=== PATIENT | male | born 1950 | race Caucasian/White ===

== ENCOUNTER → 2019-02-13 | Day surgery (SDC) | payer MEDICARE ==
[2019-02-11 12:28] LABS: BASOPHILS % 0.6 % (0.0-1.0); EOSINOPHILS # (AUTO) 0.1 (0.0-0.4); EOSINOPHILS % 3.9 % (0.0-6.0); HEMATOCRIT 43.6 % (38.2-49.6); HEMOGLOBIN 14.2 g/dL (14.0-18.0); LYMPHOCYTES # (AUTO) 0.7 (1.0-3.2); LYMPHOCYTES % 39.2 % (18.0-39.1); MEAN CORPUSCULAR HGB CONC 32.6 g/dL (31-35); MEAN CORPUSCULAR VOLUME 89.2 fL (81-99); MONOCYTES # (AUTO) 0.3 (0.2-0.8); MONOCYTES % 18.2 % (4.4-11.3); NEUTROPHILS # (AUTO) 0.7 (2.1-6.9); NEUTROPHILS % 37.5 % (38.7-80.0); PLATELET COUNT 127 x10e3/uL (140-360); RED BLOOD COUNT 4.89 x10e6/uL (4.3-5.7); RED CELL DISTRIBUTION WIDTH 14.2 % (11.7-14.4)
[2019-02-11 12:51] LABS: ANION GAP 10.2 mmol/L (8-16); BLOOD UREA NITROGEN 18 mg/dL (7-26); BUN/CREATININE RATIO 19 (6-25); CALCIUM 9.2 mg/dL (8.4-10.2); CARBON DIOXIDE 29 mmol/L (22-29); CHLORIDE 105 mmol/L (98-107); CREATININE, SERUM 0.96 mg/dL (0.72-1.25); EST GLOMERULAR FILTRATION RATE > 60 ML/MIN (60-); GLUCOSE 110 mg/dL (74-118); POTASSIUM 4.2 mmol/L (3.5-5.1); SODIUM 140 mmol/L (136-145)
--- NOTE | 2019-02-11 13:58 | Diagnostic Imaging Report ---
EXAMINATION: CHEST 2 VIEWS INDICATION: Preop for biopsy ^PER PROTOCOL ^PRE ADMIT COMPARISON: None FINDINGS: TUBES and LINES: None. LUNGS: Lungs are well inflated. Lungs are clear. There is no evidence of pneumonia or pulmonary edema. PLEURA: No pleural effusion or pneumothorax. HEART AND MEDIASTINUM: The cardiomediastinal silhouette is unremarkable. BONES AND SOFT TISSUES: No acute osseous lesion. Soft tissues are unremarkable. UPPER ABDOMEN: No free air under the diaphragm. IMPRESSION: No acute thoracic abnormality. Signed by: Dr. Patrick Reyes M.D. on 02/11/2019 1:55 PM
[~2019-02-13] MED LIST: ASPIRIN325 MG PO; B&O 60MG R/S 60 MG SUPP PR ONE; CARVEDILOL12.5 MG PO; CO Q-10100 MG PO; DEXAMETHASONE SOD PHOS INJ 4 MG/ML VIAL ONE; EFFIENT10 MG PO; EPHEDRINE SULFATE INJ 50 MG/ML VIAL ONE; FENTANYL CITRATE/PF 100MCG/2 ML INJ ONE; GENTAMICIN 80MG/NS 100 ML 200 ML IV ONE; HYDROCHLOROTHIA25 MG PO; IOPAMIDOL 610MG/1ML 300 MG/ML VIAL IV ONE; LIDOCAINE HCL 2% LOCAL INJ 5 ML SDV VIAL INJ ONE; LISINOPRIL10 MG PO; MIDAZOLAM HCL 2 MG/2 ML VIAL ONE; MULTI-VITAMIN1 EACH PO; NIASPAN500 MG PO; ONDANSETRON HCL INJ 2MG/ML 2ML 2 MG/ML VIAL ONE; PIPER-TAZ 3.375 GM 50 ML ONE; PROPOFOL IV EMULSION 10 MG/ML 20 ML VIAL ONE; SEVOFLURANE INHAL SOLN 250 ML PEN BTL ONE; SIMVASTATIN80 MG PO; TESTOSTERO200 MG/1 M INJ; VIT B PO; VIT D PO
--- OUTSIDE RECORDS SUMMARY | 2019-02-13 08:29 | XMS REPORT ---
Author Author [facility] Address Unknown Phone Unavailable Care Team Providers Care Certified Nurse Aide Name Role Phone JJ LOMAS Unavailable Unavailable Problems This patient has no known problems. Allergies, Adverse Reactions, Alerts This patient has no known allergies or adverse reactions. Medications This patient has no known medications. Results Test Description Test Time Test Comments Text Results Atomic Results Result Comments CHEST 2 VIEWS 2019-02-11 13:54:00 [place] [address] Patient Name: PIERRE PHILLIPS MR #: [id number] : 1950 Age/Sex: 68/M Req #: [id number] Adm Physician: Ordered by: JJ LOMAS MD Report #: [id number] Location: OR Room/Bed: Procedure: [id number] DX/CHEST 2 VIEWS Exam Date: Exam Time: REPORT STATUS: Signed EXAMINATION: CHEST 2 VIEWS INDICATION: Preop for biopsy PER PROTOCOL PRE ADMIT COMPARISON: None FINDINGS: TUBES and LINES: None. LUNGS: Lungs are well inflated. Lungs are clear. There is no evidence of pneumonia or pulmonary edema. PLEURA: No pleural effusion or pneumothorax. HEART AND MEDIASTINUM: The cardiomediastinal silhouette is unremarkable. BONES AND SOFT TISSUES: No acute osseous lesion. Sof t tissues are unremarkable. UPPER ABDOMEN: No free air under the diaphragm. IMPRESSION: No acute thoracic abnormality. Signed by: Dr. Patrick Reyes M.D. on 02/11/2019 1:55 PM Dictated By: PATRICK REYES MD, MD [id number] Transcribed By: LAURA on 02/11/19 1351 COPY TO: JJ LOMAS MD
[2019-02-13 11:15] VITALS: BP 120/79
--- NOTE | 2019-03-22 04:13 | Operative Report ---
DATE OF PROCEDURE: 02/13/2019 SURGEON: Henrique Silva MD PREOPERATIVE DIAGNOSES: 1. Elevated PSA. 2. Obstructive benign prostate hyperplasia.. 3. Incomplete bladder emptying. POSTOPERATIVE DIAGNOSES: 1. Elevated PSA. 2. Obstructive benign prostate hyperplasia.. 3. Incomplete bladder emptying. OPERATIONS PERFORMED: 1. Transrectal sonography interpretation. 2. Interpretation of ultrasonographic guidance for needle biopsies. 3. Transrectal needle biopsy of the prostate (separate procedure performed for the elevated PSA). 4. Cystourethroscopy with bilateral ureteral catheterization and retrograde ureteropyelography (separately procedure performed for the obstructive BPH and incomplete bladder emptying). 5. Interpretation of retrograde ureteropyelography. 6. Supervision of fluoroscopy, no radiologist present. ANESTHESIA: General. COMPLICATIONS: None. CLINICAL SUMMARY: Anthony Quinteros is a 68-year-old man with the above preoperative diagnoses. He is brought for the above procedures. The patient has chronic thrombocytopenia and we plan to monitor this very closely. He is aware of the risks of bleeding, infection, injury to adjacent structures, need for additional procedures and elected to proceed. The patient has also been on hormonal replacement therapy with testosterone. OPERATIVE PROCEDURE IN DETAIL: Informed consent was verified. Anthony Quinteros was properly identified, taken to the operating room, placed on the cystoscopy table in supine position. Anesthesia was uneventfully begun. He was carefully and gently repositioned in dorsal lithotomy position with all pressure points well padded. Digital rectal examination revealed a 35 g prostate, smooth, nonfluctuant without any nodules. Transrectal sonography was then performed. Interpretation of transrectal sonography. The patient's prostate volume is 43 mL. There was a hypoechoic area at the left peripheral zone at the mid and at the base. There were some calcifications noted diffusely. The capsule was smooth. The seminal vesicles were unremarkable. With ultrasonographic guidance, needle biopsies of the prostate were taken. A total of 12 biopsies were taken. These were sent in 6 containers, differentiated between right versus left and base versus mid versus apex. Following obtaining of the 12 biopsies, there was no significant bleeding noted. The patient's genitalia were then prepared and draped in usual sterile fashion. The cystoscope sheath with the visual obturator in place was atraumatically inserted into the patient's urethra. It was guided unremarkable distal urethra through the sphincteric region exhibited some hyperemia of the mucosa. We went through the normal sphincter and it went through the prostate bed, which was significant for bilobar prostatic hypertrophy with kissing lateral lobes. Panendoscopy of the bladder revealed trabeculations, but no tumors, no stones, no diverticula. No suspicious mucosal lesions were identified. An 8-Irish catheter was used to cannulate each ureter and retrograde ureteropyelograms were performed. Interpretation of retrograde ureteropyelography contrast was instilled in retrograde fashion bilaterally. There were no tumors, no stones, and no diverticula. Unobstructed drainage was observed bilaterally fluoroscopically. The patient's bladder was drained. The cystoscope was withdrawn. Belladonna and opium suppository was placed and the patient was uneventfully reversed from anesthesia and taken to recovery room in stable condition. Explicit postoperative instructions were given. We will follow the patient up in the office. MD DONAVAN Romo/MODL /[id number]
== END | disposition home or self-care (01) ==
LOC: OR 08:20
PROVIDERS: ATTEND Urology
DX: R97.20 Elevated prostate specific antigen [PSA] (principal); N41.0 Acute prostatitis; N41.1 Chronic prostatitis; N40.1 Benign prostatic hyperplasia with lower urinary tract symptoms; N13.8 Other obstructive and reflux uropathy; R39.14 Feeling of incomplete bladder emptying; N32.89 Other specified disorders of bladder; D69.6 Thrombocytopenia, unspecified; G47.33 Obstructive sleep apnea (adult) (pediatric); I25.10 Atherosclerotic heart disease of native coronary artery without angina pectoris; I25.2 Old myocardial infarction; Z01.810 Encounter for preprocedural cardiovascular examination; Z01.812 Encounter for preprocedural laboratory examination; Z01.818 Encounter for other preprocedural examination; Z79.82 Long term (current) use of aspirin; Z87.891 Personal history of nicotine dependence; Z95.5 Presence of coronary angioplasty implant and graft
CPT/HCPCS: 36415; 52005; 55700; 71046; 74420; 76872; 80048; 85025; 86850; 86900; 88305; 93005; C1758; J1100; J1580; J2001; J2250; J2405; J2543; J2704; Q9967; 76998; J3010

== ENCOUNTER 2020-07-24 12:13 | Inpatient (IN) | payer MEDICARE ==
[2020-07-21 10:19] LABS: EOSINOPHILS # (AUTO) 0.1 (0.0-0.4); HEMATOCRIT 39.1 % (38.2-49.6); HEMOGLOBIN 12.5 g/dL (14.0-18.0); LYMPHOCYTES # (AUTO) 0.4 (1.0-3.2); LYMPHOCYTES % 10.1 % (18.0-39.1); MEAN CORPUSCULAR HEMOGLOBIN 27.2 pg (28-32); MEAN CORPUSCULAR VOLUME 85.2 fL (81-99); MONOCYTES # (AUTO) 0.6 (0.2-0.8); NEUTROPHILS # (AUTO) 2.9 (2.1-6.9); NEUTROPHILS % 71.7 % (38.7-80.0); PLATELET COUNT 128 x10e3/uL (140-360); RED BLOOD COUNT 4.59 x10e6/uL (4.3-5.7); RED CELL DISTRIBUTION WIDTH 17.7 % (11.7-14.4)
[2020-07-21 10:49] LABS: ALANINE AMINOTRANSFERASE 31 IU/L (0-55); ALBUMIN 3.2 g/dL (3.5-5.0); ALBUMIN/GLOBULIN RATIO 1.6 (0.8-2.0); ALKALINE PHOSPHATASE 195 IU/L (40-150); ANION GAP 11.2 mmol/L (8-16); BLOOD UREA NITROGEN 11 mg/dL (7-26); BUN/CREATININE RATIO 12 (6-25); CALCIUM 9.2 mg/dL (8.4-10.2); CARBON DIOXIDE 30 mmol/L (22-29); CHLORIDE 105 mmol/L (98-107); CREATININE, SERUM 0.92 mg/dL (0.72-1.25); EST GLOMERULAR FILTRATION RATE > 60 ML/MIN (60-); GLUCOSE 75 mg/dL (74-118); POTASSIUM 4.2 mmol/L (3.5-5.1); SODIUM 142 mmol/L (136-145)
--- NOTE | 2020-07-21 10:53 | Diagnostic Imaging Report ---
EXAMINATION: CHEST 2 VIEWS INDICATION: Pre-operative COMPARISON: Chest radiograph 02/11/2019 FINDINGS: LINES/TUBES:Right chest port with tip in the SVC. LUNGS:The lungs are well-inflated. No focal consolidation or pulmonary edema. PLEURA:No pleural effusion or pneumothorax. MEDIASTINUM:The cardiomediastinal silhouette appears normal in size and shape. Atherosclerotic calcifications of the thoracic aorta. BONES/SOFT TISSUES:No acute osseous injury. ABDOMEN:No free air under the diaphragm. IMPRESSION: No focal pneumonia or pulmonary edema. Signed by: Mady Whipple MD on 07/21/2020 10:50 AM
[~2020-07-24] VITALS: Ht 177.8 cm; Wt 66.2 kg
[~2020-07-24 12:13] MED LIST changes: +ALLOPURINOL100 MG PO; +ASPIRIN81 MG PO; -B&O 60MG R/S 60 MG SUPP PR ONE; -DEXAMETHASONE SOD PHOS INJ 4 MG/ML VIAL ONE; +DOXAZOSIN MESYLA2 MG PO; -EPHEDRINE SULFATE INJ 50 MG/ML VIAL ONE; -FENTANYL CITRATE/PF 100MCG/2 ML INJ ONE; +FLOMAX0.4 MG PO; +FUROSEMIDE40 MG PO; -GENTAMICIN 80MG/NS 100 ML 200 ML IV ONE; -IOPAMIDOL 610MG/1ML 300 MG/ML VIAL IV ONE; -LIDOCAINE HCL 2% LOCAL INJ 5 ML SDV VIAL INJ ONE; +LOVENOX60 MG/0.6 SC; -MIDAZOLAM HCL 2 MG/2 ML VIAL ONE; -ONDANSETRON HCL INJ 2MG/ML 2ML 2 MG/ML VIAL ONE; -PIPER-TAZ 3.375 GM 50 ML ONE; -PROPOFOL IV EMULSION 10 MG/ML 20 ML VIAL ONE; -SEVOFLURANE INHAL SOLN 250 ML PEN BTL ONE
[2020-07-24] MEDS ORDERED: SEVOFLURANE INHAL SOLN 250 ML PEN BTL ONE (12:37)
[2020-07-24] MEDS ORDERED: DEXAMETHASONE SOD PHOS INJ 4 MG/ML VIAL ONE (12:37)
[2020-07-24] MEDS ORDERED: LIDOCAINE HCL 2% LOCAL INJ 5 ML SDV VIAL INJ ONE (12:37)
[2020-07-24] MEDS ORDERED: ONDANSETRON HCL INJ 2MG/ML 2ML 2 MG/ML VIAL ONE (12:37)
[2020-07-24] MEDS ORDERED: PROPOFOL IV EMULSION 10 MG/ML 20 ML VIAL ONE (12:37)
[2020-07-24] MEDS ORDERED: CEFTRIAXONE SOD 1 GM/NS 50 ML 50 ML IV ONE (12:39)
[2020-07-24] MEDS ORDERED: GENTAMICIN 80MG/NS 100 ML 200 ML IV ONE (12:39)
[2020-07-24] MEDS ORDERED: FENTANYL CITRATE/PF 100MCG/2 ML INJ ONE (12:53)
[2020-07-24] MEDS ORDERED: MIDAZOLAM HCL 2 MG/2 ML VIAL ONE (12:53)
[2020-07-24] MEDS ORDERED: CARVEDILOL12.5 MG PO (13:05)
[2020-07-24] MEDS ORDERED: NITROGLYCERIN0.4 MG SL (13:05)
[2020-07-24] MEDS ORDERED: GABAPENTIN100 MG PO (13:05)
[2020-07-24] MEDS ORDERED: LOPERAMIDE2 MG PO (13:05)
[2020-07-24] MEDS ORDERED: AZELASTINE137 MCG/0. (13:05)
[2020-07-24] MEDS ORDERED: KETOCONAZOLE15 GM TOP (13:05)
[2020-07-24] MEDS ORDERED: QUESTRAN PACKET4 GM PO (13:05)
[2020-07-24] MEDS ORDERED: IOPAMIDOL 300MG/ML 50ML INFUS..BTL IV ONE (13:26)
[2020-07-24] MEDS ORDERED: B&O 60MG R/S 60 MG SUPP PR ONE (13:26)
[2020-07-24] MEDS ORDERED: PHENAZOPYRIDINE HCL 100 MG TAB PO PRN (14:15)
[2020-07-24] MEDS ORDERED: ONDANSETRON HCL INJ 2MG/ML 2ML 2 MG/ML VIAL IV PRN ×2 (14:15→18:00)
[2020-07-24] MEDS ORDERED: ACETAMINOPHEN/CODEINE 300MG - 30MG TAB PO PRN (14:15)
[2020-07-24] MEDS ORDERED: DIPHENHYDRAMINE HCL 25 MG CAP PO PRN (14:15)
[2020-07-24] MEDS ORDERED: B&O 60MG R/S 60 MG SUPP PR PRN (14:15)
[2020-07-24 14:41] LABS: BASOPHILS % 0.5 % (0.0-1.0); EOSINOPHILS % 0.9 % (0.0-6.0); HEMATOCRIT 36.7 % (38.2-49.6); HEMOGLOBIN 11.8 g/dL (14.0-18.0); LYMPHOCYTES # (AUTO) 0.4 (1.0-3.2); LYMPHOCYTES % 9.2 % (18.0-39.1); MEAN CORPUSCULAR HEMOGLOBIN 27.2 pg (28-32); MEAN CORPUSCULAR HGB CONC 32.2 g/dL (31-35); MEAN CORPUSCULAR VOLUME 84.6 fL (81-99); MONOCYTES # (AUTO) 0.4 (0.2-0.8); MONOCYTES % 9.4 % (4.4-11.3); NEUTROPHILS # (AUTO) 3.4 (2.1-6.9); NEUTROPHILS % 79.8 % (38.7-80.0); PLATELET COUNT 111 x10e3/uL (140-360); RED BLOOD COUNT 4.34 x10e6/uL (4.3-5.7); RED CELL DISTRIBUTION WIDTH 17.6 % (11.7-14.4)
[2020-07-24] MEDS ORDERED: MORPHINE SULFATE INJ 4 MG/ML INJ 1ML ONE (14:43)
--- OUTSIDE RECORDS SUMMARY | 2020-07-24 14:44 | XMS REPORT | Clinical Summary ---
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 Active simvastatin (ZOCOR) 80 MG Take 80 mg by 0 tablet mouth nightly. Active b complex vitamins Take 1 0 capsule capsule by mouth daily. Active cholecalciferol, vitamin Take 5,000 0 D3, (VITAMIN D3) 125 mcg Units by (5,000 unit) Tab mouth daily. Active azelastine (ASTELIN) 137 1 spray by 0 mcg (0.1 %) nasal spray Nasal route 2 (two) times daily Use in each nostril as directed . 05/22/2021 Active ketoconazole (NIZORAL) 2 Apply 30 g 1 1 % cream topically 2 0 (two) times daily. 08/20/2020 Active tamsulosin (FLOMAX) 0.4 Take 1 30 capsule 2 mg Cap 24 hr capsule capsule (0.4 0 mg total) by mouth daily for 90 days. 08/20/2020 Active enoxaparin (LOVENOX) 40 Inject 0.4 12 mL 2 mg/0.4 mL Syrg mLs (40 mg 0 total) subcutaneousl y daily for 90 days. 08/20/2020 Active carvediloL (COREG) 6.25 Take 4 240 tablet 2 MG tablet tablets (25 0 mg total) by mouth 2 (two) times daily with breakfast and dinner for 90 days. Active banana Take 1 packet 60 each 0 [id number]. by mouth 2 0 (BANATROL PLUS) PwPk (two) times daily. 08/20/2020 Active furosemide (LASIX) 20 MG Take 2 60 tablet 2 1 tablet tablets (40 0 mg total) by mouth daily for 90 days. 08/20/2020 Active allopurinoL (ZYLOPRIM) Take 1 tablet 30 tablet 2 1 100 MG tablet (100 mg 0 total) by mouth daily for 90 days. 05/22/2020 Discontinued (Reorder) carvediloL (COREG) 25 MG Take 25 mg by 0 tablet mouth 2 (two) times daily with breakfast and dinner. 05/22/2020 Discontinued (Stop Taking at Discharge) prasugreL (EFFIENT) 10 mg Take 10 mg by 0 Tab tablet mouth daily. 05/22/2020 Discontinued (Stop Taking at Discharge) aspirin 325 MG tablet Take 325 mg 0 by mouth daily. 05/22/2020 Discontinued (Stop Taking at Discharge) lisinopriL Take 10 mg by 0 (PRINIVIL,ZESTRIL) 10 MG mouth daily. tablet 05/22/2020 Discontinued (Reorder) furosemide (LASIX) 20 MG Take 20 mg by 0 tablet mouth 2 (two) times daily. 05/22/2020 Discontinued (Stop Taking at Discharge) doxazosin (CARDURA) 2 MG Take 2 mg by 0 tablet mouth nightly. 05/22/2020 Discontinued (Reorder) furosemide (LASIX) 20 MG Take 2 20 tablet 0 1 tablet tablets (40 0 mg total) by mouth daily. 05/22/2020 Discontinued allopurinoL (ZYLOPRIM) Take 1 tablet 30 tablet 2 1 100 MG tablet (100 mg 0 total) by mouth daily for 90 days. 05/27/2020 cefdinir (OMNICEF) 300 MG Take 1 10 capsule 0 capsule capsule (300 0 mg total) by mouth every 12 (twelve) hours for 5 days. 06/01/2020 loperamide (IMODIUM) 2 mg Take 1 30 capsule 0 capsule capsule (2 mg 0 total) by mouth 4 (four) times daily as needed for Diarrhea for up to 10 days. Active Problems Problem Noted Date Coronary artery disease involving [place] coronary art tian 05/15/2020 SOB (shortness of breath) on exertion 05/15/2020 Waldenstrom macroglobulinemia 05/15/2020 Neutropenia, drug-induced (HCC)-improved 05/15/2020 Pedal edema 05/15/2020 Pulmonary emboli 2020 Encounters Care Team Description Date Type Specialty 05/14/2020 Travel Nicolas Harding MD Pierce, MD David Davidson, Mirlande Crabtree MD SOB (shortness of breath) (Primary Dx); Pulmonary embolism without acute cor pulmonale, unspecified chronicity, unspecified pulmonary embolism type (HCC); Waldenstrom macroglobulinemia (HCC); Thrombocytopenia (HCC); Coronary artery disease involving [place] heart without angina pectoris, unspecified vessel or lesion type; Pulmonary embolism, unspecified chronicity, unspecified pulmonary embolism type, unspecified whether acute cor pulmonale present (HCC); ISAAC (acute kidney injury) (HCC); Hyponatremia; Diarrhea, unspecified type; Urinary retention; Gross hematuria; Acute cystitis with hematuria 2020 Hospital General Internal Mi dicine - Encounter 05/22/2020 2020 Orders Only General Internal Mi dicine 2020 Travel after 07/24/2019 Social History Date Tobacco Use Types Packs/Day Years Used Never Smoker Smokeless Tobacco: Never Used Drinks/Week oz/Week Comments Alcohol Use No Alcohol Habits Answer Date Recorded How often do you have a drink containing alcohol? Never 2020 How many drinks containing alcohol do you have on No t asked a typical day when you are drinking? How often do you have six or more drinks on one Not asked occasion? Sex Assigned at Date Recorded Not on file Last Filed Vital Signs Reading Time Taken Comments Vital Sign 139/71 05/22/2020 7:47 PM CDT Blood Pressure 72 05/22/2020 7:47 PM CDT Pulse 36.8 C (98.2 F) 05/22/2020 7:47 PM CDT Temperature 18 05/22/2020 7:47 PM CDT Respiratory Rate 96% 05/22/2020 7:47 PM CDT Oxygen Saturation - - Inhaled Oxygen Concentration 96.6 kg (213 lb) 05/20/2020 6:00 AM CDT Weight 177.8 cm (5' 10") 05/14/2020 3:18 AM CDT Height 30.56 05/14/2020 3:18 AM CDT Body Mass Index Plan of Treatment Health Maintenance Due Date Last Done Comments COLON CANCER SCREENING 1950 COLONOSCOPY PNEUMOCOCCAL 65+ YRS (1 2013 of 1 - [id number]) Medicare IPPE (WELCOME TO 08/21/2019 MEDICARE) INFLUENZA VACCINE (#1) 2020 Procedures Comments Procedure Name Priority Date/Time Associated Diag nosis CBC W/PLT COUNT & AUTO STAT 05/22/2020 DIFFERENTIAL 5:08 AM CDT PHOSPHORUS Routine 05/22/2020 5:08 AM CDT MAGNESIUM STAT 05/22/2020 5:08 AM CDT BASIC METABOLIC PANEL (7) STAT 05/22/2020 5:08 AM CDT CBC W/PLT COUNT & AUTO STAT 05/22/2020 DIFFERENTIAL 5:08 AM CDT CBC W/PLT COUNT & AUTO STAT 05/21/2020 DIFFERENTIAL 6:11 AM CDT PHOSPHORUS Routine 05/21/2020 6:11 AM CDT MAGNESIUM STAT 05/21/2020 6:11 AM CDT BASIC METABOLIC PANEL (7) STAT 05/21/2020 6:11 AM CDT CBC W/PLT COUNT & AUTO STAT 05/21/2020 DIFFERENTIAL 6:11 AM CDT SARS-COV2/RT-PCR ([facility] & STAT 05/21/2020 REF LABS) 6:11 AM CDT URINE CULTURE Routine 05/20/2020 12:36 PM CDT CBC W/PLT COUNT & AUTO STAT 05/20/2020 DIFFERENTIAL 11:51 AM CDT PHOSPHORUS Routine 05/20/2020 11:51 AM CDT MAGNESIUM STAT 05/20/2020 11:51 AM CDT BASIC METABOLIC PANEL (7) STAT 05/20/2020 11:51 AM CDT CBC W/PLT COUNT & AUTO STAT 05/20/2020 DIFFERENTIAL 11:51 AM CDT STOOL PATH CHARGE Routine 05/20/2020 11:46 AM CDT SHIGA TOXIN SCREEN Routine 05/20/2020 11:46 AM CDT STOOL CULTURE + SHIGA Routine 05/20/2020 TOXIN 11:46 AM CDT C. DIFFICILE GDH TOXIN Routine 05/20/2020 11:44 AM CDT URINALYSIS W/ MICROSCOPIC Routine 05/20/2020 3:[address] ABDOMEN/PELVIS WITHOUT LEONARDO 05/20/2020 IV CONTRAST 2:50 AM CDT US RENAL COMPLETE Routine 05/19/2020 5:40 PM CDT KAPPA / LAMBDA LIGHT Routine 05/19/2020 CHAINS, SERUM 4:23 PM CDT MAGNESIUM Routine 05/19/2020 12:22 PM CDT BASIC METABOLIC PANEL (7) Routine 05/19/2020 12:22 PM CDT CBC W/PLT COUNT & AUTO Routine 05/19/2020 DIFFERENTIAL 5:57 AM CDT MAGNESIUM Routine 05/19/2020 5:57 AM CDT BASIC METABOLIC PANEL (7) Routine 05/19/2020 5:57 AM CDT CBC W/PLT COUNT & AUTO Routine 05/19/2020 DIFFERENTIAL 5:[address] BRAIN WITHOUT IV STAT 05/19/2020 CONTRAST 1:22 AM CDT APTT Routine 05/18/2020 2:42 PM CDT APTT Routine 05/18/2020 1:17 PM CDT APTT Routine 05/18/2020 6:04 AM CDT APTT Routine 05/18/2020 4:23 AM CDT APTT Routine 05/18/2020 2:07 AM CDT CBC W/PLT COUNT & AUTO Routine 05/18/2020 DIFFERENTIAL 1:16 AM CDT CBC W/PLT COUNT & AUTO Routine 05/18/2020 DIFFERENTIAL 1:16 AM CDT MAGNESIUM Routine 05/18/2020 1:15 AM CDT BASIC METABOLIC PANEL (7) Routine 05/18/2020 1:15 AM CDT TRANSFUSION SERVICE 05/17/2020 REPORT - SCAN 6:00 PM CDT APTT Routine 05/17/2020 5:36 PM CDT PERIPHERAL BLOOD SMEAR - Routine 05/17/2020 HOLD ONLY 5:36 PM CDT CBC W/PLT COUNT & AUTO Routine 05/17/2020 DIFFERENTIAL 2:28 PM CDT MAGNESIUM Routine 05/17/2020 2:28 PM CDT BASIC METABOLIC PANEL (7) Routine 05/17/2020 2:28 PM CDT CBC W/PLT COUNT & AUTO Routine 05/17/2020 DIFFERENTIAL 2:28 PM CDT PREPARE LEUKO-REDUCED Routine 05/16/2020 PLATELETS 11:54 PM CDT TRANSFUSION SERVICE 05/16/2020 REPORT - SCAN 6:01 PM CDT URINE PROTEIN AP Routine 05/16/2020 ELECTROPHORESIS, 24 HOUR 2:56 PM CDT CBC W/PLT COUNT & AUTO Routine 05/16/2020 DIFFERENTIAL 6:11 AM CDT CBC W/PLT COUNT & AUTO Routine 05/16/2020 DIFFERENTIAL 6:11 AM CDT BASIC METABOLIC PANEL (7) Routine 05/16/2020 6:11 AM CDT TRANSFUSION SERVICE 05/15/2020 REPORT - SCAN 6:01 PM CDT REPORT OF PROCEDURE - 05/15/2020 ENDOSCOPY SCAN 9:53 AM CDT CBC W/PLT COUNT & AUTO Routine 05/15/2020 DIFFERENTIAL 4:51 AM CDT VITAMIN B12 AND FOLATE Routine 05/15/2020 4:51 AM CDT B-TYPE NATRIURETIC FACTOR Routine 05/15/2020 (BNP) 4:51 AM CDT CBC W/PLT COUNT & AUTO Routine 05/15/2020 DIFFERENTIAL 4:51 AM CDT BASIC METABOLIC PANEL (7) Routine 05/15/2020 4:51 AM CDT TRANSFUSE LEUKO-REDUCED Routine 05/15/2020 PLATELETS 3:48 AM CDT ED ECG INTERPRETATION Routine 05/15/2020 2:12 AM CDT TRANSFUSE LEUKO-REDUCED Routine 05/15/2020 PLATELETS 1:19 AM CDT ABORH, MANUAL STAT 05/14/2020 8:07 PM CDT TYPE AND SCREEN, Routine 05/14/2020 AUTOMATED 6:41 PM CDT VENOUS DOPPLER LEGS LEONARDO 05/14/2020 BILATERAL 3:00 PM CDT 2D ECHO W/ DOPPLER STAT 05/14/2020 (CW/PW/COLOR) 2:15 PM CDT HAPTOGLOBIN Routine 05/14/2020 1:07 PM CDT FIBRINOGEN Routine 05/14/2020 1:07 PM CDT B-TYPE NATRIURETIC FACTOR LEONARDO 05/14/2020 (BNP) 10:05 AM CDT TROPONIN I LEONARDO 05/14/2020 10:04 AM CDT CBC W/PLT COUNT & AUTO Routine 05/14/2020 DIFFERENTIAL 5:07 AM CDT CBC W/PLT COUNT & AUTO Routine 05/14/2020 DIFFERENTIAL 5:07 AM CDT BASIC METABOLIC PANEL (7) Routine 05/14/2020 5:07 AM CDT SARS-COV2/RT-PCR ([facility] & STAT 05/14/2020 REF LABS) 12:[address] CHEST PE TEST DESIGN STAT 2020 9:27 PM CDT LACTIC ACID, VENOUS STAT 2020 7:34 PM CDT XR CHEST 1 VIEW STAT 2020 PORTABLE/BEDSIDE 5:58 PM CDT CBC W/PLT COUNT & AUTO STAT 2020 DIFFERENTIAL 5:52 PM CDT APTT STAT 2020 5:52 PM CDT PROTHROMBIN TIME/INR STAT 2020 5:52 PM CDT COMPREHENSIVE METABOLIC STAT 2020 PANEL 5:52 PM CDT LACTIC ACID, VENOUS STAT 2020 5:52 PM CDT CBC W/PLT COUNT & AUTO STAT 2020 DIFFERENTIAL 5:52 PM CDT BLOOD CULTURE STAT 2020 5:52 PM CDT BLOOD CULTURE STAT 2020 5:52 PM CDT ECG 12-LEAD Routine 2020 5:24 PM CDT ECG 12-LEAD Routine 2020 5:24 PM CDT Procedure Note - Interface, External Ris In - 2020 8:05 PM CDT Ventricula r Rate 66 BPM Atrial Rate 66 BPM P-R Interval 208 ms QRS Duration 90 ms Q-T Interval 426 ms QTC Calculatio n(Bazett) 446 ms P York 39 degrees R York -9 degrees T York 176 degrees Normal sinus rhythm Possible Left atrial enlargemen t Anterior infarct (cited on or before 0) T wave abnormalit y, consider lateral ischemia Abnormal ECG When compared with ECG of 1 10:24, Serial changes of Anterior infarct Present after 07/24/2019 Results * CBC with platelet count + automated diff (05/22/2020 5:08 AM CDT) Only the most recent of 10 results within the time period is included. WBC 3.9 3.5 - 10.5 K/L [facility] RBC 4.32 (L) 4.63 - 6.08 M/L [facility] Hemoglobin 11.6 (L) 13.7 - 17.5 GM/DL [facility] Hematocrit 34.8 (L) 40.1 - 51.0 % [facility] MCV 80.6 79.0 - 92.2 fL [facility] MCH 26.9 25.7 - 32.2 pg [facility] MCHC 33.3 32.3 - 36.5 GM/DL [facility] RDW 16.7 (H) 11.6 - 14.4 % [facility] Platelets 62 (L) 150 - 450 K/CU MM [facility] MPV Comment: Unable to report due [facility] to abnormal Platelet [facility] population distribution. [facility]ENTER nRBC 0 0 - 0 /100 WBC [facility] % Neutros 70 % [facility] % Lymphs 10 % [facility] % Monos 16 % [facility] % Eos 2 % [facility] % Baso 1 % [facility] # Neutros 2.76 1.78 - 5.38 K/L [facility] # Lymphs 0.40 (L) 1.32 - 3.57 K/L [facility] # Monos 0.64 0.30 - 0.82 K/L [facility] # Eos 0.07 0.04 - 0.54 K/L [facility] # Baso 0.02 0.01 - 0.08 K/L [facility] Immature 1 0 - 1 % [facility] Specimen Blood Performing Organization Address City/[facility] Ph one Number [place] [address] [place] [address] * Phosphorus (05/22/2020 5:08 AM CDT) Only the most recent of 3 results within the time period is included. Phosphorus 2.1 (L)Comment: Specimen 2.3 - 4.7 mg/dL [facility] slightly hemolyzed [facility] Specimen Blood Narrative Performed At [employer] ID - DANNY [facility] Performing Organization Address City/[facility] Ph one Number [address] * Magnesium (05/22/2020 5:08 AM CDT) Only the most recent of 7 results within the time period is included. Magnesium 1.9Comment: Specimen slightly 1.6 - 2.6 mg/dL [facility] hemolyzed [facility] Specimen Blood Narrative Performed At [employer] Du[employer] ID - [facility] Performing Organization Address City/[facility] Ph one Number [address] * Basic Metabolic Panel (05/22/2020 5:08 AM CDT) Only the most recent of 10 results within the time period is included. Sodium 132 (L) 136 - 145 meq/L [facility] Potassium 3.7Comment: Specimen slightly 3.5 - 5.1 meq/L [facility] hemolyzed [facility] Chloride 98 98 - 107 meq/L [facility] CO2 28 22 - 29 meq/L [facility] BUN 12 7 - 21 mg/dL [facility] Creatinine 0.71Comment: Specimen slightly 0.57 - 1.25 mg/ dL [facility] Glucose 94 70 - 105 mg/dL [facility] Calcium 8.1 (L) 8.4 - 10.2 mg/dL [facility] EGFR 109Comment: ESTIMATED GFR IS mL/min/1.73 sq m [facility] NOT ACCURATE CREATININE [facility] CLEARANCE IN PREDICTING [facility] GLOMERULAR FILTRATION RATE. ESTIMATED GFR IS NOT APPLICABLE FOR DIALYSIS PATIENTS. Specimen Blood Narrative Performed At [employer] EDITH - DANNY Escobar [facility] Performing Organization Address City/State/Zipcode Ph one Number [place] [address] [facility] * SARS-CoV2/RT-PCR (Asymptomatic ONLY) (05/21/2020 6:11 AM CDT) Only the most recent of 2 results within the time period is included. SARS-COV2/RT-PC Negative Not Detected, [facility] R Negative, See [facility] external report for [facility] linked test SARS-COV-2 [facility] PERFORMING LAB [facility] Specimen Other - Nasopharyngeal wall structure (body structure) Narrative Performed At Negative result for this test determine s that SARS-CoV-2 RNA was not present in [facility] the specimen above the Limit of Detecti on (LOD). However, Negative results do [facility] not preclude SARS-CoV-2 infection and s hould not be used as the sole basis for treatment or patient management decisio ns. Negative results must be combined with clinical observations, patient his tory, and epidemiological information. A false negative result may occur if a sp ecimen is improperly collected, transported or handled. A false negat edelmira result should be considered if patient's recent exposures or clinical presentation indicate that COVID-19 (SARS-CoV-2) is likely and diagnostic t ests for other causes of illness are negative. Re-testing should be consid ered in cases of suspected false negatives. The limit of detection for this assay i s 800 copies/mL. This SARS CoV-2 test is a real-time RT- PCR test intended for the qualitative detection of nucleic acid from SARS-CoV -2 in a nasopharyngeal swab specimen collected from individuals suspected of COVID-19 by their healthcare provider. This test has not been Food and Drug Ad ministration (FDA) cleared or approved. This is a modified version of an appr bridger Emergency Use Authorization (EUA) and is in the process of review by the FDA. Once authorized by the FDA, the issued EUA will be effective until the declaration that circumstances exist justifying the authorization of the nathanael rgency use of in vitro diagnostic tests for detection and/or diagnosis of COVID -19 is terminated under Section 564(b)(2) of the Act or the EUA is revoked under Section 564(g) of the Act. Fact Sheet for Healthcare Providers: https://www.[employer]/sites/default/files/product/documents/Fact_Sheet_HC_Provi tjfx_Fcrm_ZDAT-NdX-6.pdf Fact Sheet for Healthcare Patients: https://www.[employer]/sites/default/files/product/documents/Fact_Sheet_Patients _Dxsy_WLVI-VpN-2.pdf Performing Laboratory: [address] [place] [address] Performing Organization Address City/[facility] Ph one Number [place] [address] [facility] * Urine culture (05/20/2020 12:36 PM CDT) Result See comment [facility] Specimen Urine - Urinary catheter, device (physical object) Narrative Performed At <10,000 col/mL Gram Negative [facility] Performing Organization Address City/State/Zipcode Ph one Number [facility] [address] [place], [place] [address] [facility] * STOOL PATH CHARGE (05/20/2020 11:46 AM CDT) Pathogen exam Done [facility] charged [facility] Specimen Stool - Feces (substance) Performing Organization Address [facility] Ph one Number [facility] [address] [place], [place] [address] [facility] * Shiga Toxin Screen (05/20/2020 11:46 AM CDT) Shiga toxin 1 Not detected Not detected [facility] Shiga toxin 2 Not detected Not detected [facility] Specimen Stool - Feces (substance) Performing Organization Address [facility] Ph one Number [address] [facility] * Stool culture + Shiga toxin (05/20/2020 11:46 AM CDT) Result No Salmonella, Shigella or [facility] Campylobacter isolated [facility] Specimen Stool - Feces (substance) Performing Organization Address [facility] one Number [facility] [address] [place] [address] [facility] * Clostridium difficile [facility] Toxin (05/20/2020 11:44 AM CDT) C. Difficle Negative Negative [facility] C. Difficile Positive (A)Comment: C. Negative [facility] Antigen difficile present but [facility] not detected. Indicates MEDICAL CENTER colonization with non-toxigenic strain or level of toxin below detectable levels. No need for enteric isolation. Treatment is rarely needed (only when strong clinical suspicion for Clostridium difficile infection) Specimen Stool - Feces (substance) Narrative Performed At Testing performed by [employer] Rapid Cassette Assay. Fo r [facility], published [facility] sensitivity of the assay is 98.7% hao red to cytotoxicity testing. For Toxin [facility], published sensitivity is 87.8% and specificity 99.4% compared to cytotoxicity testing. Verification of kit performance was don e by the [facility] prior to clinical use. Performing Organization Address City/[facility] Ph one Number [facility] [address] [place] [address] [facility] * Urinalysis w/Microscopic (05/20/2020 3:23 AM CDT) Color, UA Red [facility] Clarity, UA Cloudy [facility] Specific 1.013 1.001 - 1.035 [facility] [place], [facility] pH, UA 6.5 5.0 - 8.0 [facility] Protein, UA 300 mg/dL (A) Negative [facility] Glucose, UA Negative Negative [facility] Ketones, UA Trace (A) Negative [facility] Bilirubin, UA Negative Negative [facility] Blood, UA Large (A) Negative [facility] Nitrite, UA Negative Negative [facility] Leukocytes, UA Large (A) Negative [facility] Urobilinogen, 0.2 0.2 - 1.0 mg/dL [facility] RBC, UA 1,075 /HPF [facility] WBC, UA 12,422 /HPF [facility] Bacteria, UA Many [facility] Specimen Source [facility] Specimen Urine Narrative Performed At [employer]ator ID - [auto] [facility] [employer] Duplicator ID - [facility] Performing Organization Address City/[facility]/Zipcode Ph one Number [place] [address] [facility] * CT abdomen/pelvis without iv contrast (05/20/2020 2:50 AM CDT) Specimen Narrative Performed At FINAL REPORT [employer] [facility] EXAM: CT of the abdomen and pelvis, wit hout contrast CLINICAL HISTORY: Abdominal pain, acu te, nonlocalized TECHNIQUE: CT of the abdomen and pelvis was performed without the intravenous administration of contrast. This exam was performed according to our departmental dose opti mization program which includes automated exposure control, ad justment of the mA and/or kV according to patient's size and/or use of iterative reconstructive technique. COMPARISON: None FINDINGS: Please note study is limited due to lac k of intravenous contrast. LOWER CHEST: Small bilateral pleural ef fusions. Bilateral lower lobe opacities which may represent compressi ve atelectasis and/or pneumonia. Cardiomegaly. Atheroscleroti c calcifications of the aorta and coronary arteries. LIVER: Within normal limits. BILE DUCTS: Within normal limits. GALL BLADDER: Cholelithiasis. PANCREAS: Within normal limits. SPLEEN: Splenomegaly. ADRENALS: Within normal limits. KIDNEYS/URETERS: Mild bilateral hydrone phrosis without obstructing stones, likely due to a distended urina ry bladder. Punctate nonobstructing left renal stone. URINARY BLADDER: Markedly distended and thin walled. REPRODUCTIVE ORGANS: Mildly enlarged pr ostate gland measuring 5.1 cm in diameter. BOWEL/MESENTERY: No bowel obstruction o r abnormal wall thickening. Normal appendix. PERITONEUM/RETROPERITONEUM: 2.6 x 2 x 1 .3 cm hyperdensity abutting the urinary bladder dome which may repr esent a small hematoma. Small mildly hyperdense abdominal and p elvic ascites. No free air. VESSELS: Calcific atherosclerosis. No a bdominal aortic aneurysm LYMPH NODES: No abdominal or pelvic lym phadenopathy. SOFT TISSUES: Anasarca. BONES: Degenerative changes of the visu alized spine. IMPRESSION: Markedly distended urinary bladder. Cor relate clinically for urinary retention. 2.6 x 2 x 1.3 cm hyperdensity abutting the urinary bladder dome which may represent a small hematoma. Differe ntial diagnosis is a bladder mass. Imaging follow-up is recommended. Small mildly hyperdense abdominal and p elvic ascites, which may be hemorrhagic. Punctate nonobstructing left renal ston e. Mild bilateral hydronephrosis likely due to the disten ded urinary bladder. Mildly enlarged prostate gland. Anasarca. Small bilateral pleural effusions. Bila teral lower lobe opacities which may represent subsegmental atelec tasis and/or pneumonia. Cardiomegaly. Signed: Nash Marc MD Report Verified Date/Time: 05/20/2020 05:52:02 Procedure Note Interface, External Ris In - 05/20/2020 5:55 AM CDT FINAL REPORT EXAM: CT of the abdomen and pelvis, without contrast CLINICAL HISTORY: Abdominal pain, acute, nonlocalized TECHNIQUE: CT of the abdomen and pelvis was performed without the intravenous administration of contrast. This exam was performed according to our departmental dose optimization program which includes automated exposure control, adjustment of the mA and/or kV according to patient's size and/or use of iterative reconstructive technique. COMPARISON: None FINDINGS: Please note study is limited due to lack of intravenous contrast. LOWER CHEST: Small bilateral pleural effusions. Bilateral lower lobe opacities which may represent compressive atelectasis and/or pneumonia. Cardiomegaly. Atherosclerotic calcifications of the aorta and coronary arteries. LIVER: Within normal limits. BILE DUCTS: Within normal limits. GALL BLADDER: Cholelithiasis. PANCREAS: Within normal limits. SPLEEN: Splenomegaly. ADRENALS: Within normal limits. KIDNEYS/URETERS: Mild bilateral hydronephrosis without obstructing stones, likely due to a distended urinary bladder. Punctate nonobstructing left renal stone. URINARY BLADDER: Markedly distended and thin walled. REPRODUCTIVE ORGANS: Mildly enlarged prostate gland measuring 5.1 cm in diameter. BOWEL/MESENTERY: No bowel obstruction or abnormal wall thickening. Normal appendix. PERITONEUM/RETROPERITONEUM: 2.6 x 2 x 1.3 cm hyperdensity abutting the urinary bladder dome which may represent a small hematoma. Small mildly hyperdense abdominal and pelvic ascites. No free air. VESSELS: Calcific atherosclerosis. No abdominal aortic aneurysm LYMPH NODES: No abdominal or pelvic lymphadenopathy. SOFT TISSUES: Anasarca. BONES: Degenerative changes of the visualized spine. IMPRESSION: Markedly distended urinary bladder. Correlate clinically for urinary retention. 2.6 x 2 x 1.3 cm hyperdensity abutting t he urinary bladder dome which may represent a small hematoma. Differential diagnosis is a bladder mass. Imaging follow-up is recommended. Small mildly hyperdense abdominal and pelvic ascites, which may be hemorrhagic. Punctate nonobstructing left renal stone. Mild bilateral hydronephrosis likely due to the distended urinary bladder. Mildly enlarged prostate gland. Anasarca. Small bilateral pleural effusions. Bilateral lower lobe opacities which may represent subsegmental atelectasis and/or pneumonia. Cardiomegaly. Signed: Nash Marc MD Report Verified Date/Time: 05/20/2020 05:52:02 Performing Organization Address City/State/Zipcode Ph one Number [employer] * US renal complete (05/19/2020 5:40 PM CDT) Specimen Narrative Performed At FINAL REPORT [employer] U/S, RENAL, COMPLETE Ultrasound of the Kidneys Clinical History: ISAAC REORDER PER ORIGINAL ORDER DUE HIGH VOL UME STATS Discussion: Sonographic evaluation of the kidneys i s performed. Right kidney: 11.3 x 6.2 x 5.8 cm, wi th cortical thickness of 1.3 cm. Increased cortical echogenicity. No mass. No shadowing calculus. No hydronephrosis. Left kidney: 11.2 x 6.3 x 6.3 cm, with cortical thickness of 1.3 cm. Increased cortical echogenicity. No m ass. No shadowing calculus. No hydronephrosis. Limited doppler evaluation of bilateral main renal arteries and veins are without acute abnormality. Bladder: Distended. Patient unable to void during imaging exam. Impression: Increased renal echotexture is nonspeci fic but has been associated with medical renal disease. Distended urinary bladder. Patient unab le to void during imaging exam. Signed: Oscar Owen MD Report Verified Date/Time: 05/19/2020 19:31:01 Procedure Note Interface, External Ris In - 05/19/2020 7:33 PM CDT FINAL REPORT U/S, RENAL, COMPLETE Ultrasound of the Kidneys Clinical History: ISAAC REORDER PER ORIGINAL ORDER DUE HIGH VOLUME STATS Discussion: Sonographic evaluation of the kidneys is performed. Right kidney: 11.3 x 6.2 x 5.8 cm, with cortical thickness of 1.3 cm. Increased cortical echogenicity. No mass. No shadowing calculus. No hydronephrosis. Left kidney: 11.2 x 6.3 x 6.3 cm, with cortical thickness of 1.3 cm. Increased cortical echogenicity. No mass. No shadowing calculus. No hydronephrosis. Limited doppler evaluation of bilateral main renal arteries and veins are without acute abnormality. Bladder: Distended. Patient unable to void during imaging exam. Impression: Increased renal echotexture is nonspecific but has been associated with medical renal disease. Distended urinary bladder. Patient unable to void during imaging exam. Signed: Oscar Owen MD Report Verified Date/Time: 05/19/2020 19:31:01 Performing Organization Address [facility] Ph one Number [facility] * [place] / lambda light chains, serum (05/19/2020 4:23 PM CDT) [place] Lt 9.0 3.3 - 19.4 mg/L [facility] Lambda Lt 2.7 (L) 5.7 - 26.3 mg/L [facility] [place]/Lambda,Fr 3.33 (H) 0.26 - 1.65 [facility] ee Comment: DIAGNOSTIC Free kappa/lambda ratio in INCORPORATED serum of normal individuals is 0.26-1.65. Excess production of free kappa or lambda chains can alter this ratio. Monoclonal free light chains are found in serum of patients with multiple myeloma, Waldenstrom's macroglobulinemia, mu-heavy chain disease, primary amyloidosis, light chain deposition disease, monoclonal gammopathy of undetermined significance, and lymphoproliferative disorders. Measurement of free light chain concentration in serum is useful for diagnosis, prognosis, monitoring disease activity and following response to therapy of these disorders. Specimen Blood Narrative Performed At Performing Lab [facility] [address] [place] [address] Yefri Santo MD, PhD, VARSHA Performing Organization Address [facility] Ph one Number [facility] [place] [place] [facility] [address] [facility] [address] * CT brain without IV contrast (05/19/2020 1:22 AM CDT) Specimen Narrative Performed At FINAL REPORT [facility] CT, BRAIN, WITHOUT CONTRAST CLINICAL INDICATION: Hallucinations COMPARISON: None TECHNIQUE: Noncontrast axial CT imagi ng of the brain and skull. Coronal and sagittal reformats obtained . DOSE REDUCTION: Dose modulation, iterat edelmira reconstruction, and/or weight-based adjustment of the mA/kV wa s utilized to reduce the radiation dose to as low as reasonably achievable. FINDINGS: Cerebral parenchyma: Global parenchymal volume loss and white matter hypoattenuation. No mass, acute intracr anial hemorrhage or acute cortical infarct. Cerebellum and brainstem: No acute find ings. Ventricles: No acute hydrocephalus. Extra-axial spaces: Unremarkable. Calvarium and skull base: Intact. Paranasal sinuses and mastoid air cells : Paranasal sinus mucosal thickening. Orbital contents: Included portions unr emarkable. Additional findings: None. IMPRESSION: No acute intracranial abnormality. Involutional and chronic microangiopath ic ischemic changes. If there is persistent clinical concern for intracranial pathology, MR examination is recommended for furth er characterization. Signed: Oscar Owen MD Report Verified Date/Time: 05/19/2020 01:35:02 Procedure Note Interface, External Ris In - 05/19/2020 1:37 AM CDT FINAL REPORT CT, BRAIN, WITHOUT CONTRAST CLINICAL INDICATION: Hallucinations COMPARISON: None TECHNIQUE: Noncontrast axial CT imaging of the brain and skull. Coronal and sagittal reformats obtained. DOSE REDUCTION: Dose modulation, iterative reconstruction, and/or weight-based adjustment of the mA/kV was utilized to reduce the radiation dose to as low as reasonably achievable. FINDINGS: Cerebral parenchyma: Global parenchymal volume loss and white matter hypoattenuation. No mass, acute intracranial hemorrhage or acute cortical infarct. Cerebellum and brainstem: No acute findings. Ventricles: No acute hydrocephalus. Extra-axial spaces: Unremarkable. Calvarium and skull base: Intact. Paranasal sinuses and mastoid air cells: Paranasal sinus mucosal thickening. Orbital contents: Included portions unremarkable. Additional findings: None. IMPRESSION: No acute intracranial abnormality. Involutional and chronic microangiopathic ischemic changes. If there is persistent clinical concern for intracranial pathology, MR examination is recommended for further characterization. Signed: Oscar Owen MD Report Verified Date/Time: 05/19/2020 01:35:02 Performing Organization Address [facility] one Number GE RIS * aPTT (05/18/2020 2:42 PM CDT) Only the most recent of 7 results within the time period is included. PTT >200.0 (HH) 22.5 - 36.0 seconds [facility] Specimen Blood Performing Organization Address [facility] one Number [address] [phone] [place] [address] * TRANSFUSION SERVICE REPORT - SCAN (05/17/2020 6:00 PM CDT) Only the most recent of 3 results within the time period is included. Narrative Performed At This result has an attachment that is n ot available. * Peripheral Blood Smear - Hold only (05/17/2020 5:36 PM CDT) Peripheral SAVED [facility] Specimen Blood Performing Organization Address [facility] one Number [address] [phone] [place] [address] * Prepare Leuko-Red PLT (05/16/2020 11:54 PM CDT) Unit ABO O Neg SAFETRACE TX UNIT NUMBER [id number] SAFETRACE TX Status TX_TIMEINCHART SAFETRACE TX Blood Bank PLATELETS SAFETRACE TX Product PRODUCT CODE [id number] SAFETRACE TX Unit ABO O Neg SAFETRACE TX UNIT NUMBER [id number] SAFETRACE TX Status READY SAFETRACE TX Blood Bank PLATELETS SAFETRACE TX Product PRODUCT CODE [id number] SAFETRACE TX Unit ABO O Neg SAFETRACE TX UNIT NUMBER [id number] SAFETRACE TX Status TX_TIMEINCHART SAFETRACE TX Blood Bank PL[place] SAFETRACE TX Product PRODUCT CODE [id number] SAFETRACE TX Specimen Blood Performing Organization Address [facility] one Number SAFETRACE TX * Urine Protein Electrophoresis, 24 hour (05/16/2020 2:56 PM CDT) Protein, 24hr 150 0 - 300 mg/24hr [facility] Urine [facility] Volume, Urine 1,150 ml [facility] Albumin, 24hr 31.3 % [facility] Urine [facility] Globulin, 24hr 68.7 % [facility] Urine [facility] UPEP, ID No monoclonal bands detected. [facility] Protein, Urine 13 0 - 14 mg/dL [facility] Pathologist: Patrizia Bliss MD [facility] (electronic signature) [facility] Specimen Urine Narrative Performed At [employer] Du[employer]ator ID - DB [facility] Performing Organization Address City/[facility] Ph one [address] [facility] * EKG-SCANNED (05/15/2020 9:53 AM CDT) Narrative Performed At This result has an attachment that is n ot available. * Vitamin B12 and Folate (05/15/2020 4:51 AM CDT) Vitamin B12 >2000 (H) 213 - 816 pg/mL [facility] Folate 15.60 >=7.00 ng/mL [facility] Specimen Blood Narrative Performed At [employer] ID - EDASI [facility] Performing Organization Address City/[facility] Ph one Number [address] [facility] * B-type Natriuretic Factor (BNP) (05/15/2020 4:51 AM CDT) Only the most recent of 2 results within the time period is included. BNP 429 (H) 0 - 100 pg/mL [facility] Specimen Blood Narrative Performed At [employer] Du[employer]ator ID - EDASI [facility] Performing Organization Address City/[facility]/Zipcode Ph one Number [facility] [address] [phone] * Transfuse Leuko-Red PLT (05/15/2020 3:48 AM CDT) Only the most recent of 2 results within the time period is included. * ECG/EKG Interpretation (05/15/2020 2:12 AM CDT) Narrative Performed At Nicolas Harding MD 2019 2:19 AM ECG/EKG Interpretation Date/Time: 05/15/2020 2:16 AM Performed by: Nicolas Harding MD Authorized by: Nicolas Harding MD The ECG was interpreted by ED physician . This ECG was compared with previous ECG(s).The ECG is interpreted as sinus rhythm. Rate is normal rate. Heart rate is 66 BPM. [place] is left. Right sided lead use: right-sided leads not used. Left sided lead use: Posterior leads we re not used. Clinical Impression: non-specific ECGECG reviewed and does n ot meet STEMI criteria. Patient tolerance: Patient tolerated the proced ure well with no immediate complications * ABORH, manual (05/14/2020 8:07 PM CDT) Rh Factor NEG [facility] ABO Grouping O [facility] Specimen Blood Performing Organization Address [facility] one Number [phone] [place] [address] * Type and screen, automated (05/14/2020 6:41 PM CDT) ABO/RH O NEGATIVE [facility] Ab Scrn NEGATIVE [facility] Specimen Blood Performing Organization Address [facility] Ph one [phone] [place] [address] * Venous doppler legs bilateral (05/14/2020 3:00 PM CDT) Ejection [facility] ECHO Fraction HEARTLAB MKCKESSON CPACS Specimen Impressions Performed At [facility] ECHO HEARTLAB 1. There is no deep venous obstruction in the common femoral, profunda [facility] femoral, femoral, popliteal, posterior tibial or peroneal veins. 2. There is no superficial venous obstr uction in the great saphenous vein. Left Impression 1. There is no deep venous obstruction in the common femoral, profunda femoral, femoral, popliteal, posterior tibial or peroneal veins. 2. There is no superficial venous obstr uction in the great saphenous vein. Conclusions Summary Venous duplex imaging and compression o f the bilateral lower extremities were performed. The veins were adequate ly visualized. The bilateral venous systems were patent and compressible wi th no evidence of thrombus. The venous Doppler waveforms were pulsatile indicating possible elevated right heart filling pressure . Signature Velocities are measured in cm/s ; Diame ters are measured in cm Narrative Performed At PV [facility] - Lower Extremities DVT Study [facility]ART [facility] Patient Name ANTHONY PHILLIPS Date of Study 05/14/2020 Age 70 Visit Number [id number] Gender Male Accession Number [id number] Date of 1950 Referring Mirlande DavidLillie , Room Number 2142 Physician Lands Resource Manager Niranjan Capone [facility] Interpreting Dell Hamm MD Physician Procedure Type of Study: Veins: Lower Extremities DVT Study, KERRI OUS DOPPLER LEG, BILATERAL. Indications for Study:To look for DVT a nd Pulmonary embolus . Patient Status:STAT. Study Location:Portable. Technical Quality:Adequate visualizatio n. Risk Factors History of Disease +---------+----+ + !Diagnosis!Date!Comments ! +---------+----+ + !Other ! !CAD s/p PCI in 2010 , Known PE ! +---------+----+ + Procedure Note Interface, External Ris In - 05/14/2020 4:32 PM CDT [facility] - Lower Extremities DVT Study Demographics Patient Name ANTHONY PHILLIPS Date of Study 05/14/2020 Age 70 Visit Number [id number] Gender Male Accession Number [id number] Date of 1950 Referring Mirlande HernandezLillie, Room Number 2142 Physician Lands Resource Manager Niranjan Capone T Interpreting Dell Hamm MD Physician Procedure Type of Study: Veins: Lower Extremities DVT Study, VENOUS DOPPLER LEG, BILATERAL. Indications for Study:To look for DVT and Pulmonary embolus . Patient Status:STAT. Study Location:Portable. Technical Quality:Adequate visualization. Risk Factors History of Disease +---------+----+ + !Diagnosis!Date!Comments ! +---------+----+ + !Other ! !CAD s/p PCI in 2010, Known PE ! +---------+----+ + Impressions Right Impression 1. There is no deep venous obstruction i n the common femoral, profunda femoral, femoral, popliteal, posterior tibial or peroneal veins. 2. There is no superficial venous obstru ction in the great saphenous vein. Left Impression 1. There is no deep venous obstruction i n the common femoral, profunda femoral, femoral, popliteal, posterior tibial or peroneal veins. 2. There is no superficial venous obstru ction in the great saphenous vein. Conclusions Summary Venous duplex imaging and compression of the bilateral lower extremities were performed. The veins were adequately visualized. The bilateral venous systems were patent and compressible with no evidence of thrombus. The venous Doppler waveforms were pulsatile indicating possible elevated right heart filling pressure . Signature Velocities are measured in cm/s ; Diameters are measured in cm Performing Organization Address City/State/[facility] Ph one Number [facility] * 2D Echo W/Doppler(CW/PW/Color) (05/14/2020 2:15 PM CDT) Ejection [facility] Specimen Narrative Performed At Transthoracic Echocardiography Report (TTE) [facility] E[facility] O HEARTLAB [facility]ographics [facility] Patient Name ANTHONY PHILLIPS e of Study 05/14/2020 HUMZA Gender Male Visit Number [id number] Race Room Number 2142 Number Date of 1950 Referring Physician Mikal Ryan MD Age 70 year(s) Lands Resource Manager Nini Maldonado [facility] Help Desk Agent Baylee Guerrier RD I nterpreting Pb Meneses MD Physician Procedure Type of Study TTE procedure:2DECHO W DOPP LER(CW/PW/COLOR) (STAT) Indications:RV Function evaluation and Concern for Pulm Emboli. Clinical History HGB 12.1 HCT 37.4% CAD, HLD, HTN,TAVON, WALDENSTROM'S MACROG LOBULINEMIA, PCI (2010) Height: 70 inches Weight: 95.25 kg (210 lbs) BSA: 2.13 m^2 BMI: 30.13 kg/m^2 HR: 63 bpm BP: 114/68 mmHg Summary 1. The left ventricle is chamber size ( by vol index) is small. No evidence of LV hypertrophy. All of the LV segmen ts contract normally. LVEF by Negrete's method of disk assessment is normal (55-60%). Normal diastolic function. LA size is normal (16-34 ml/m 2). 2. RV chamber size is normal. Global RV systolic function is mildly depressed. RA size is normal. Unable to estimate peak systolic PA pressure; inadequate TR velocity signal . 3. Mild pulmonary regurgitation. Previous Study No prior studies available for comparis on. Signature Findings Technical Quality: Technically adequate exam. Left Ventricle The left kerri tricle is chamber size (by vol index) is s mall. No evidence of LV hypertrophy. All of the LV s egments contract normally . Global LV systolic func tion normal . LVEF by Negrete's method of disk asse ssment is normal (55-60%) . Normal diastolic func tion. Left Atrium LA size is normal (16-34 ml/m2) . Right Ventricle RV chamber s ize is normal . Glob al RV systolic function is mildly depressed . Right Atrium RA size is normal. Aortic Valve Mild AoV cu sp thickening. Trac e aortic regurgitation. Mitral Valve Normal MV s tructure. Trac e mitral regurgitation. Tricuspid Valve TV structure is normal. A tr shanice of tricuspid regurgitation. Unab le to estimate peak systolic PA pressure; inad equate TR velocity signal. Pulmonic Valve Mild pulmona ry regurgitation. Norm al PV structure appears normal by available view s. Aorta Aortic root size (SInus of Valsalva diameter) is norm al . Pericardium No pericar dial effusion is visualized. IVC/SVC/PA/PV/Pleural The inferior ve na cava size is increased . The estimated RA pressure by IVC dynamics 11-15mmHg . Chambers/Structures Left Atrium LA Volume: 66.8 ml LA Area: 23.6 cm^2 LA Vol. Index: 31 ml/m^2 Left Ventricle LVIDd: 4.3 cm LVIDs: 2.54 cm LV Septum Diastolic: 0.98 cm LV PW Diastolic: 1.13 cm LV FS: 40.9 % LVEDV Negrete's:67.05 ml LVESV Negrete's:22.61 ml LVEDVI: 31 ml/m^2 LVEF Negrete's: 59.5 % LVESVI: 11 ml/m^2 LVOT Diameter: 1.93 cm Aorta Ao Root S of Soumya.: 2.91 cm Doppler/Quantitative Measurements Mitral Valve MV Peak E-Wave: 1.02 m/s MV Peak A-Wave: 0.5 m/s E/A Ratio: 2.02 Peak Gradient: 4.15 mmHg Deceleration Time: 110.8 msec MV Paul. Peak: Tissue Doppler E' Lateral Velocity: 0.1 m/s E/E': 9.74 Aortic Valve Peak Velocity: 1.24 m/s Mean Velocity: 0.88 m/s Peak Gradient: 6.12 mmHg Mean Gradient: 3.4 mmHg AV Area (continuity): 2.38 cm^2 AV VTI: 28.63 cm AV DVI: 0.81 LVOT Peak Velocity: 0.94 m/s Peak Gradient: 3.54 mmHg Mean Velocity: 0.68 m/s Mean Gradient: 2.01 mmHg LVOT Diameter: 1.93 cm LVOT VTI: 23.32 cm LVOT Area: 2.93 cm^2 LVOT SV:68.19 ml LVOT CO: 4.3 l/min LVOT CI: 2.02 l/min/m^2 Procedure Note Interface, External Ris In - 05/14/2020 5:33 PM CDT Transthoracic Echocardiography Report (TTE) Demographics Patient Name ANTHONY PHILLIPS Date of Study 05/14/2020 [facility]UM[place] Gender Male Visit Number [id number] Race Room Number 2142 Number Date of 1950 Referring Physician Mikal Ryan MD Age 70 year(s) Lands Resource Manager Nini Maldonado [facility] Help Desk Agent Baylee Guerrier RDCS Interpreting Pb Meneses MD Physician Procedure Type of Study TTE procedure:2DECHO W DOPPLER(CW/PW/COLOR) (STAT) Indications:RV Function evaluation and Concern for Pulm Emboli. Clinical History HGB 12.1 HCT 37.4% CAD, HLD, HTN,TAVON, WALDENSTROM'S MACROGLOBULINEMIA, PCI (2010) Height: 70 inches Weight: 95.25 kg (210 lbs) BSA: 2.13 m^2 BMI: 30.13 kg/m^2 HR: 63 bpm BP: 114/68 mmHg Summary 1. The left ventricle is chamber size (by vol index) is small. No evidence of LV hypertrophy. All of the LV segments contract normally. LVEF by Negrete's method of disk assessment is normal (55-60%). Normal diastolic function. LA size is normal (16-34 ml/m2). 2. RV chamber size is normal. Global RV systolic function is mildly depressed. RA size is normal. Unable to estimate peak systolic PA pressure; inadequate TR velocity signal. 3. Mild pulmonary regurgitation. Previous Study No prior studies available for comparison. Signature Findings Technical Quality: Technically adequate exam. Left Ventricle The left ventricle is chamber size (by vol index) is small. No evidence of LV hypertrophy. All of the LV segments contract normally . Global LV systolic function normal . LVEF by Negrete's method of disk assessment is normal (55-60%) . Normal diastolic function. Left Atrium LA size is normal (16-34 ml/m2) . Right Ventricle RV chamber size is normal . Global RV systolic function is mildly depressed . Right Atrium RA size is normal. Aortic Valve Mild AoV cusp thickening. Trace aortic regurgitation. Mitral Valve Normal MV structure. Trace mitral regurgitation. Tricuspid Valve TV structure is normal. A trace of tricuspid regurgitation. Unable to estimate peak systolic PA pressure; inadequate TR velocity signal. Pulmonic Valve Mild pulmonary regurgitation. Normal PV structure appears normal by available views. Aorta Aortic root size (SInus of Valsalva diameter) is normal . Pericardium No pericardial effusion is visualized. IVC/SVC/PA/PV/Pleural The inferior vena cava size is increased . The estimated RA pressure by IVC dynamics 11-15mmHg . Chambers/Structures Left Atrium LA Volume: 66.8 ml LA Area: 23.6 cm^2 LA Vol. Index: 31 ml/m^2 Left Ventricle LVIDd: 4.3 cm LVIDs: 2.54 cm LV Septum Diastolic: 0.98 cm LV PW Diastolic: 1.13 cm LV FS: 40.9 % LVEDV Negrete's:67.05 ml LVESV Negrete's:22.61 ml LVEDVI: 31 ml/m^2 LVEF Negrete's: 59.5 % LVESVI: 11 ml/m^2 LVOT Diameter: 1.93 cm Aorta Ao Root S of Soumya.: 2.91 cm Doppler/Quantitative Measurements Mitral Valve MV Peak E-Wave: 1.02 m/s MV Peak A-Wave: 0.5 m/s E/A Ratio: 2.02 Peak Gradient: 4.15 mmHg Deceleration Time: 110.8 msec MV Paul. Peak: Tissue Doppler E' Lateral Velocity: 0.1 m/s E/E': 9.74 Aortic Valve Peak Velocity: 1.24 m/s Mean Velocity: 0.88 m/s Peak Gradient: 6.12 mmHg Mean Gradient: 3.4 mmHg AV Area (continuity): 2.38 cm^2 AV VTI: 28.63 cm AV DVI: 0.81 LVOT Peak Velocity: 0.94 m/s Peak Gradient: 3.54 mmHg Mean Velocity: 0.68 m/s Mean Gradient: 2.01 mmHg LVOT Diameter: 1.93 cm LVOT VTI: 23.32 cm LVOT Area: 2.93 cm^2 LVOT SV:68.19 ml LVOT CO: 4.3 l/min LVOT CI: 2.02 l/min/m^2 Performing Organization Address [facility] one Number [facility] MKCKESSON CPACS * Fibrinogen (05/14/2020 1:07 PM CDT) Fibrinogen 496 (H) 225 - 434 mg/dl [facility] Specimen Blood Performing Organization Address [facility] Ph one Number [place] [phone] [place], [place] [address] [facility] * Haptoglobin (05/14/2020 1:07 PM CDT) Haptoglobin 51 14 - 258 mg/dL [facility] Specimen Blood Narrative Performed At [employer] Duplicator ID - PIAYA L [facility] Performing Organization Address [facility]/Zipcode Ph one Number [facility] [address] [place], [place] [address] [facility] * Troponin I (05/14/2020 10:04 AM CDT) Troponin I <0.01 0.00 - 0.03 ng/mL [facility] Specimen Blood - Entire left upper arm (body structure) Narrative Performed At Troponin I (TnI) levels must be interpreted in the co ntext of the presenting [facility] symptoms and the clinical findings. Elevated TnI leve ls indicate myocardial [facility] damage, but are not specific for ischem ic heart disease. Elevated TnI levels are seen in patients with other cardiac con ditions (including myocarditis and congestive heart failure), and slight T nI elevations occur in patients with other conditions, including sepsis, alma al failure, acidosis, acute neurological disease, and persistent tachyarrhythmia . [employer] Duplicator ID - PIAYA L Performing Organization Address City/[facility] one Number [place] [phone] [place], [place] [address] [facility] * CT chest PE test design (2020 9:27 PM CDT) Specimen Narrative Performed At Addendum Begins [employer] RIS REPORT STATUS:A Findings discussed with the patient's c are provider, NICOLAS HARDING MD, on 2020 9:46 PM . Signed: Oscar Owen MD Report Verified Date/Time: 2020 21:47:[address] FINAL RE[address], CHEST WITH IV CONTRAST- PE TEST REMY IGN INDICATION: PE suspected, high pretest prob GENERALIZED WEAKNESS, NOT ASSOCIATED WI TH EXTREMITIES SHORTNESS OF BREATH COMPARISON: None TECHNIQUE: Contrast enhanced CT examina tion of the chest in the pulmonary arterial phase from the bases to the apices. Orthogonal reformatted images as well as coronal m aximum intensity projection images were obtained. DOSE REDUCTION: Dose modulation, iterat edelmira reconstruction, and/or weight-based adjustment of the mA/kV wa s utilized to reduce the radiation dose to as low as reasonably achievable. FINDINGS: Lungs and pleura: No consolidation. Sma ll bilateral pleural effusions left greater than right basilar parench ymal opacities. Left upper lobe calcified granuloma. Central airways: Patent. Mediastinum: Subcarinal 2 cm x 1 cm lym ph node. Heart and pericardium: Normal heart siz e. There is straightening of the intraventricular septum, RV/LV rati o is 1. Trace pericardial effusion. Great vessels: Normal calibers. Pulmonary embolism: Small linear fillin g defect within the left lower lobe segmental and subsegmental pulmona ry arteries. Regional skeletal structures: Intact. Included upper abdomen: Ascites. Spleno megaly. Additional findings: None. IMPRESSION: Small nonocclusive segmental and subseg mental pulmonary emboli within left lower lobe pulmonary artery. Left lung base consolidation; possibly pulmonary infarct, pneumonia or atelectasis. Small bilateral pleural effusions with minimal right lung base compressive atelectasis. Ascites, splenomegaly. Signed: Oscar Owen MD Report Verified Date/Time: 2020 21:41:36 Procedure Note Interface, External Ris In - 2020 9:49 PM CDT Addendum Begins REPORT STATUS:A Findings discussed with the patient's care provider, NICOLAS HARDING MD, on 2020 9:46 PM. Signed: Oscar Owen MD Report Verified Date/Time: 2020 21:47:25 [address]um Ends FINAL REPORT [address], CHEST WITH IV CONTRAST- PE TEST DESIGN INDICATION: PE suspected, high pretest prob GENERALIZED WEAKNESS, NOT ASSOCIATED WITH EXTREMITIES SHORTNESS OF BREATH COMPARISON: None TECHNIQUE: Contrast enhanced CT examination of the chest in the pulmonary arterial phase from the bases to the apices. Orthogonal reformatted images as well as coronal maximum intensity projection images were obtained. DOSE REDUCTION: Dose modulation, iterative reconstruction, and/or weight-based adjustment of the mA/kV was utilized to reduce the radiation dose to as low as reasonably achievable. FINDINGS: Lungs and pleura: No consolidation. Small bilateral pleural effusions left greater than right basilar parenchymal opacities. Left upper lobe calcified granuloma. Central airways: Patent. Mediastinum: Subcarinal 2 cm x 1 cm lymph node. Heart and pericardium: Normal heart size. There is straightening of the intraventricular septum, RV/LV ratio is 1. Trace pericardial effusion. Great vessels: Normal calibers. Pulmonary embolism: Small linear filling defect within the left lower lobe segmental and subsegmental pulmonary arteries. Regional skeletal structures: Intact. Included upper abdomen: Ascites. Splenomegaly. Additional findings: None. IMPRESSION: Small nonocclusive segmental and subsegmental pulmonary emboli within left lower lobe pulmonary artery. Left lung base consolidation; possibly pulmonary infarct, pneumonia or atelectasis. Small bilateral pleural effusions with minimal right lung base compressive atelectasis. Ascites, splenomegaly. Signed: Oscar Owen MD Report Verified Date/Time: 2020 21:41:36 Performing Organization Address City/[facility] Ph one Number [facility] * Lactic acid, venous TIMED (2020 7:34 PM CDT) Only the most recent of 2 results within the time period is included. Lactate, Venous 1.71 0.50 - 2.20 mmol/L [facility] Specimen Blood Narrative Performed At [employer] Du[employer]ator ID - BS [facility] Performing Organization Address City/[facility] Ph one Number [place] [id number] [facility] * XR chest 1 view portable / bedside (2020 5:58 PM CDT) Specimen Narrative Performed At FINAL REPORT GE RIS TECHNIQUE: Frontal view of the chest. INDICATION: GENERALIZED WEAKNESS, NOT A SSOCIATED WITH EXTREMITIES SHORTNESS OF BREATH COMPARISON:None. IMPRESSION: Lines and hardware: Right chest port ca theter tip projects over the SVC. Heart and mediastinum: Calcific aorta. Lungs and pleura: Left basilar atelecta sis versus patchy airspace opacity. Consider lateral view. No pleu ral effusion. No pneumothorax. Soft tissues and bones: No acute abnorm ality. Signed: Shawn Marley MD Report Verified Date/Time: 2020 17:59:45 Reading Location: [address] Consult Reading Room Procedure Note Interface, External Ris In - 2020 6:02 PM CDT FINAL REPORT TECHNIQUE: Frontal view of the chest. INDICATION: GENERALIZED WEAKNESS, NOT ASSOCIATED WITH EXTREMITIES SHORTNESS OF BREATH COMPARISON:None. IMPRESSION: Lines and hardware: Right chest port catheter tip projects over the SVC. Heart and mediastinum: Calcific aorta. Lungs and pleura: Left basilar atelectasis versus patchy airspace opacity. Consider lateral view. No pleural effusion. No pneumothorax. Soft tissues and bones: No acute abnormality. Signed: Shawn Marley MD Report Verified Date/Time: 2020 17:59:45 Reading Location: [facility] C013 Consult Reading Room Performing Organization Address [facility] one Number GE RIS * Blood Culture #2 (2020 5:52 PM CDT) Only the most recent of 2 results within the time period is included. Result No growth in 5 days [facility] Specimen Blood Performing Organization Address [facility] one Number [place] [id number] [facility] * Prothrombin time/INR (2020 5:52 PM CDT) Protime 15.8 (H) 11.9 - 14.2 seconds [facility] INR 1.30 <=5.90 [facility] Specimen Blood Narrative Performed At Effective 01/16/2019: PT Reference Range Change [facility] New: 11.9-14.2 Previous: 11.7-14.7 [facility] MEDICAL ERCIKSON TER RECOMMENDED COUMADIN/WARFARIN INR THERA PY RANGES STANDARD DOSE: 2.0-3.0 Includes: PROP HYLAXIS for venous thrombosis, systemic embolization; TREATMENT for venous thro mbosis and/or pulmonary embolus. HIGH RISK: Target INR is 2.5-3.5 for pa tients wiht mechanical heart valves. Performing Organization Address [facility]/State/Zipcode Ph one Number [facility] [address] [place], [place] [address] [facility] * Comprehensive metabolic panel (2020 5:52 PM CDT) Protein, Total 5.2 (L) 6.0 - 8.3 gm/dL [facility] Albumin 2.9 (L) 3.5 - 5.0 g/dL [facility] Alkaline 191 (H) 40 - 150 U/L [facility] Total Bilirubin 1.8 (H) 0.2 - 1.2 mg/dL [facility] Sodium 133 (L) 136 - 145 meq/L [facility] Potassium 3.8 3.5 - 5.1 meq/L [facility] Chloride 102 98 - 107 meq/L [facility] CO2 27 22 - 29 meq/L [facility] BUN 24 (H) 7 - 21 mg/dL [facility] Creatinine 0.96 0.57 - 1.25 mg/dL [facility] Glucose 115 (H) 70 - 105 mg/dL [facility] Calcium 9.1 8.4 - 10.2 mg/dL [facility] AST 58 (H) 5 - 34 U/L [facility] ALT 38 6 - 55 U/L [facility] EGFR Comment: INSUFFICIENT CLINICAL [facility] DATA TO CALCULATE ESTIMATED [facility] GFR. [facility] Specimen Blood Narrative Performed At [employer] Du[employer]ator ID - BS [facility] Performing Organization Address City/State/Zipcode Ph one Number [facility] [address] [place], [place] [address] [facility] * ECG 12 lead (2020 5:24 PM CDT) Specimen Narrative Performed At Ventricular Rate 66 BPM GE MUSE Atrial Rate 66 BPM P-R Interval 208 ms QRS Duration 90 ms Q-T Interval 426 ms QTC Calculation(Bazett) 446 ms P [place] 39 degrees R York -9 degrees T [place] 176 degrees Normal sinus rhythm Possible Left atrial enlargement Anterior infarct (cited on or before ) T wave abnormality, consider lateral is chemia Abnormal ECG When compared with ECG of 14-JUN-2011 1 0:24, Serial changes of Anterior infarct Pres ent Confirmed by MD GARZA JOSEPH P ([id number]) on 05/14/2020 6:35:40 AM Procedure Note Interface, External Ris In - 05/14/2020 6:35 AM CDT Ventricular Rate 66 BPM Atrial Rate 66 BPM P-R Interval 208 ms QRS Duration 90 ms Q-T Interval 426 ms QTC Calculation(Bazett) 446 ms P [place] 39 degrees R York -9 degrees T [place] 176 degrees Normal sinus rhythm Possible Left atrial enlargement Anterior infarct (cited on or before 13-MAY-2020) T wave abnormality, consider lateral ischemia Abnormal ECG When compared with ECG of 14-JUN-2011 10:24, Serial changes of Anterior infarct Present Confirmed by MD RGEG, PAUL Olvera ([id number]) on 05/14/2020 6:35:40 AM Performing Organization Address City/State/Zipcode Ph one Number GE MUSE after 07/24/2019 Insurance Type Payer Benefit Subscriber ID Effective Phone Address Plan / Dates Group [facility] [id number] MEDICARE MGD CARE MEDICARE resent HMO [id number] Advance Directives For more information, please contact: [phone] Date Inactivated Comments Code Status Date Activated 05/23/2020 3:59 AM Full Code 05/14/2020 12:32 AM This code status was determined by: Patient
--- OUTSIDE RECORDS SUMMARY | 2020-07-24 14:44 | XMS REPORT | Continuity of Care Document ---
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 Role Phone [employer] Information Exchange Unavailable Un available Problems Problem Status Onset Date Classification Date Reported Comments Source UNK Active 0 01/28/2020 [facility] CELLULITIS Active 10/09/2019 [facility] LYMPHOMA Active 10/09/2019 [facility] Backache (finding) Active Problem 02/05/2020 [facility] Coronary arteriosclerosis (disorder) Active Problem [facility] Sleep apnea (finding) Active Problem 02/05/2020 [facility] t NON-HODGKIN LYMPHOMA, UNSPECIFIED, UNSPE Active [facility] Medications Medication Details Route Status Patient Instructions Ordering Provider Order Date Source ondansetron (ANES) Route: IV, Drug form: INJ, ONCE, Stop date: 02/03/20 12:29:00 CDT Inactive 02/03/2020 [facility] Docusate Sodium 100 MG Oral Capsule [Colace] 100 mg = 1 cap, PO, BID, PRN Constipation, # 20 cap, 0 Refill(s), Pharmacy: [facility]/pharmacy #[id number], 180.34, cm, 01/29/20 14:01:00 CDT, Height, 96.818, kg, 01/29/20 14:01:00 CDT, Weight Active 02/03/2020 [facility] Acetaminophen 300 MG / Codeine Phosphate 30 MG Oral Tablet [Tylenol with Codeine #3] 1 tab, PO, Q6H, PRN pain, X 7 day, # 28 tab, 0 Refill(s), Pharmacy: [facility]/pharmacy #[id number], 180.34, cm, 01/29/20 14:01:00 CDT, Height, 96.818, kg, 01/29/20 14:01:00 CDT, Weight Active 02/03/2020 [facility] ceFAZolin (ANES) Route: IV, Dr ug form: INJ, ONCE, Stop date: 02/03/20 12:17:00 CDT Inactive 02/03/2020 [facility] lidocaine (ANES) Route: IV, Dr ug form: INJ, ONCE, Stop date: 02/03/20 12:17:00 CDT Inactive 02/03/2020 [facility] propofol (ANES) Route: IV, Adam g form: INJ, ONCE, Stop date: 02/03/20 12:17:00 CDT Inactive 02/03/2020 [facility] fentaNYL (ANES) Route: IV, Adam g form: INJ, ONCE, Stop date: 02/03/20 12:02:00 CDT Inactive 02/03/2020 [facility] Lactated Ringers Injection IV (ANES) 1000 mL Route: IV, Total Volume: 1,000, Start date: 02/03/20 11:25:00 CDT, Stop date: 02/03/20 12:25:00 CDT Inactive 02/03/2020 [facility] Calcium Chloride 0.0014 MEQ/ML / Potassi um Chloride 0.004 MEQ/ML / Sodium Chloride 0.103 MEQ/ML / Sodium Lactate 0.028 MEQ/ML Injectable Solution 1,000 mL, Infuse Over: 1 hr, Route: IV, PRE OP, Dosing Weight 96.818 kg, Start date: 02/03/20 11:00:00 CDT, Duration: 1 doses or times, Bolus Inactive 02/03/2020 [facility] Calcium Chloride 0.0014 MEQ/ML / Potassi um Chloride 0.004 MEQ/ML / Sodium Chloride 0.103 MEQ/ML / Sodium Lactate 0.028 MEQ/ML Injectable Solution 1,000 mL, Rate: 75 ml/hr, Infuse over: 1 3.3 hr, Route: IV, Dosing Weight 96.818 kg, Total Volume: 1,000, Start date: 02/03/20 10:38:00 CDT, Duration: 30 day, Stop date: 03/04/20 10:37:00 CDT, 2.22, m2 Inactive 02/03/2020 [facility] Bumex Notes: (Same As: Bumex) No Longer Active 10/12/2019 [facility] spironolactone 25 mg oral tablet 25 mg = 1 tab, PO, BID, 0 Refill(s) Active 10/11/2019 [facility] Clotrimazole 10 MG/ML Topical Cream 1 appl, TOP, BID, X 14 day, # 60 gm, 1 Refill(s), Pharmacy: [facility]/pharmacy #[id number] Active 10/11/2019 [facility] 24 HR Niacin 500 MG Extended Release Tablet [Niaspan] Notes: (Same as: Niaspan) "Do Not Crush" Non-Formulary Item With food. No Longer Active 10/11/2019 [facility] Simvastatin Notes: (Same as: Z ocor) No Longer Active 10/11/2019 [facility] Spironolactone Notes: (Same As : Aldactone) Hazardous Drug Group 2:Non-antineoplastic Hazardous Drug -- Refer to safe handling procedure PPE [id number] N o Longer Active 10/10/2019 [facility] albumin human 25% intravenous solution Notes: Lot #: Mfg: (Same as: Plasbumin-25) "blood product derivative" WASTE: F/P - Red; E -Red MEDICATION WASTE Product Size: 25 gm Product Wasted: ___ gm No Longer Active 10/10/2019 [facility] Bumex Notes: (Same As: Bumex) No Longer Active 10/10/2019 [facility] carvedilol Notes: Give with fo od. (Same As: Coreg) No Longer Active 10/10/2019 [facility] Doxazosin Notes: (Same as: Car dura) No Longer Active 10/10/2019 [facility] Furosemide 20 MG Oral Tablet N otes: (Same as: Lasix) May cause GI upset. Give with food or milk. Inactive 10/10/2019 [facility] Lisinopril Notes: (Same as: Pr inivil, Zestril) No Longer Active 10/10/2019 [facility] Clotrimazole 10 MG/ML Topical Cream Notes: For external use only. (Same As: Lotrimin AF, Mycelex) No Longer Active 10/10/2019 [facility] rn juan york pt's own Azelastine to pharmacy for label rn juan nguyeng pt's own Azelastine to pharmacy for label, reminder, Drug form: MISC, Route: MISC, QSHIFT, 10/10/19 8:00:00 TECHNICAL MANAGER, Duration: 30 day, Stop date: 11/09/19 0:00:00 CDT, 0 No Longer Active 10/10/2019 [facility] Azelastine hydrochloride 0.137 MG/ACTUAT Metered Dose Nasal [place] 1 spray, Route: INHALER, Drug Form: SPRY , Dosing Weight 103.636, kg, BID, PRN Arrhythmias, Start date: 10/09/19 23:21:00 TECHNICAL MANAGER, Duration: 30 day, Stop date: 11/08/19 23:20:00 CDT No Longer Active 10/10/2019 [facility] carvedilol 25 mg oral tablet 2 5 mg = 1 tab, PO, BID, 0 Refill(s) Active 10/09/2019 [facility] prasugrel 10 MG Oral Tablet [Effient] 10 mg = 1 tab, PO, Daily, 0 Refill(s) Active 10/09/2019 [facility] Aspirin 81 mg, PO, Daily, 0 Re fill(s) Active 10/09/2019 [facility] lisinopril 10 mg oral tablet 1 0 mg = 1 tab, PO, Daily, 0 Refill(s) Active 10/09/2019 [facility] 24 HR Niacin 500 MG Extended Release Tablet [Niaspan] 500 mg = 1 tab, PO, Bedtime, 0 Refill(s) Active 10/09/2019 [facility] simvastatin 80 mg oral tablet 80 mg = 1 tab, PO, Bedtime, 0 Refill(s) Active 10/09/2019 [facility] Vitamin B Complex oral capsule 1 cap, PO, Daily, 0 Refill(s) Active 10/09/2019 [facility] Vitamin D3 5000 intl units oral capsule 5,000 IntlUnit = 1 cap, PO, Daily, # 30 cap, 1 Refill(s) Active 10/09/2019 [facility] Multi Vitamin+ 1 tab, PO, Rachel y, 0 Refill(s) Active 10/09/2019 [facility] Hydrochlorothiazide PO, Daily, 0 Refill(s) Inactive 10/09/2019 [facility] Furosemide 20 MG Oral Tablet 2 0 mg = 1 tab, PO, Daily, 0 Refill(s) Active 10/09/2019 [facility] testosterone cypionate IM, q4w k, 0 Refill(s) Active 10/09/2019 [facility] azelastine nasal 137 mcg/inh spray 137 microgram =, INHALER, BID, PRN Congestion | 1-2 sprays, # 1 ea, 0 Refill(s) Active 10/09/2019 [facility] doxazosin 2 mg oral tablet 2 m g = 1 tab, PO, Daily, 0 Refill(s) Active 10/09/2019 [facility] Omnipaque 300 injectable solution Notes: (Same as:Omnipaque 300). WASTE: F/P - Black; E - Municipal Trash Bin No Longer Active 10/09/2019 [facility] Allergies, Adverse Reactions, Alerts No Known Medication Allergies Immunizations No Data Provided for This Section Results Order Name Results Value Reference Range Date Interpretation Comments Source IMMUNOLOGY Coronavirus (COVID-19) NA A Not Detected (01/30/20 12:57 PM) Not Detected 01/30/2020 [facility] URINE CHEM Ur Protein 6.0 <=11.8 mg/dL 10/11/2019 [facility] URINE CHEM TV Protein (ml) 3000 800 - 1800 10/11/2019 [facility] URINE CHEM U Prot 24Hrs Col 24 (10/11/19 11:50 AM) 10/11/2019 [facility] URINE CHEM U24 Protein 180 <=148 mg/24hrs 10/11/2019 [facility] CHEM PANEL Phosphorus 2.4 2.5 - 4.5 10/11/2019 [facility] CHEM PANEL Glucose Lvl 109 70 - 99 10/11/2019 [facility] CHEM PANEL BUN 14 7 - 22 10/11/2019 [facility] CHEM PANEL Creatinine Lvl 1.17 0.50 - 1.40 10/11/2019 [facility] CHEM PANEL Sodium Lvl 141 135 - 145 10/11/2019 [facility] CHEM PANEL Potassium Lvl 3.8 3.5 - 5.1 10/11/2019 [facility] CHEM PANEL Chloride Lvl 106 95 - 109 10/11/2019 [facility] CHEM PANEL CO2 29 24 - 32 10/11/2019 [facility] CHEM PANEL Calcium Lvl 9.3 8.5 - 10.5 10/11/2019 [facility] CHEM PANEL AGAP 9.8 10.0 - 20.0 10/11/2019 [facility] CHEM PANEL eGFR 62 10/11/2019 Result Comment: The eGFR is calculated using the CKD-EPI formula. In most young, healthy individuals the eGFR will be >90 mL/min/1.73m2. The eGFR declines with age. An eGFR of 60-89 may be normal in some populations, particularly the elderly, for whom the CKD-EPI formula has not been extensively validated. Use of the eGFR is not recommended in the following populations:

Individuals with unstable creatinine concentrations, including patients and those with serious co-morbid conditions.

Patients with extremes in muscle mass or diet.

The data above are obtained from the National Kidney Disease Education Program (NKDEP) which additionally recommends that when the eGFR is used in patients with extremes of body mass index for purposes of drug dosing, the eGFR should be multiplied by the estimated BMI. [facility] CHEM PANEL Total Protein 5.2 6.4 - 8.4 10/11/2019 [facility] CHEM PANEL Albumin Lvl 2.5 3.5 - 5.0 10/11/2019 [facility] CHEM PANEL ALT 71 0 - 65 10/11/2019 [facility] CHEM PANEL AST 60 0 - 37 10/11/2019 [facility] CHEM PANEL Alk Phos 201 39 - 136 10/11/2019 [facility] CHEM PANEL Bili Total 1.4 0.2 - 1.3 10/11/2019 [facility] CHEM PANEL Bili Direct 0.5 0.0 - 0.3 10/11/2019 [facility] CHEM PANEL Globulin 2.7 2.7 - 4.2 10/11/2019 [facility] CHEM PANEL A/G Ratio 0.9 0.7 - 1.6 10/11/2019 [facility] CHEM PANEL Bili Indirect 0.9 0.0 - 1.0 10/11/2019 [facility] CHEM PANEL Glucose Lvl 101 70 - 99 10/11/2019 [facility] CHEM PANEL BUN 15 7 - 22 10/11/2019 [facility] CHEM PANEL Creatinine Lvl 1.21 0.50 - 1.40 10/11/2019 [facility] CHEM PANEL Sodium Lvl 143 135 - 145 10/11/2019 [facility] CHEM PANEL Potassium Lvl 3.9 3.5 - 5.1 10/11/2019 [facility] CHEM PANEL Chloride Lvl 108 95 - 109 10/11/2019 [facility] CHEM PANEL CO2 30 24 - 32 10/11/2019 [facility] CHEM PANEL Calcium Lvl 8.8 8.5 - 10.5 10/11/2019 [facility] CHEM PANEL Total Protein 5.2 6.4 - 8.4 10/11/2019 [facility] CHEM PANEL Albumin Lvl 2.4 3.5 - 5.0 10/11/2019 [facility] CHEM PANEL ALT 71 0 - 65 10/11/2019 [facility] CHEM PANEL AST 65 0 - 37 10/11/2019 [facility] CHEM PANEL Alk Phos 190 39 - 136 10/11/2019 [facility] CHEM PANEL Bili Total 1.5 0.2 - 1.3 10/11/2019 [facility] CHEM PANEL AGAP 8.9 10.0 - 20.0 10/11/2019 [facility] CHEM PANEL B/C Ratio 12 6 - 25 10/11/2019 [facility] CHEM PANEL Globulin 2.8 2.7 - 4.2 10/11/2019 [facility] CHEM PANEL A/G Ratio 0.9 0.7 - 1.6 10/11/2019 [facility] CHEM PANEL eGFR 60 10/11/2019 Result Comment: The eGFR is calculated using the CKD-EPI formula. In most young, healthy individuals the eGFR will be >90 mL/min/1.73m2. The eGFR declines with age. An eGFR of 60-89 may be normal in some populations, particularly the elderly, for whom the CKD-EPI formula has not been extensively validated. Use of the eGFR is not recommended in the following populations:

Individuals with unstable creatinine concentrations, including patients and those with serious co-morbid conditions.

Patients with extremes in muscle mass or diet.

The data above are obtained from the National Kidney Disease Education Program (NKDEP) which additionally recommends that when the eGFR is used in patients with extremes of body mass index for purposes of drug dosing, the eGFR should be multiplied by the estimated BMI. [facility] HEMATOLOGY Segs 42.7 45.0 - 75.0 10/11/2019 [facility] HEMATOLOGY Lymphocytes 33.1 20.0 - 40.0 10/11/2019 [facility] HEMATOLOGY Monocytes 17.3 2.0 - 12.0 10/11/2019 [facility] HEMATOLOGY Eosinophils 6.3 0.0 - 4.0 10/11/2019 [facility] HEMATOLOGY Basophils 0.6 0.0 - 1.0 10/11/2019 [facility] HEMATOLOGY Neutrophils # 0.9 1.5 - 8.1 10/11/2019 [facility] HEMATOLOGY Lymphocytes # 0.7 1.0 - 5.5 10/11/2019 [facility] HEMATOLOGY Monocytes # 0.4 0.0 - 0.8 10/11/2019 [facility] HEMATOLOGY Eosinophils # 0.1 0.0 - 0.5 10/11/2019 [facility] HEMATOLOGY WBC 2.1 3.7 - 10.4 10/11/2019 [facility] HEMATOLOGY RBC 4.72 4.70 - 6.10 10/11/2019 [facility] HEMATOLOGY Hgb 13.6 14.0 - 18.0 10/11/2019 [facility] HEMATOLOGY Hct 41.1 42.0 - 54.0 10/11/2019 [facility] HEMATOLOGY MCV 87.1 80.0 - 94.0 10/11/2019 [facility] MCH 28.9 27.0 - 31.0 10/11/2019 [facility] MCHC 33.2 32.0 - 36.0 10/11/2019 [facility] RDW 17.7 11.5 - 14.5 10/11/2019 [facility] Platelet 67 133 - 450 10/11/2019 [facility] MPV 11.0 7.4 - 10.4 10/11/2019 [facility] LIPIDS Trig 56 <=149 mg/dL 10/11/2019 [facility] LIPIDS Chol 122 <=199 mg/dL 10/11/2019 [facility] LIPIDS HDL 61 >=61 mg/dL 10/11/2019 [facility] CHD Risk 2.00 4.00 - 7.30 10/11/2019 [facility] LIPIDS LDL (Calculated) 50 <=99 mg/dL 10/11/2019 [facility] LIPIDS VLDL 11 10/11/2019 [facility] IMMUNOLOGY Spec Type (UPE) rando m 100x 10/11/2019 [facility] IMMUNOLOGY Tot Prot (UPE) 7 10/11/2019 [facility] IMMUNOLOGY Interp (UPE) Urine protein electrophoresis shows minimal proteinuria. No monoclonal bands are identified; however, evaluation is limited by the small amount of protein and the resulting lack of discernible bands on the electrophoretic gel. Interpretation performed at [facility] [place] [place]. 10/11/2019 [facility] URINE AND STOOL UA Turbidity Clear (10/10/19 10:29 PM) Clear 10/11/2019 [facility] URINE AND STOOL UA Spec Grav 1.024 <=1.030 10/11/2019 [facility] URINE AND STOOL UA pH 7.0 5.0 - 8.0 10/11/2019 [facility] URINE AND STOOL UA Protein Negative mg/dL Negative mg/dL 10/11/2019 [facility] URINE AND STOOL UA Glucose Negative mg/dL Negative mg/dL 10/11/2019 [facility] URINE AND STOOL UA Ketones Negative mg/dL Negative mg/dL 10/11/2019 [facility] URINE AND STOOL UA Bili Negative *NA* (10/10/19 10:29 PM) Negative 10/11/2019 [facility] URINE AND STOOL UA Blood Negative (10/10/19 10:29 PM) Negative 10/11/2019 [facility] URINE AND STOOL UA Urobilinogen 4.0 0.1 - 1.0 10/11/2019 [facility] URINE AND STOOL UA Nitrite Negative (10/10/19 10:29 PM) Negative 10/11/2019 [facility] URINE AND STOOL UA Leuk Est Negative (10/10/19 10:29 PM) Negative 10/11/2019 [facility] URINE AND STOOL UA WBC 1 0 - 5 10/11/2019 [facility] URINE AND STOOL UA RBC <1 0 - 2 10/11/2019 [facility] URINE AND STOOL UA Sq Epi None Seen 10/11/2019 [facility] URINE AND STOOL UA Color Ltyellow 10/11/2019 [facility] URINE CHEM U Creatinine 67.30 10/11/2019 [facility] URINE CHEM U Protein 5.0 10/11/2019 [facility] URINE CHEM U Prot/Creat 0.07 10/11/2019 [facility] URINE CHEM U Eos None Seen (10/10/19 10:29 PM) None Seen 10/11/2019 [facility] URINE CHEM U Sodium 71 10/11/2019 [facility] IMMUNOLOGY Hep B Core IgM Negat edelmira *NA* (10/10/19 5:41 AM) Negative 10/10/2019 [facility] IMMUNOLOGY Hep A IgM Negat edelmira *NA* (10/10/19 5:41 AM) Negative 10/10/2019 [facility] IMMUNOLOGY Hep Bs Ag Negat edelmira *NA* (10/10/19 5:41 AM) Negative 10/10/2019 [facility] IMMUNOLOGY Hep C Ab Negat edelmira *NA* (10/10/19 5:41 AM) Negative 10/10/2019 [facility] CHEM PANEL Glucose Lvl 91 70 - 99 10/09/2019 [facility] CHEM PANEL BUN 25 7 - 22 10/09/2019 [facility] CHEM PANEL Creatinine Lvl 1.30 0.50 - 1.40 10/09/2019 [facility] CHEM PANEL Sodium Lvl 141 135 - 145 10/09/2019 [facility] CHEM PANEL Potassium Lvl 4.3 3.5 - 5.1 10/09/2019 [facility] CHEM PANEL Chloride Lvl 107 95 - 109 10/09/2019 [facility] CHEM PANEL CO2 31 24 - 32 10/09/2019 [facility] CHEM PANEL Calcium Lvl 9.6 8.5 - 10.5 10/09/2019 [facility] CHEM PANEL Total Protein 5.7 6.4 - 8.4 10/09/2019 [facility] CHEM PANEL Albumin Lvl 2.2 3.5 - 5.0 10/09/2019 [facility] CHEM PANEL ALT 83 0 - 65 10/09/2019 [facility] CHEM PANEL AST 70 0 - 37 10/09/2019 [facility] CHEM PANEL Alk Phos 219 39 - 136 10/09/2019 [facility] CHEM PANEL Bili Total 0.9 0.2 - 1.3 10/09/2019 [facility] CHEM PANEL AGAP 7.3 10.0 - 20.0 10/09/2019 [facility] CHEM PANEL B/C Ratio 19 6 - 25 10/09/2019 [facility] CHEM PANEL Globulin 3.5 2.7 - 4.2 10/09/2019 [facility] CHEM PANEL A/G Ratio 0.6 0.7 - 1.6 10/09/2019 [facility] CHEM PANEL eGFR 55 10/09/2019 Result Comment: The eGFR is calculated using the CKD-EPI formula. In most young, healthy individuals the eGFR will be >90 mL/min/1.73m2. The eGFR declines with age. An eGFR of 60-89 may be normal in some populations, particularly the elderly, for whom the CKD-EPI formula has not been extensively validated. Use of the eGFR is not recommended in the following populations:

Individuals with unstable creatinine concentrations, including patients and those with serious co-morbid conditions.

Patients with extremes in muscle mass or diet.

The data above are obtained from the National Kidney Disease Education Program (NKDEP) which additionally recommends that when the eGFR is used in patients with extremes of body mass index for purposes of drug dosing, the eGFR should be multiplied by the estimated BMI. [facility] CHEM PANEL H-4-Hplpnbhva 2.7 1.0 - 2.3 10/09/2019 [facility] CHEM PANEL LDH 232 98 - 192 10/09/2019 [facility] HEMATOLOGY WBC 2.4 3.7 - 10.4 10/09/2019 [facility] RBC 5.00 4.70 - 6.10 10/09/2019 [facility] Hgb 14.5 14.0 - 18.0 10/09/2019 [facility] Hct 43.2 42.0 - 54.0 10/09/2019 [facility] MCV 86.4 80.0 - 94.0 10/09/2019 [facility] MCH 29.0 27.0 - 31.0 10/09/2019 [facility] MCHC 33.5 32.0 - 36.0 10/09/2019 [facility] RDW 18.0 11.5 - 14.5 10/09/2019 [facility] Platelet 61 133 - 450 10/09/2019 [facility] MPV 10.5 7.4 - 10.4 10/09/2019 [facility] Sed Rate 12 0 - 15 10/09/2019 [facility] Plt Morph Regina l (10/09/19 2:05 PM) Normal 10/09/2019 [facility] Segs 54.3 45.0 - 75.0 10/09/2019 [facility] Lymphocytes 22.6 20.0 - 40.0 10/09/2019 [facility] Monocytes 18.4 2.0 - 12.0 10/09/2019 [facility] Eosinophils 3.7 0.0 - 4.0 10/09/2019 [facility] Basophils 1.0 0.0 - 1.0 10/09/2019 [facility] Neutrophils # 1.3 1.5 - 8.1 10/09/2019 [facility] Lymphocytes # 0.5 1.0 - 5.5 10/09/2019 [facility] Monocytes # 0.4 0.0 - 0.8 10/09/2019 [facility] Eosinophils # 0.1 0.0 - 0.5 10/09/2019 [facility] IMMUNOLOGY Viscosity 1.4 1.6 - 1.9 10/09/2019 Result Comment: Values above 2.7 may ind icate paraproteinemia is present.

This test was developed and its performance characteristics
determined by [facility]. It has not been cleared or
approved by the Food and Drug Administration.
Performed At: [facility]
[address], [place] [id number]
Alan Ortiz MD Ph:[phone] [facility] Pathology Reports No Data Provided for This Section Diagnostic Reports Report Value Date Source Chest 1view DX PROCEDURE INFOR MATION: Exam: XR Chest, 1 View Exam date and time: 02/03/2020 12:48 PM Age: 69 years old Clinical indication: Device placement; Additional info: /port a cath placement TECHNIQUE: Imaging protocol: XR of the chest Views: 1 view. COMPARISON: No relevant prior studies available. FINDINGS: Tubes, catheters and devices: Right-sided Port-A-Cath is noted with the catheter tip at the proximal SVC. Lungs: Mild decreased lung volumes. No consolidation. Transverse linear opacity at the lateral left lung base represent scarring or plate atelectasis; lungs are otherwise clear. Pleural space: Unremarkable. No pleural effusion. No pneumothorax. Heart/Mediastinum: Cardiac silhouette is within normal limits. Vasculature is unremarkable. Vascular calcification at the thoracic aortic arch. Bones/joints: No acute abnormality. IMPRESSION: 1. Right-sided Port-A-Cath is noted with the catheter tip at the proximal SVC without pneumothorax. 2. Minimal plate atelectasis or scarring at the lateral left lung base. 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 Total DLP: 1354.9 mGy-cm Radiation optimization: All CT scans at this facility use at least one of these dose optimization techniques: automated exposure control; mA and/or kV adjustment per patient size (includes targeted exams where dose is matched to clinical indication); or iterative reconstruction. Contrast material: OMNI; Contrast volume: 80 ml; Contrast route: IV; Other contrast: Oral, 50cc omni , 900cc breeza ; COMPARISON: No relevant prior studies available. FINDINGS: Lungs: Minor atelectasis in the lung bases. No consolidation. No lung mass. Pleural space: Small bilateral pleural fluid collections. Heart: Coronary artery calcification. Aorta: Unremarkable. No aortic aneurysm. Lymph nodes: Small nonspecific lymph nodes in each axilla. Bones/joints: Unremarkable. No acute fracture. Soft tissues: Unremarkable. 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 Total DLP: 1354.9 mGy-cm Radiation optimization: All CT scans at this facility use at least one of these dose optimization techniques: automated exposure control; mA and/or kV adjustment per patient size (includes targeted exams where dose is matched to clinical indication); or iterative reconstruction. Contrast material: OMNI; Contrast volume: 80 ml; Contrast route: IV; Other contrast: Oral, 50cc omni , 900cc breeza ; COMPARISON: No relevant prior studies available. FINDINGS: Liver: Heterogeneous enhancement of the liver. In the dome of the liver there is an 11 mm circumscribed hypodensity that may be a cyst. Inferior to this there are 3 lesions in the inferior right lobe of the liver that range in size from 11-20 mm that have some nodular peripheral enhancement may be hemangiomas. Gallbladder and bile ducts: Nonspecific mild gallbladder wall thickening. No stones seen in the gallbladder. Pancreas: Normal. No ductal dilation. Spleen: Normal size spleen measuring 11.4 cm in length. Adrenals: Normal. No mass. Kidneys and ureters: 3 mm non-obstructing upper pole stone left kidney. The kidneys enhance symmetrically. No mass or hydronephrosis. Stomach and bowel: Unremarkable. No obstruction. No mucosal thickening. Appendix: No evidence of appendicitis. Intraperitoneal space: Minimal fluid in the pericolic gutter on each side. Vasculature: Unremarkable. No abdominal aortic aneurysm. Lymph nodes: Unremarkable. No enlarged lymph nodes. Bladder: Unremarkable as visualized. Reproductive: Prostate enlargement. Bones/joints: Unremarkable. No acute fracture. Soft tissues: Infiltration throughout the fat in the mesentery and subcutaneous soft tissues suggesting anasarca. IMPRESSION: CT Chest Without and With Contrast 1. Small bilateral pleural fluid collect ions with basilar atelectasis. 2. No adenopathy in the chest CT Abdomen And Pelvis Without And With Contrast 1. Heterogeneous enhancement of the live r with what appears to be a circumscribed cyst in the dome of the liver. Inferior to this there are 3 lesions in the right lobe of the liver with enhancement characteristics that suggest hemangiomas. 2. Anasarca with nonspecific gallbladder wall thickening 3. Nonobstructing left kidney stone 4. No significant retroperitoneal or pel nena adenopathy Cholo Garvin MD On 10/10/2019 19:59:01; [id number] 10/10/2019 [facility] Consultation Notes No Data Provided for This Section Discharge Summaries No Data Provided for This Section History and Physicals No Data Provided for This Section Vital Signs Vital Sign Value Date Comments Source Systolic (mm Hg) 132 02/03/2020 [facility] Diastolic (mm Hg) 70 02/03/2020 [facility] Systolic (mm Hg) 135 02/03/2020 [facility] Diastolic (mm Hg) 76 02/03/2020 [facility] Systolic (mm Hg) 110 02/03/2020 [facility] Diastolic (mm Hg) 66 02/03/2020 [facility] Respitory Rate 17 02/03/2020 [facility] Respitory Rate 9 02/03/2020 [facility] Respitory Rate 9 02/03/2020 [facility] Height 180.34 cm 01/29/2020 [facility] Weight 96.818 01/29/2020 [facility] BMI Calculated 29.77 01/29/2020 [facility] Systolic (mm Hg) 155 01/28/2020 [facility] Diastolic (mm Hg) 84 01/28/2020 [facility] Heart Rate 64 01/28/2020 [facility] Temperature Oral (F) 98.6 F 01/28/2020 [facility] Height 180.34 cm 01/28/2020 [facility] Weight 96.989 01/28/2020 [facility] BMI Calculated 29.82 01/28/2020 [facility] Temperature Oral (F) 97.9 F 10/11/2019 [facility] Heart Rate 78 10/11/2019 [facility] Systolic (mm Hg) 108 10/11/2019 [facility] Diastolic (mm Hg) 59 10/11/2019 [facility] Temperature Oral (F) 98 F 10/11/2019 [facility] Heart Rate 83 10/11/2019 [facility] Systolic (mm Hg) 106 10/11/2019 [facility] Diastolic (mm Hg) 61 10/11/2019 [facility] Temperature Oral (F) 98.2 F 10/11/2019 [facility] Heart Rate 86 10/11/2019 [facility] Systolic (mm Hg) 119 10/11/2019 [facility] Diastolic (mm Hg) 71 10/11/2019 [facility] Height 180.34 cm 10/10/2019 [facility] Weight 103.636 10/10/2019 [facility] BMI Calculated 31.87 10/10/2019 [facility] Height 180.34 cm 10/09/2019 [facility] Weight 103.636 10/09/2019 [facility] BMI Calculated 31.87 10/09/2019 [facility] Encounters Location Location Details Encounter Type Encounter Number Reason For Visit Attending Provider ADM Date DC Date Status Source [facility] Inpatient [id number] [facility] 10/09/2019 10/12/2019 [facility] Outpatient [id number] Jeffries Le 01/28/2020 Active [facility] Outpatient [id number] [facility] 01/28/2020 01/29/2020 [facility] Outpatient [id number] Jeffries Le 02/03/2020 Active [facility] [id number] Jeffries Le 02/03/2020 02/03/2020 [facility] Procedures Procedure Code Date Perfomer Comments Source Cardiac catheterization<sup>1</sup> [id number] 2002 [facility] Colonoscopy [id number] [facility] Epidural steroid injection [id number] [facility] Assessment and Plan Assessment and Plan Date Source Extracted from:Title: Clinical Document Author: Mervin Zurita MD Date: 02/03/20 OPERATIVE REPORT DATE OF PROCEDURE: 02/03/2020 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 SURGEON: Mervin Zurita MD STRAIGHT CUTTER: None. ANESTHESIA: General. ESTIMATED BLOOD LOSS: Minimal. FINDINGS: Port-A-Cath tip in the mid SVC. IV FLUIDS: Per anesthesia. POST OP PLAN: Discharge home. INDICATIONS: 69-year-old gentleman [facility] with a diagnosis of lymphoplasmacytic lymphoma. The patient was determined a candidate for chemotherapy by the oncologist. The option of a Port-A-Cath was offered to the patient, risks and benefits were discussed and the patient voiced understanding and consented to the procedure. PROCEDURE IN DETAIL: Patient was taken the operating room, placed in the operating table, and anesthesia was induced. The neck and chest was prepped and draped in the usual sterile fashion. A timeout was called and the correct patient as well as procedure was verified. The patient had SCDs on for thromboembolic prophylaxis and received antibiotics within 1 of the incision. The ultrasound was placed over the internal jugular veins, and the right was noted to be adequate for placement. It was accessed using the guidewire needle, and the guidewire was placed into the venous system and confirmed with fluoroscopy. The catheter dilator sheath was advanced over the guidewire using the Seldinger technique, and the dilator as well as guidewire was removed leaving the catheter sheath. Attention was turned to the right subclavian chest wall, 0.5% Marcaine was infused followed by 3 cm incision carried on electrocautery. A subcutaneous pocket was made to accommodate the port using a combination of sharp as well as blunt dissection. The catheter was placed into the catheter sheath and the catheter sheath was removed. The catheter was then tunneled in the subcutaneous plane and brought out through the subclavian incision site. The catheter was pulled back under direct fluoroscopic guidance until the tip was in the mid SVC. The catheter was trimmed to size, locked onto the port, and the port was anchored onto the anterior chest wall using 2-0 Prolene. The port was tested, noted to have good return of blood, and flushed readily. The deep dermal tissue was reapproximated using 3-0 Vicryl in interrupted manner, and the skin was closed using 4-0 Monocryl in a running subcuticular manner. The patient was extubated in the operating room and transferred to recovery in stable condition. All instrument and laparotomy counts are correct. 02/03/2020 FADUMO Hooker Extracted from:Title: renal Author: Ana Rosa Pederson MD Date: 10/11/19 Daily Progress Note [facility]: [facility] 69[facility] (: 1950) M Attending: Marlen Canas MD Service: Internal Medicine Chief Complaint: anasarca Subjective: better diuresis REVIEW OF SYSTEMS: Per HPI Objective: Vitals Tmp(F) Pulse BP RR SpO2 FIO2 10/11 15:53 97.9 78 108/59 - - 94 --- 10/11 12:08 98 83 106/61 -- 96 --- 10/11 08:27 98.2 86 119/71 - - 95 --- 10/11 03:09 98.6 91 124/60 - - 96 --- 10/11 00:38 98.9 95 121/60 - - 95 --- Input/Output Record In Out Bal 10/11 24hr Tot 104 0 104 10/10 24hr Tot 448 2300 - 1852 24 Hr Tmax: 98.9F (37.17c) at 10/11 00:3 8 Vital Signs are the last 5 in the past 48 hours. Date Wt(kg) Wt(lb) Ht(cm) Ht(in) Method 10/09 (initial) 103.64 228.00 Estimated 10/09 180.34 71.00 Stated General- NAD HEENT- RADHA CVS- s1,s2 RR Chest- CTA Abdomen- soft Extremities- edema Skin- intact, bruising Neuro- non focal Data: 24hr Labs 10/11 1150 U24 Protein 180 H Ur Protein 6.0 U Prot 24Hrs Col 24 TV Protein (ml) 3000 H 10/11 0453 Sodium Lvl 143 Potassium Lvl 3.9 Chloride Lvl 108 CO2 30 AGAP 8.9 L Glucose Lvl 101 H Creatinine Lvl 1.21 BUN 15 B/C Ratio 12 Total Protein 5.2 L Albumin Lvl 2.4 L Globulin 2.8 A/G Ratio 0.9 Calcium Lvl 8.8 ALT 71 H AST 65 H Bili Total 1.5 H Alk Phos 190 H eGFR 60 Chol 122 Trig 56 HDL 61 LDL (Calculated) 50 VLDL 11 CHD Risk 2.00 L Phosphorus 2.4 L Glucose Lvl 109 H BUN 14 Creatinine Lvl 1.17 Sodium Lvl 141 Potassium Lvl 3.8 Chloride Lvl 106 CO2 29 AGAP 9.8 L Calcium Lvl 9.3 eGFR 62 Total Protein 5.2 L Albumin Lvl 2.5 L Bili Total 1.4 H Bili Direct 0.5 H Bili Indirect 0.9 Alk Phos 201 H AST 60 H ALT 71 H Globulin 2.7 A/G Ratio 0.9 TSH 3.260 WBC 2.1 L RBC 4.72 Hgb 13.6 L Hct 41.1 L MCV 87.1 MCH 28.9 MCHC 33.2 RDW 17.7 H Platelet 67 L MPV 11.0 H Segs 42.7 L Monocytes 17.3 H Lymphocytes 33.1 Eosinophils 6.3 H Basophils 0.6 Neutrophils # 0.9 L Lymphocytes # 0.7 L Monocytes # 0.4 Eosinophils # 0.1 10/10 2229 U Sodium 71 U Creatinine 67.30 U Protein 5.0 U Prot/Creat 0.07 U Eos None Seen UA Color Ltyellow UA Turbidity Clear UA Spec Grav 1.024 UA pH 7.0 UA Protein Negative UA Glucose Negative UA Ketones Negative UA Bili Negative UA Blood Negative UA Urobilinogen 4.0 H UA Nitrite Negative UA Leuk Est Negative UA RBC <1 UA WBC 1 UA Sq Epi None Seen 10/09 1405 Viscosity 1.4 L Assessment/Plan: _ anasarca: from nephrotic range proteinuria and may be liver dz. needs more serologies and possible renal bx. can be done outpt. HTN: cont. meds. add ACEI if tolerated Fluid overload: Bumex 2 mg daily at home. salt and fluid restriction Extracted from:Title: Clinical Document Author: Marlen Canas MD Date: 10/09/19 [facility] Marlen Canas M.D. Board Certified in Hematology Oncology Hospice and Palliative Care The patient is a 69-year-old male who has been seen by service and since 2013 at which time he had presented with neutropenia which was severe with white count of approximately 1.2-1.5 and ANC of less than 500 the patient underwent multiple bone marrows which was nondiagnostic however in November 2015 the patient underwent his first bone marrow which was positive for CD5 positive lymphoplasmacytic neoplasm [id number] mutation. At that time the patient was restarted on chemotherapy however delayed chemotherapy until he returned from his visit to [place]. Surprisingly on his return from [place] the patient was found to have a normal white count and since 2015 the patient's white count has been within the normal levels. The patient has been following up with us on a regular basis and in June 2019 beta-2 microglobulin was 2.2 creatinine 1.0 total protein was 6.2 LDH 188 and the patient had a white count of 5.8 with a hemoglobin of 15.5 hematocrit of 44.8 and platelet count of 130,000 According to the patient since August he had been struggling with edema he had presented to his primary care and was given diuretics the patient has been taking spironolactone as well as Lasix and the edema appears to be increasing the patient now has got bilateral edema of both legs which is extending up to the scrotal area Over the past 3 days the patient has also developed a redness over both lower extremities which appears to be associated with the edema but the patient is afebrile and there is no tenderness Generally the patient does have some puffiness and anasarca He denies any chest pain. Somewhat short irregular heartbeat Denies any nausea vomiting diarrhea constipation hematochezia melena hemoptysis hematemesis or hematuria Denies fevers night sweats or weight loss does in fact state that he has gained about 15 pounds despite being on a keto diet Denies sore throat difficulty swallowing or hoarseness Past medical Myocardial infarction in 2002 and 2007 Diagnosis of lymphoplasmacytic lymphoma with neutropenia 2015 did not receive chemotherapy Decreased testosterone level Back pain status post intra-articular injection March 2018 Thrombocytopenia mild Malignant melanoma removed from leg at [facility] 2012 and removal from nose 2012 4 cardiac stents patient is on a stent 2 and 2010 Medications carvedilol 25 mg p.o. daily prasugel l hydrochloride 10 mg daily Lisinopril 10 mg p.o. daily Niaspan 500 mg tablet extended release 1 tablet at bedtime orally Simvastatin 80 mg p.o. Multivitamin Hydrochlorothiazide 25 mg 1 tablet in the morning 3 times a week Doxazosin mesylate 2 mg tablet 1 tablet orally once a day Family history Mother alive Father diagnosed with other malignant neoplasm of unspecified site prostate cancer COPD myocardial infarction CHF Social Former smoker quit smoking at age 26 Alcohol. 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 has contact with chemicals during his work states she has been exposed to a large amount of phenol carbolic acid and benzene through his work Allergies no known drug allergies On examination the patient definitely looks sicker than usual Has puffiness around his face arms Both legs are markedly edematous with redness over the tibial areas Also has some shotty lymph nodes in the pelvic area Liver enlarged nontender Breath sounds decreased CVS S1-S2 Vital Signs (last 24 hrs) Last Charted Temp Oral 98.4 DegF (OCT 09:34) Heart Rate Peripheral 83 bpm (OCT 09:34) SBP 107 mmHg (OCT 09:) Weight 103.63 kg (OCT 09:) Height 180.34 cm (OCT 09:) BMI 31.87 (OCT 09) Scheduled Meds (1):clotrimazole topical (clotrimazole topical 1% cream) Unscheduled Meds (2):iohexol (Omnipaque 300 injectable solution), iohexol (Omnipaque 300 injectable solution) PRN Meds: None One Time Meds: None Continuous Infusions: None Labs (Last four charted values) WBC L 2.4 (OCT 09) Hgb 14.5 (OCT 09) Hct 43.2 (OCT 09) Plt L 61 (OCT 09) Na 141 (OCT 09) K 4.3 (OCT 09) CO2 31 (OCT 09) Cl 107 (OCT 09) Cr 1.30 (OCT 09) BUN H 25 (OCT 09) Glucose Random 91 (OCT 09) Ca 9.6 (OCT 09) Assessment and plan the patient is a very pleasant 69-year-old male who was previously 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] the patient has repeatedly refused chemotherapy since his white count had increased to normal levels and the patient has not suffered from any infection due to the low white count moreover the patient had no other problems sent contrary to the lymphoma At this point in time howeverThe patient's white count has decreased to 2400/cm with an increase in monocytes of 18.4 and ANC is 1300 CT scan of the chest abdomen and pelvis is in progress Given the high possibility that the patient may have developed progression of his Waldenstrm's lymphoma or may have progressed into a higher grade of lymphoma we will wait for the results of the CT scan and if necessary proceed with a biopsy We have requested ID to consult on the patient for possible cellulitis versus a fungal infection of the legs We have also consulted with nephrology regarding the possibility of management of the fluid overload of approximately 20 pounds We will request Dr. Bean ticket counter to consult on the patient and also perform an echocardiogram this is important since the patient has had an [place] x2 in the past and also because he is on blood thinners with a platelet count of 61,000 and also because the patient may require chemotherapy which may require utilization of cardiotoxic medications It is noted that the patient's LDH has increased markedly to 232 beta-2 microglobulin is 2.7 and all of his liver function tests are increased most likely due to hepatic congestion Changes in the patient's management will depend upon the patient's hospital course If the patient is found to have recurrence of his Waldenstrm's lymphoma and serum viscosity is found to be raised the patient may require dialysis prior to starting chemotherapy 10/12/2019 [facility] Plan of Care No Data Provided for This Section Social History Social History Date Source Social History TypeResponse Alcohol Current, Type Beer. Frequency: 1-2 times per week. Substance Abuse Use: None. Smoking Status Never smoker; Exposure to Tobacco Smoke None; Cigarette Smoking Last 365 Days No; Reg Smoking Cessation Counseling No entered on: 01/29/20 01/29/2020 [facility] Social History TypeResponse Alcohol Current, Type Beer. Frequency: 1-2 times per week. Substance Abuse Use: None. Smoking Status Never smoker; Exposure to Tobacco Smoke None; Cigarette Smoking Last 365 Days No; Reg Smoking Cessation Counseling No entered on: 01/29/20 01/29/2020 [facility] Family History No Data Provided for This Section Advance Directives No Data Provided for This Section Functional Status No Data Provided for This Section
--- OUTSIDE RECORDS SUMMARY | 2020-07-24 14:45 | XMS REPORT | Continuity of Care Document ---
Author Author [facility] t Organization [facility] Address [address] [place] [address] Phone Unavailable Care Team Providers Care Fur Coat Sewer Name Role Phone Oliver CASPER PCP Unavailable Oliver CASPER Attphys Unavailable SYSTEM, NOT IN PROVIDER Attphys Unavailable CESILIA JJ Attphys Unavailable Diandra MERCADO CHI Attphys Unavailable LATA LEDBETTER Attphys Unavailable Jess STEVENS Attphys Unavailable Freddy DURAN Attphys Unavailable RICARDO HOPE Attphys Unavailable TINO NAJERA Attphys Unavailable Pascual MAIN Attphys Unavailable Etelvina BROWN, Pascual Valenzuela Attphys [phone] Milo BROWN, Radha Anderson Attphys David Salgado MD, Bro Nogueira Attphys [phone] Connor BROWN, Merle Ren Attphys Estela Zurita Attphys MissaelMarilin Attphys Oliver CASPER Admphys Unavailable MILO RADHA LIZANDRO Admphys Unavailable Marilin Canashina Admphys Payers Payer Name Policy Type Policy Number Effective Date Expiration Date Kim white [facility] MEDIC[facility] ADVANTAGE [id number] 2019 00:00:00 [employer] - MEDICARE MGD CAREUNYefri SHEPARD MEDICARE [id number]- [id number] 2019 00:00:00 [facility] Problems Condition Name Condition Details Condition Category Status Onset Date Resolution Date Last Treatment Date Treating Clinician Comments Source Coronary artery disease involving [facility] coronary maria guadalupe ry Coronary artery disease involving [facility] coronary artery Disease Active 2020-05-15 00:00:00 [facility] SOB (shortness of breath) on exertion SOB (shortness of brittanie th) on exertion Disease Active 2020-05-15 00:00:00 [facility] [place] macroglobulinemia [facility] macroglobulinemia Disease Active 2020-05-15 00:00:00 [facility] Neutropenia, drug-induced (HCC)-improved Neutropenia, drug-induced (HCC)-improved Disease Active 2020-05-15 00:00:00 [facility] Pedal edema Pedal edema Disease Active 2020-05-15 00:00:00 [facility] Pulmonary emboli Pulmonary emboli Disease Active 2020 00:00:00 [facility] UNK UNK Active 01/28/2020 [facility] Active 2020-01-28 00:00:00 2020-02-03 09:07:00 [facility] CELLULITIS CELL ULITIS Active 10/09/2019 [facility] Active 2019-10-09 00:00:00 2019-10-09 12:22:00 [facility] LYMPHOMA LYMP SILVER Active 10/09/2019 [facility] Active 2019-10-09 00:00:00 2019-10-10 06:24:00 Maxine Barnett Backache (finding) Back ache (finding) Active Problem 02/05/2020 [facility] Problem Active 2 21:41:44 Maxine Barnett Coronary arteriosclerosis (disorder) Coronary arteriosclerosis (disorder) Active Problem 02/05/2020 [facility] Problem Active 2020-02-05 21:41:44 [facility] Sleep apnea (finding) Slee p apnea (finding) Active Problem 02/05/2020 [facility] Problem Active 2020-02-05 21:41:44 Maxine Barnett NON-HODGKIN LYMPHOMA, UNSPECIFIED, UNSPE NON-HODGKIN LYMPHOMA, UNSPECIFIED, UNSPE Active [facility] Diagnosis Active 2019-10-10 06:24:00 Maxine Barnett Allergies, Adverse Reactions, Alerts Allergy Name Allergy Type Status Severity Reaction(s) Onset Date Inacti ve Date Treating Clinician Comments Source No Known Allergies DA Active U 2020-02-10 00:00:00 [facility] No Known Allergies DA Active U 2020-01-09 00:00:00 [facility] No Known Allergies DA Active U 2019-12-02 00:00:00 [facility] No Known Allergies DA Active U 2019-09-17 00:00:00 [facility] No Known Allergies DA Active U 2019-09-16 00:00:00 [facility] No Known Allergies DA Active U 2018-04-03 00:00:00 [facility] Social History Social Habit Start Date Stop Date Quantity Comments Source History SDOH Alcohol Std Drinks [facility] History SDOH Alcohol Binge [facility] Sex Assigned At [facility] Tobacco use and exposure 2020-05-15 00:00:00 2020-05-15 00:00:00 Neve r used [facility] Alcohol intake 2020-05-15 00:00:00 2020-05-15 00:00:00 Current non-drinker of alcohol (finding) [facility] Jime r History SDOH Alcohol Frequency 2020 00:00:00 2020 00:00:0 0 1 [facility] Social History 2020-01-29 19:14:57 2020-01-29 19:14:57 Maxnie Barnett Smoking Status Start Date Stop Date Source Never smoker [facility] Medications Ordered Medication Name Filled Medication Name Start Date Stop Da te Current Medication? Ordering Clinician Indication Dosage Frequency Signature (SIG) Comments Components Source niacin 500 MG tablet 2020-05-23 01:59:26 Yes 500mg Take 500 mg by mouth daily with breakfast. [facility] simvastatin (ZOCOR) 80 MG tablet 2020-05-23 01:59:26 Yes 80mg QD Take 80 mg by mouth nightly. [facility] b complex vitamins capsule 2020-05-23 01:59:26 Yes 1{capsule} QD Take 1 capsule by mouth daily. [facility] cholecalciferol, vitamin D3, (VITAMIN D3) 125 mcg (5,000 uni t) Tab 2020-05-23 01:59:26 Yes 5000U QD Take 5,000 Units by mouth arleth ly. [facility] azelastine (ASTELIN) 137 mcg (0.1 %) nasal spray 2020-05-23 01:59:26 Yes 1{spray} Q.5D 1 spray by Nasal rou te 2 (two) times daily Use in each nostril as directed . [facility] furosemide (LASIX) 20 MG tablet 2020-05-22 10:09:25 00:00:00 No 20mg Q.5D Take 20 mg by mouth 2 (two) times daily. [facility] carvediloL (COREG) 25 MG tablet 2020-05-22 10:07:35 00:00:00 No 25mg Take 25 mg by mouth 2 (two) times daily with br eakfast and dinner. [facility] lisinopriL (PRINIVIL,ZESTRIL) 10 MG tablet 05-22 10:07:35 2020-05-22 00:00:00 No 10mg QD Take 10 mg by mouth daily. [facility] doxazosin (CARDURA) 2 MG tablet 2020-05-22 09:11:35 00:00:00 No 2mg QD Take 2 mg by mouth nightly. [facility] prasugreL (EFFIENT) 10 mg Tab tablet 2020-05-22 06:38: 48 2020-05-22 00:00:00 No 10mg QD Take 10 mg by mouth daily. [facility] aspirin 325 MG tablet 2020-05-22 06:38:48 2020-05-22 00:00:00 No 325mg QD Take 325 mg by mouth daily. [facility] banana [id number]-[id number]. (BANATROL PLUS) PwPk 2019-08 00:00:00 Yes 1{packet} Q.5D Take 1 packet by mouth 2 (two) times arleth ly. [facility] ketoconazole (NIZORAL) 2 % cream 2020-05-22 00:00:00 05-22 23:59:00 Yes Q.5D Apply topically 2 (two) times daily. [facility] tamsulosin (FLOMAX) 0.4 mg Cap 24 hr capsule 00:00:00 2020-08-20 23:59:00 Yes .4mg QD Take 1 capsule (0.4 mg total) by mouth daily for [address] [facility] enoxaparin (LOVENOX) 40 mg/0.4 mL Syrg 2 00:00:00 2020-08-20 23:59:00 Yes 40mg QD Inject 0.4 mLs (40 m g total) subcutaneously daily for 90 days. [facility] Cent[facility] r carvediloL (COREG) 6.25 MG tablet 2020-05-22 00:00:00 2019 23:59:00 Yes 25mg Take 4 tablets ( 25 mg total) by mouth 2 (two) times daily with breakfast and dinner for 90 days. [facility] furosemide (LASIX) 20 MG tablet 2020-05-22 00:00:00 23:59:00 Yes 40mg QD Take 2 tablets (40 mg total) by mouth daily for 90 days. [facility] allopurinoL (ZYLOPRIM) 100 MG tablet 2020-05-22 00:00: 00 2020-08-20 23:59:00 Yes 100mg QD Take 1 tablet (100 mg total) by mouth da eliane for 90 days. [facility] loperamide (IMODIUM) 2 mg capsule 2020-05-22 00:00:00 2019 23:59:00 No 2mg Take 1 capsule ( 2 mg total) by mouth 4 (four) times daily as needed for Diarrhea for up to 10 days. [facility] cefdinir (OMNICEF) 300 MG capsule 2020-05-22 00:00:00 2019 23:59:00 No 300mg Take 1 capsule ( 300 mg total) by mouth every 12 (twelve) hours for [address] [facility] furosemide (LASIX) 20 MG tablet 2020-05-22 00:00:00 00:00:00 No 40mg QD Take 2 tablets (40 mg total) by mouth daily. [facility] allopurinoL (ZYLOPRIM) 100 MG tablet 2020-05-22 00:00: 00 2020-05-22 00:00:00 No 100mg QD Take 1 tablet (100 mg total) by mouth da eliane for 90 days. [facility] ondansetron (ANES) 2020-02-03 17:29:00 No Route: IV, Drug form: INJ, ONCE, Stop date: 02/03/20 12:29:00 CDT nathan Barnett Docusate Sodium 100 MG Oral Capsule [Colace] 2020-02-03 17:21:00 Yes 100 mg = 1 cap, PO, BID, PRN Constipatio n, # 20 cap, 0 Refill(s), Pharmacy: [facility]/pharmacy #[id number], 180.34, cm, 01/29/20 14:01:00 CDT, Height, 96.818, kg, 01/29/20 14:01:00 CDT, Weight [facility] Acetaminophen 300 MG / Codeine Phosphate 30 MG Oral Tablet [Tylenol with Codeine #3] 2020-02-03 17:21:00 Yes 1 tab, PO, Q6H, PRN pain, X 7 day, # 28 tab, 0 Refill(s), Pharmacy: [facility]/pharmacy #[id number], 180.34, cm, 01/29/20 14:01:00 CDT, Height, 96.818, kg, 01/29/20 14:01:00 CDT, Weight Maxine Barnett ceFAZolin (ANES) 2020-02-03 17:17:00 No Route: IV, Drug form: INJ, ONCE, Stop date: 02/03/20 12:17:00 CDT Luz sawyerriizaiah Barnett lidocaine (ANES) 2020-02-03 17:17:00 No Route: IV, Drug form: INJ, ONCE, Stop date: 02/03/20 12:17:00 [facility] propofol (ANES) 2020-02-03 17:17:00 No Route: IV, Drug form: INJ, ONCE, Stop date: 02/03/20 12:17:00 CDT [facility] fentaNYL (ANES) 2020-02-03 17:02:00 No Route: IV, Drug form: INJ, ONCE, Stop date: 02/03/20 12:02:00 CDT Luz Barnett Lactated Ringers Injection IV (ANES) 1000 mL 2020-02-03 16:25:00 No Route: IV, Total Volume: 1,000, Start date: 02/03/20 11:25:00 CDT, Stop date: 02/03/20 12:25:00 CDT [facility] Calcium Chloride 0.0014 MEQ/ML / Potassi um Chloride 0.004 MEQ/ML / Sodium Chloride 0.103 MEQ/ML / Sodium Lactate 0.028 MEQ/ML Injectable Solution 2020-02-03 16:00:00 No 1,000 mL, Infuse Over: 1 hr, Route: IV, PRE OP, Dosing Weight 96.818 kg, Start date: 02/03/20 11:00:00 CDT, Duration: 1 doses or times, [facility] Calcium Chloride 0.0014 MEQ/ML / Potassi um Chloride 0.004 MEQ/ML / Sodium Chloride 0.103 MEQ/ML / Sodium Lactate 0.028 MEQ/ML Injectable Solution 2020-02-03 15:38:00 No 1,000 mL, Rate: 75 ml/hr, Infuse over: 13.3 hr, Route: IV, Dosing Weight 96.818 kg, Total Volume: 1,000, Start date: 02/03/20 10:38:00 CDT, Duration: 30 day, Stop date: 03/04/20 10:37:00 CDT, 2.22, m2 Maxine Barnett Bumex 2019-10-12 15:00:00 No Notes: (Same A s: Bumex) Maxine Barnett spironolactone 25 mg oral tablet 2019-10-11 20:45:00 Yes 25 mg = 1 tab, PO, BID, 0 Refill(s) Maxine Styles nn Clotrimazole 10 MG/ML Topical Cream 2019-10-11 20:45:00 Yes 1 appl, TOP, BID, X 14 day, # 60 gm, 1 Refill(s), Pharmacy: [facility]/pharmacy #[id number] Maxine Moultonann 24 HR Niacin 500 MG Extended Release Tablet [Niaspan] 2019-10-11 03:00:00 No Notes: (Same as : Niaspan) "Do Not Crush" Non-Formulary Item With food. Maxine Anibal Simvastatin 2019-10-11 03:00:00 No Notes: ( Same as: Zocor) Maxine Moultonann Spironolactone 2019-10-10 23:00:00 No Notes: (Same As: Aldactone) Hazardous Drug Group 2:Non-antineoplastic Hazardous Drug -- Refer to safe handling procedure PPE [id number] Vt gregorio Barnett albumin human 25% intravenous solution 2019-10-10 22:00:00 No Notes: Lot #: Mfg: (Same as: Plasbumin-25) "blood product derivative" WASTE: F/P - Red; E -Red MEDICATION WASTE Product Size: 25 gm Product Wasted: ___ gm Vt gregorio Moultonann Bumex 2019-10-10 22:00:00 No Notes: (Same A s: Bumex) Maxine Moultonann carvedilol 2019-10-10 15:00:00 No Notes: Give with food. (Same As: Coreg) Maxine Anibal Doxazosin 2019-10-10 15:00:00 No Notes: (Sa me as: Cardura) Maxine Barnett Furosemide 20 MG Oral Tablet 2019-10-10 15:00:00 No Notes: (Same as: Lasix) May cause GI upset. Give with food or milk. Maxine Barnett Lisinopril 2019-10-10 15:00:00 No Notes: (Same as: Prinivil, Zestril) Maxine Barnett Clotrimazole 10 MG/ML Topical Cream 2019-10-10 15:00:00 No Notes: For external use only. (Same As: Lotrimin AF, Mycelex) Maxine Barnett rn pls chela pt's own Azelastine to pharmacy for label 2019-10-10 14:00:00 No rn juan nguyeng pt' s own Azelastine to pharmacy for label, reminder, Drug form: MISC, Route: MISC, QSHIFT, 10/10/19 8:00:00 [employer], Duration: 30 day, Stop date: 11/09/19 0:00:00 CDT, Jackelyn sharma Azelastine hydrochloride 0.137 MG/ACTUAT Metered Dose Nasal [place] 2019-10-10 05:21:00 No 1 spray, R oute: INHALER, Drug Form: SPRY, Dosing Weight 103.636, kg, BID, PRN Arrhythmias, Start date: 10/09/19 23:21:00 [employer], Duration: 30 day, Stop date: 11/08/19 23:20:00 CDT Maxine Barnett carvedilol 25 mg oral tablet 2019-10-09 22:23:00 Yes 25 mg = 1 tab, PO, BID, 0 Refill(s) Maxine Barnett prasugrel 10 MG Oral Tablet [Effient] 2019-10-09 22:23:00 Y es 10 mg = 1 tab, PO, Daily, 0 Refill(s) Maxine Barnett Aspirin 2019-10-09 22:23:00 Yes 81 mg, PO, D aily, 0 Refill(s) Maxine Barnett lisinopril 10 mg oral tablet 2019-10-09 22:23:00 Yes 10 mg = 1 tab, PO, Daily, 0 Refill(s) Maxine Barnett 24 HR Niacin 500 MG Extended Release Tablet [Niaspan] 2019-10-09 22:23:00 Yes 500 mg = 1 tab, PO, Bedtime, 0 Refill(s) Maxine Barnett simvastatin 80 mg oral tablet 2019-10-09 22:23:00 Yes 80 mg = 1 tab, PO, Bedtime, 0 Refill(s) Maxine Styles nn Vitamin B Complex oral capsule 2019-10-09 22:23:00 Yes 1 cap, PO, Daily, 0 Refill(s) Maxine Barnett Vitamin D3 5000 intl units oral capsule 2019-10-09 22:23:00 Yes 5,000 IntlUnit = 1 cap, PO, Daily, # 30 cap, 1 Refill(s) Maxine Barnett Multi Vitamin+ 2019-10-09 22:23:00 Yes 1 tab, PO, Daily, 0 Refill(s) Maxine Barnett Hydrochlorothiazide 2019-10-09 22:23:00 No PO, Daily, 0 Refill(s) Maxine Barnett Furosemide 20 MG Oral Tablet 2019-10-09 22:23:00 Yes 20 mg = 1 tab, PO, Daily, 0 Refill(s) Maxine Barnett testosterone cypionate 2019-10-09 22:23:00 Yes IM, q4wk, 0 Refill(s) Maxine Barnett azelastine nasal 137 mcg/inh spray 2019-10-09 22:23:00 Yes 137 microgram =, INHALER, BID, PRN Congestion | 1-2 sprays, # 1 ea, 0 Refill(s) Maxine Barnett doxazosin 2 mg oral tablet 2019-10-09 22:23:00 Yes 2 mg = 1 tab, PO, Daily, 0 Refill(s) Maxine Barnett Omnipaque 300 injectable solution 2019-10-09 22:00:00 No Notes: (Same as:Omnipaque 300). WASTE: F/P - Black; E - Municipal Trash [employer] Maxine Barnett Vital Signs Vital Name Observation Time Observation Value Comments Source WEIGHT 2020-07-05 08:30:00 69.9 kg HEIGHT 2020-06-29 09:00:00 170 cm Systolic blood pressure 2020-05-22 19:47:00 139 mm[Hg] [facility] Diastolic blood pressure 2020-05-22 19:47:00 71 mm[Hg] [facility] Heart rate 2020-05-22 19:47:00 72 /min [facility] Body temperature 2020-05-22 19:47:00 36.78 Sherri [facility] Respiratory rate 2020-05-22 19:47:00 18 /min [facility] Oxygen saturation in Arterial blood by Pulse oximetry 2019-08 19:47:00 96 [facility] 2020-05-20 06:00:00 96.616 kg [facility] BMI 2020-05-20 06:00:00 30.56 kg/m2 [facility] Body height 2020-05-14 03:18:00 177.8 cm [facility] Systolic (mm Hg) 2020-02-03 18:45:00 [facility] Diastolic (mm Hg) 2020-02-03 18:45:00 [facility] Systolic (mm Hg) 2020-02-03 18:30:00 [facility] Diastolic (mm Hg) 2020-02-03 18:30:00 [facility] Systolic (mm Hg) 2020-02-03 18:15:00 [facility] Diastolic (mm Hg) 2020-02-03 18:15:00 [facility] Respitory Rate 2020-02-03 17:55:00 [facility] Respitory Rate 2020-02-03 17:45:00 [facility] Respitory Rate 2020-02-03 17:30:00 [facility] Height 2020-01-29 19:01:00 180.34 cm [facility] Weight 2020-01-29 19:01:00 [facility] BMI Calculated 2020-01-29 19:01:00 [facility] Systolic (mm Hg) 2020-01-28 15:25:00 [facility] Diastolic (mm Hg) 2020-01-28 15:25:00 [facility] Heart Rate 2020-01-28 15:25:00 [facility] Temperature Oral (F) 2020-01-28 15:25:00 98.6 F [facility] Height 2020-01-28 15:25:00 180.34 cm [facility] Weight 2020-01-28 15:25:00 [facility] BMI Calculated 2020-01-28 15:25:00 [facility] Temperature Oral (F) 2019-10-11 21:53:00 97.9 F [facility] Heart Rate 2019-10-11 21:53:00 [facility] Systolic (mm Hg) 2019-10-11 21:53:00 [facility] Diastolic (mm Hg) 2019-10-11 21:53:00 [facility] Temperature Oral (F) 2019-10-11 18:08:00 98 F [facility] Heart Rate 2019-10-11 18:08:00 [facility] Systolic (mm Hg) 2019-10-11 18:08:00 [facility] Diastolic (mm Hg) 2019-10-11 18:08:00 [facility] Temperature Oral (F) 2019-10-11 14:27:00 98.2 F [facility] Heart Rate 2019-10-11 14:27:00 [facility] Systolic (mm Hg) 2019-10-11 14:27:00 [facility] Diastolic (mm Hg) 2019-10-11 14:27:00 [facility] Height 2019-10-10 01:21:00 180.34 cm [facility] Weight 2019-10-10 01:21:00 [facility] BMI Calculated 2019-10-10 01:21:00 [facility] Height 2019-10-09 22:10:00 180.34 cm [facility] Weight 2019-10-09 22:10:00 [facility] BMI Calculated 2019-10-09 22:10:00 [facility] Procedures Procedure Date / Time Performed Performing Clinician [facility] e BASIC METABOLIC PANEL (7) 2020-05-22 05:08:00 Luz Marcial [facility] MAGNESIUM 2020-05-22 05:08:00 Mirlande Marcial [facility] PHOSPHORUS 2020-05-22 05:08:00 Mirlande Marcial [facility] CBC W/PLT COUNT & AUTO DIFFERENTIAL 2020-05-22 05:08:00 Mirlande Ardon [facility] SARS-COV2/RT-PCR ([facility] REF [facility]) 2020-05-21 06:11:00 Janine Hall [facility] BASIC METABOLIC PANEL (7) 2020-05-21 06:11:00 Luz Marcial [facility] MAGNESIUM 2020-05-21 06:11:00 Mirlande Marcial [facility] PHOSPHORUS 2020-05-21 06:11:00 Mirlande Marcial [facility] CBC W/PLT COUNT & AUTO DIFFERENTIAL 2020-05-21 06:11:00 Mirlande Ardon [facility] URINE CULTURE 2020-05-20 12:36:00 Mirlande Marcial [facility] BASIC METABOLIC PANEL (7) 2020-05-20 11:51:00 Luz Marcial [facility] MAGNESIUM 2020-05-20 11:51:00 Mirlande Marcial [facility] PHOSPHORUS 2020-05-20 11:51:00 Mirlande Marcial [facility] CBC W/PLT COUNT & AUTO DIFFERENTIAL 2020-05-20 11:51:00 Mirlande Ardon [facility] STOOL CULTURE + SHIGA TOXIN 2020-05-20 11:46:00 Mirlande Marcial [facility] SHIGA TOXIN SCREEN 2020-05-20 11:46:00 Mirlande Marcial [facility] STOOL PATH CHARGE 2020-05-20 11:46:00 Mirlande Marcial [facility] C. DIFFICILE GDH TOXIN 2020-05-20 11:44:00 Mirlande Marcial [facility] URINALYSIS W/ MICROSCOPIC 2020-05-20 03:23:00 Philly Garcia [facility] CT ABDOMEN/PELVIS WITHOUT IV CONTRAST 2020-05-20 02:50:00 Mirlande Ott [facility] US RENAL COMPLETE 2020-05-19 17:40:00 David Salgado Mirlande Joynivia sargent [facility] KAPPA / LAMBDA LIGHT CHAINS, SERUM 2020-05-19 16:23:00 Luz Garcia [facility] BASIC METABOLIC PANEL (7) 2020-05-19 12:22:00 Luz Marcial [facility] MAGNESIUM 2020-05-19 12:22:00 Mirlande Marcial [facility] BASIC METABOLIC PANEL (7) 2020-05-19 05:57:00 Luz Marcial [facility] MAGNESIUM 2020-05-19 05:57:00 Mirlande Marcial [facility] CBC W/PLT COUNT & AUTO DIFFERENTIAL 2020-05-19 05:57:00 Mirlande Ardon [facility] CT BRAIN WITHOUT IV CONTRAST 2020-05-19 01:22:00 Mirlande Marcial [facility] APTT 2020-05-18 14:42:00 Mirlande Marcial [facility] APTT 2020-05-18 13:17:00 Isaiah Marciala Bro [facility] APTT 2020-05-18 06:04:00 aDvid Salgado Mirlande Bro [facility] APTT 2020-05-18 04:23:00 Isaiah Marcialrivka Joylinnette [facility] APTT 2020-05-18 02:07:00 Mirlande Marcial [facility] CBC W/PLT COUNT & AUTO DIFFERENTIAL 2020-05-18 01:16:00 Mirlande Ardon [facility] BASIC METABOLIC PANEL (7) 2020-05-18 01:15:00 Luz Marcial [facility] MAGNESIUM 2020-05-18 01:15:00 David Morenocain [facility] TRANSFUSION SERVICE REPORT - SCAN 2020-05-17 18:00:42 Provid er, Default Scanning [facility] PERIPHERAL BLOOD SMEAR - HOLD ONLY 2020-05-17 17:36:00 Annelise Mac [facility] APTT 2020-05-17 17:36:00 Michellekristi Salgado Mirland[facility] BASIC METABOLIC PANEL (7) 2020-05-17 14:28:00 [facility] MAGNESIUM 2020-05-17 14:28:00 [facility] Naomi [facility] CBC W/PLT COUNT & AUTO DIFFERENTIAL 2020-05-17 14:28:00 Shanta Salgado [facility] PREPARE LEUKO-REDUCED PLATELETS 2020-05-16 23:54:00 David Josue ieh [facility] TRANSFUSION SERVICE REPORT - SCAN 2020-05-16 18:01:04 Provid er, Default Scanning [facility] URINE PROTEIN ELECTROPHORESIS, 24 HOUR 2020-05-16 14:56:00 Annelise Velez [facility] BASIC METABOLIC PANEL (7) 2020-05-16 06:11:00 Susan Barrios [facility] CBC W/PLT COUNT & AUTO DIFFERENTIAL 2020-05-16 06:11:00 Brayden Ramirez [facility] TRANSFUSION SERVICE REPORT - SCAN 2020-05-15 18:01:49 Provid er, Default Scanning [facility] REPORT OF PROCEDURE - ENDOSCOPY SCAN 2020-05-15 09:53:47 Pro vider, Default Scanning [facility] BASIC METABOLIC PANEL (7) 2020-05-15 04:51:00 Susan Barrios [facility] B-TYPE NATRIURETIC FACTOR (BNP) 2020-05-15 04:51:00 Saman Ryan [facility] VITAMIN B12 AND FOLATE 2020-05-15 04:51:00 Seun Marcano [facility] CBC W/PLT COUNT & AUTO DIFFERENTIAL 2020-05-15 04:51:00 Brayden Ramirez [facility] TRANSFUSE LEUKO-REDUCED PLATELETS 2020-05-15 03:48:41 [facility] ED ECG INTERPRETATION 2020-05-15 02:12:49 Janine Main [facility] TRANSFUSE LEUKO-REDUCED PLATELETS 2020-05-15 01:19:59 Shiekchristianne Salgado, [facility]lande [facility] ABORH, MANUAL 2020-05-14 20:07:00 Trish Cannon [facility] TYPE AND SCREEN, AUTOMATED 2020-05-14 18:41:00 [facility] Naomi, Mirlande [facility] VENOUS DOPPLER LEGS BILATERAL 2020-05-14 15:00:47 [facility] Andreas hMirlande [facility] 2D ECHO W/ DOPPLER (CW/PW/COLOR) 2020-05-14 14:15:30 Mikal Ryan [facility] FIBRINOGEN 2020-05-14 13:07:00 Annelise Mac [facility] HAPTOGLOBIN 2020-05-14 13:07:00 Annelise Mac [facility] B-TYPE NATRIURETIC FACTOR (BNP) 2020-05-14 10:05:00 Luis Hanna [facility] TROPONIN I 2020-05-14 10:04:00 Bret Hanna [facility] BASIC METABOLIC PANEL (7) 2020-05-14 05:07:00 Susan Barrios [facility] CBC W/PLT COUNT & AUTO DIFFERENTIAL 2020-05-14 05:07:00 Brayden Ramirez [facility] SARS-COV2/RT-PCR ([facility] REF [facility]) 2020-05-14 00:27:00 Janine Hall [facility] CT CHEST PE TEST DESIGN 2020 21:27:00 Darshana Main [facility] LACTIC ACID, VENOUS 2020 19:34:00 Janine Main [facility] XR CHEST 1 VIEW PORTABLE/BEDSIDE 2020 17:58:00 Ruy Samaniego ph [facility] BLOOD CULTURE 2020 17:52:00 Jainne Main [facility] LACTIC ACID, VENOUS 2020 17:52:00 Janine Main [facility] COMPREHENSIVE METABOLIC PANEL 2020 17:52:00 Janine Main [facility] PROTHROMBIN TIME/INR 2020 17:52:00 Janine Main [facility] APTT 2020 17:52:00 Janine Main [facility] CBC W/PLT COUNT & AUTO DIFFERENTIAL 2020 17:52:00 Janine Banerjee [facility] ECG 12-LEAD 2020 17:24:39 Unknown, [facility] Cardiac catheterization<sup>1</sup> [facility] Epidural steroid injection [facility] Plan of Care Planned Activity Planned Date Details Comments Source Future Scheduled Test 2020-04-21 00:00:00 INFLUENZA VACCINE (#1) [code = INFLUENZA VACCINE (#1)] [facility] Future Scheduled Test 2019-08-21 00:00:00 Medicare IPPE (WEL COME TO MEDICARE) [code = Medicare IPPE (WELCOME TO MEDICARE)] [facility] Future Scheduled Test 2013 00:00:00 PNEUMOCOCCAL 65+ Y RS (1 of 1 - [id number] PCV13) [code = PNEUMOCOCCAL 65+ YRS (1 of 1 - [id number] PCV13)] [facility] [place] Test 1950 00:00:00 Screening for luc gnant neoplasm of colon (procedure) [code = 641593076] [facility] Encounters Start Date/Time End Date/Time Encounter Type Admission Type [facility] Care Department Encounter ID Source 2020-06-30 12:02:04 Inpatient ANISH CASPER MDA MDA [id number] [facility] 2020-06-30 12:01:59 Inpatient ANISH CASPER MDA MDA [id number] [facility] 2020-06-30 11:49:15 Outpatient SYSTEM, PROVIDER ALANIS MDA [id number] [facility] 2020-05-27 15:36:54 Outpatient SYSTEM, PROVIDER ALANIS MDA [id number] [facility] 2020-07-17 08:46:00 2020-07-17 23:59:00 Outpatient CHI JACKSON MDA MDA [id number] [facility] 2020-07-10 13:03:00 2020-07-10 18:44:00 Emergency ER LATA LEDBETTER DA Emergency [id number] [facility] 2020-07-10 11:03:04 2020-07-10 12:48:48 Outpatient ANISH BABCOCK MDA MDA [id number] [facility] 2020-07-08 10:33:06 2020-07-08 10:41:48 Outpatient EL JEANETH STEVENS MDA MDA [id number] [facility] 2020-06-25 14:43:00 2020-07-05 11:29:00 Inpatient ER ROGER VELIA ALANIS Lymphoma/Mye [id number] [facility] 2020-07-01 10:36:00 2020-07-01 11:13:34 Inpatient ROGER VELIA ALANIS MDA [id number] [facility] 2020-06-30 10:57:35 2020-06-30 11:23:06 Inpatient ROGER VELIA ALANIS MDA [id number] [facility] 2020-06-26 16:42:33 2020-06-26 17:04:25 Inpatient ANISH CASPER MDA [id number] [facility] 2020-06-26 16:28:04 2020-06-26 16:32:58 Inpatient KYLEE STEVENS MDA MDA [id number] [facility] 2020-06-26 11:30:51 2020-06-26 11:52:48 Inpatient ANISH CASPER DA MDA [id number] [facility] 2020-06-25 13:54:13 2020-06-25 15:06:27 Outpatient NNEKA HERR MDA MDA [id number] [facility] 2020-06-25 13:47:31 2020-06-25 13:51:30 Outpatient MARIKA GARCIA MDA MDA [id number] [facility] 2020-06-24 03:21:58 2020-06-24 03:21:58 Outpatient BRESALMARKIA GIRON MDA MDA [id number] [facility] 2020-06-24 03:21:57 2020-06-24 03:21:57 Outpatient BRESALMARIKA GIRON MDA MDA [id number] [facility] 2020-06-24 03:21:52 2020-06-24 03:21:52 Outpatient BRESALMARIKA GIRON MDA MDA [id number] [facility] 2020-06-24 03:21:52 2020-06-24 03:21:52 Outpatient BRESALMARIKA GIRON MDA MDA [id number] [facility] 2020-06-24 03:21:51 2020-06-24 03:21:51 Outpatient BREMARIKA CANSECO MDA MDA [id number] [facility] 2020-06-23 11:21:37 2020-06-23 11:21:37 Outpatient MARIKA GARCIA MDA MDA [id number] [facility] 2020-05-04 15:22:35 2020-05-04 15:52:35 Office Visit Stric Mikal gallegos [facility] [id number] 2020-02-03 09:07:00 2020-02-03 14:00:00 Outpatient Mervin ZuritaSE [facility] [id number] 2020-02-03 09:07:00 2020-02-03 09:07:00 Outpatient MHSE [facility] [address] [place] [address] 2020-01-28 10:15:00 2020-01-28 23:59:59 Outpatient Mervin Zurita [facility] [id number] 2019-10-09 12:57:00 2019-10-11 20:00:00 Outpatient Marlen Canas [facility] [id number] 2019-06-07 14:03:04 2019-06-07 15:34:50 Office Visit Stric Mikal gallegos [facility] [id number] Results Test Description Test Time Test Comments Results Result Comments Source CHEST 2 VIEWS 2020-07-21 10:49:00 [facility] 1950 Sex: [place] [address] Patient Name: PIERRE PHILLIPS MR #: [id number] : 1950 Age/Sex: 70/M Req #: [id number] Adm Physician: Ordered by: JJ LOMAS MD Report #: [id number] Location: OR Room/Bed: Procedure: [id number] DX/CHEST 2 VIEWS Exam Date: 07/21/20 Exam Time: 1034 REPORT STATUS: Signed EXAMINATION: CHEST 2 VIEWS INDICATION: Pre-operative COMPARISON: Chest radiograph 02/11/2019 FINDINGS: LINES/TUBES:Right chest port with tip in the SVC. LUNGS:The lungs are well-inflated. No focal consolidation or pulmonary edema. PLEURA:No pleural effusion or pneumothorax. MEDIASTINUM:The cardiomediastinal silhouette appears normal in size and shape. Atherosclerotic calcifications of the thoracic aorta. BONES/SOFT TISSUES:No acute osseous injury. ABDOMEN:No free air under the diaphragm. IMPRESSION: No focal pneumonia or pulmonary edema. Signed by: Bianca Oscar MD on 07/21/2020 10:50 AM Dictated By: BIANCA OSCAR MD 1050 Transcribed By: LAURA on 07/21/20 1050 COPY TO: JJ LOMAS MD Stool culture + Shiga toxin 2020-05-23 12:57:00 Test Item Result (test code = 6463-4) No Salmonella, Shigella or Campyloba cter isolated [facility] SHIGA [id number] 12:57:00* Test Item Value Reference Range Interpretation Comments CULTURE (BEAKER) (test code = 1095) No Salmonella, Michelle gella or Campylobacter isolated [place] / lambda light chains, [id number] 11:01:00* Test Item Value Reference Range Interpretation Comments [place] Lt Chain,Free (test code = 53989-0) 9 mg/L 3.3-19.4 Lambda Lt Chain,Free (test code = 73721-1) 2.7 mg/L 5.7-26.3 L [place]/Lambda,Free (test code = 8177386) 3.33 0.26-1.65 H Free kappa/lambda ratio in serum of normal individuals is 0.26-1.65. Excessproduction of free kappa or lambda chains can alter this ratio. Monoclonalfree light chains are found in serum of patients with multiple myeloma,Waldenstrom's macroglobulinemia, mu-heavy chain disease, primary amyloidosis,light chain deposition disease, monoclonal gammopathy of undeterminedsignificance, and lymphoproliferative disorders. Measurement of free lightchain concentration in serum is useful for diagnosis, prognosis, monitoringdisease activity and following response to therapy of these disorders. REGINALDO (test code = REGINALDO) Performing Lab [facility] [address] [place] [id number] Yefri Santo MD, PhD, VARSHA Lab Interpretation (test code = 74291-3) [facility] [id number] 09:11:00* Test Item Value Reference Range Interpretation Comments Result (test code = 6463-4) See comment REGINALDO (test code = REGINALDO) <10,000 col/mL Gram Negative [facility] [id number] 09:11:00* Test Item Value Reference Range Interpretation Comments CULTURE (BEAKER) (test code = 1095) See comment <10,000 col/mL Gram Negative RodSTOOL PATH [id number] 09:04:00* Test Item Value Reference Range Interpretation Comments Pathogen exam charged (test code = 2381) [facility] [id number] 09:04:00* Test Item Value Reference Range Interpretation Comments PATHOGEN EXAM CHARGED (BEAKER) (test code = 2381) Done Basic Metabolic [id number] 06:38:00* Test Item Value Reference Range Interpretation Comments Sodium (test code = 2951-2) 132 meq/L 136-145 L Potassium (test code = 2823-3) 3.7 meq/L 3.5-5.1 Specimen slightly hemolyzed Chloride (test code = 2075-0) 98 meq/L 98-107 CO2 (test code = 2028-9) 28 meq/L 22-29 BUN (test code = 3094-0) 12 mg/dL 7-21 Creatinine (test code = 2160-0) 0.71 mg/dL 0.57-1.25 Specimen slightly hemolyzed Glucose (test code = 2345-7) 94 mg/dL 70-105 Calcium (test code = 59529-0) 8.1 mg/dL 8.4-10.2 L EGFR (test code = 83846-3) 109 mL/min/1.73 sq m ESTIMATED GFR IS NOT ACCURATE CREATININE CLEARANCE IN PREDICTING GLOMERULAR FILTRATION RATE. ESTIMATED GFR IS NOT APPLICABLE FOR DIALYSIS PATIENTS. REGINALDO (test code = REGINALDO) Sizing Machine And Drier Operator ID - DANNY M Lab Interpretation (test code = 77951-8) [facility] 06:38:00* Test Item Value Reference Range Interpretation Comments Magnesium (test code = 70784-6) 1.9 mg/dL 1.6-2.6 Specimen slightly hemolyzed REGINALDO (test code = REGINALDO) Sizing Machine And Drier Operator ID - DANNY M Lab Interpretation (test code = 29646-3) Normal [facility]2020-10-02 06:38:00* Test Item Value Reference Range Interpretation Comments Phosphorus (test code = 2777-1) 2.1 mg/dL 2.3-4.7 L Specimen slightly hemolyzed REGINALDO (test code = REGINALDO) Sizing Machine And Drier Operator ID - DANNY M Lab Interpretation (test code = 84623-4) Abnormal [facility]MAGNESIUM2020-10-02 06:38:00* Test Item Value Reference Range Interpretation Comments MAGNESIUM (BEAKER) (test code = 627) 1.9 mg/dL 1.6-2.6 Specimen slightly hemolyzed Sizing Machine And Drier Operator ID - DANNY [id number] 06:38:00* Test Item Value Reference Range Interpretation Comments PHOSPHORUS (BEAKER) (test code = 604) 2.1 mg/dL 2.3-4.7 L Specimen slightly hemolyzed Sizing Machine And Drier Operator ID - DANNY MBASIC METABOLIC [id number] 06:38:00* Test Item Value Reference Range Interpretation Comments SODIUM (BEAKER) (test code = 381) 132 meq/L 136-145 L POTASSIUM (BEAKER) (test code = 379) 3.7 meq/L 3.5-5.1 Specimen slightly hemolyzed CHLORIDE (BEAKER) (test code = 382) 98 meq/L 98-107 CO2 (BEAKER) (test code = 355) 28 meq/L 22-29 BLOOD UREA NITROGEN (BEAKER) (test code = 354) 12 mg/dL 7-21 CREATININE (BEAKER) (test code = 358) 0.71 mg/dL 0.57-1.25 Specimen slightly hemolyzed GLUCOSE RANDOM (BEAKER) (test code = 652) 94 mg/dL 70-105 CALCIUM (BEAKER) (test code = 697) 8.1 mg/dL 8.4-10.2 L EGFR (BEAKER) (test code = 1092) 109 mL/min/1.73 sq m ESTIMATED GFR IS NOT ACCURATE CREATININE CLEARANCE IN PREDICTING GLOMERULAR FILTRATION RATE. ESTIMATED GFR IS NOT APPLICABLE FOR DIALYSIS PATIENTS. Sizing Machine And Drier Operator ID - DANNY MCBC with platelet count + automated [id number] 06:00:00 * Test Item Value Reference Range Interpretation Comments WBC (test code = 6690-2) 3.9 3.5- 10.5 K/L RBC (test code = 789-8) 4.32 4.63- 6.08 M/L L MCHC (test code = 786-4) 33.3 32.3- 36.5 GM/DL L Hematocrit (test code = 4544-3) 34.8 % 40.1-51 L MCV (test code = 787-2) 80.6 fL 79-92.2 MCH (test code = 785-6) 26.9 pg 25.7-32.2 RDW (test code = 788-0) 16.7 % 11.6-14.4 H Platelets (test code = 777-3) 62 150- 450 K/CU MM L MPV (test code = 05432-9) Un able to report due to abnormal Platelet population distribution. nRBC (test code = 413) 0 0- 0 /100 WBC % Neutros (test code = 429) 70 % % Lymphs (test code = 430) 10 % % Monos (test code = 431) 16 % % Eos (test code = 432) 2 % % Baso (test code = 437) 1 % # Neutros (test code = 670) 2.76 1.78- 5.38 K/L # Lymphs (test code = 414) 0.40 1.32- 3.57 K/L L # Monos (test code = 415) 0.64 0.30- 0.82 K/L # Eos (test code = 416) 0.07 0.04- 0.54 K/L # Baso (test code = 417) 0.02 0.01- 0.08 K/L Immature Granulocytes-Relative (test code = 2801) 1 % 0-1 Lab Interpretation (test code = 19889-1) [facility]normal [facility] & AUTO [id number] 06:00:00* Test Item Value Reference Range Interpretation Comments WHITE BLOOD CELL COUNT (BEAKER) (test code = 775) 3.9 K/ L 3.5- 10.5 RED BLOOD CELL COUNT (BEAKER) (test code = 761) 4.32 M/ L 4.63-6 .08 L HEMOGLOBIN (BEAKER) (test code = 410) 11.6 GM/DL 13.7-17.5 L HEMATOCRIT (BEAKER) (test code = 411) 34.8 % 40.1-51.0 L MEAN CORPUSCULAR VOLUME (BEAKER) (test code = 753) 80.6 fL 79. 0-92.2 MEAN CORPUSCULAR HEMOGLOBIN (BEAKER) (test code = 751) 26.9 pg 25.7-32.2 MEAN CORPUSCULAR HEMOGLOBIN CONC (BEAKER) (test code = 752) 33.3 GM/DL 32.3-36.5 RED CELL DISTRIBUTION WIDTH (BEAKER) (test code = 412) 16.7 % 11.6-14.4 H PLATELET COUNT (BEAKER) (test code = 756) 62 K/CU MM 150-450 L MEAN PLATELET VOLUME (BEAKER) (test code = 754) Unable to report due to abnormal Platelet population distribution. NUCLEATED RED BLOOD CELLS (BEAKER) (test code = 413) 0 /100 WBC 0 -0 NEUTROPHILS RELATIVE PERCENT (BEAKER) (test code = 429) 70 % LYMPHOCYTES RELATIVE PERCENT (BEAKER) (test code = 430) 10 % MONOCYTES RELATIVE PERCENT (BEAKER) (test code = 431) 16 % EOSINOPHILS RELATIVE PERCENT (BEAKER) (test code = 432) 2 % BASOPHILS RELATIVE PERCENT (BEAKER) (test code = 437) 1 % NEUTROPHILS ABSOLUTE COUNT (BEAKER) (test code = 670) 2.76 K/ L 1.78-5.38 LYMPHOCYTES ABSOLUTE COUNT (BEAKER) (test code = 414) 0.40 K/ L 1.32-3.57 L MONOCYTES ABSOLUTE COUNT (BEAKER) (test code = 415) 0.64 K/ L 0. 30-0.82 EOSINOPHILS ABSOLUTE COUNT (BEAKER) (test code = 416) 0.07 K/ L 0.04-0.54 BASOPHILS ABSOLUTE COUNT (BEAKER) (test code = 417) 0.02 K/ L 0. 01-0.08 IMMATURE GRANULOCYTES-RELATIVE PERCENT (BEAKER) (test code = 2801) 1 % 0-1 SARS-CoV2/RT-PCR (Asymptomatic ONLY)2020-05-21 19:52:00* Test Item Value Reference Range Interpretation Comments SARS-COV2/RT-PCR (test code = 74102-6) Negative N ot Detected, Negative, See external report for linked test SARS-COV-2 PERFORMING LAB (test code = 53201-8) [facility] REGINALDO (test code = REGINALDO) Negative result for this veronica t determines that SARS-CoV-2 RNA was not present in the specimen above the Limit of Detection (LOD). However, Negative results do not preclude SARS-CoV-2 infection and should not be used as the sole basis for treatment or patient management decisions. Negative results must be combined with clinical observations, patient history, and epidemiological information. A false negative result may occur if a specimen is improperly collected, transported or handled. A false negative result should be considered if patient's recent exposures or clinical presentation indicate that COVID-19 (SARS-CoV-2) is likely and diagnostic tests for other causes of illness are negative. Re-testing should be considered in cases of suspected false negatives. The limit of detection for this assay is 800 copies/mL. This SARS CoV-2 test is a real-time RT-PCR test intended for the qualitative detection of nucleic acid from SARS-CoV-2 in a nasopharyngeal swab specimen collected from individuals suspected of COVID-19 by their healthcare provider. This test has not been Food and Drug Administration (FDA) cleared or approved. This is a modified version of an approved Emergency Use Authorization (EUA) and is in the process of review by the FDA. Once authorized by the FDA, the issued EUA will be effective until the declaration that circumstances exist justifying the authorization of the emergency use of in vitro diagnostic tests for detection and/or diagnosis of COVID-19 is terminated under Section 564(b)(2) of the Act or the EUA is revoked under Section 564(g) of the Act. Fact Sheet for Healthcare Providers:https://www.[employer]/sites/default/files/product/documents/Fact_Shee v_OQ_Glekdstle_Htkn_SPAR-BdG-9.pdf Fact Sheet for Healthcare Patients:https://www.[employer]/sites/default/files/pro duct/documents/Kjjb_Ufcpu_Lzajbpyg_Qhxz_VRGL-YxM-6.pdf Performing Laboratory:[facility] [place] [address] [facility])2020-05-21 19:52:00* Test Item Value Reference Range Interpretation Comments SARS-COV2/RT-PCR (test code = 8817500) Negative N ot Detected, Negative, See external report for linked test SARS-COV-2 PERFORMING LAB (test code = 2163770) [facility] Negative result for this test determines that SARS-CoV-2 RNA was not present in the specimen above the Limit of Detection (LOD). However, Negative results do n ot preclude SARS-CoV-2 infection and should not be used as the sole basis for tr eatment or patient management decisions. Negative results must be combined with clinical observations, patient history, and epidemiological information. A false negative result may occur if a specimen is improperly collected, transported or handled. A false negative result should be considered if patient's recent expo sures or clinical presentation indicate that COVID-19 (SARS-CoV-2) is likely and diagnostic tests for other causes of illness are negative. Re-testing should be considered in cases of suspected false negatives.The limit of detection for this assay is 800 copies/mL.This SARS CoV-2 test is a real-time RT-PCR test intended for the qualitative detection of nucleic acid from SARS-CoV-2 in a nasopharyn geal swab specimen collected from individuals suspected of COVID-19 by their [facility] provider.This test has not been Food and Drug Administration (FDA) clear ed or approved. This is a modified version of an approved Emergency Use Authori zation (EUA) and is in the process of review by the FDA. Once authorized by [facility] FDA, the issued EUA will be effective until the declaration that circumstances exist justifying the authorization of the emergency use of in vitro diagnostic tests for detection and/or diagnosis of COVID-19 is terminated under Section 564 (b)(2) of the Act or the EUA is revoked under Section 564(g) of the Act.Fact She et for Healthcare Providers:https://www.[employer].com/sites/default/files/product/d ocuments/Lufd_Bzfrq_KW_Wdjsxsydw_Gbmf_JBZC-XnY-4.pdfFact Sheet for Healthcare Chandana chris:https://www.[employer]/sites/default/files/product/documents/Fact_Sheet_P kelgetl_Tnvg_ZLUA-YjC-7.pdfPerforming Laboratory:[facility] [address], [place] [address]Nuuzi Toxin [id number] 14:09:00* Test Item Value Reference Range Interpretation Comments Shiga toxin 1 (test code = 15818-4) Not detected Not detected Shiga toxin 2 (test code = 75743-3) Not detected Not detected Lab Interpretation (test code = 90887-1) Normal [facility] [id number] 14:09:00* Test Item Value Reference Range Interpretation Comments SHIGA TOXIN 1 (BEAKER) (test code = 2177) Not detected Not detected SHIGA TOXIN 2 (BEAKER) (test code = 2179) Not detected Not detected [id number] 07:10:00* Test Item Value Reference Range Interpretation Comments PHOSPHORUS (BEAKER) (test code = 604) 2.2 mg/dL 2.3-4.7 L Sizing Machine And Drier Operator ID - [id number] 07:10:00* Test Item Value Reference Range Interpretation Comments MAGNESIUM (BEAKER) (test code = 627) 1.7 mg/dL 1.6-2.6 Sizing Machine And Drier Operator ID - EDASIBASIC METABOLIC [id number] 07:10:00* Test Item Value Reference Range Interpretation Comments SODIUM (BEAKER) (test code = 381) 131 meq/L 136-145 L POTASSIUM (BEAKER) (test code = 379) 3.2 meq/L 3.5-5.1 L CHLORIDE (BEAKER) (test code = 382) 96 meq/L 98-107 L CO2 (BEAKER) (test code = 355) 28 meq/L 22-29 BLOOD UREA NITROGEN (BEAKER) (test code = 354) 13 mg/dL 7-21 CREATININE (BEAKER) (test code = 358) 0.74 mg/dL 0.57-1.25 GLUCOSE RANDOM (BEAKER) (test code = 652) 93 mg/dL 70-105 CALCIUM (BEAKER) (test code = 697) 8.3 mg/dL 8.4-10.2 L EGFR (BEAKER) (test code = 1092) 104 mL/min/1.73 sq m ESTIMATED GFR IS NOT ACCURATE CREATININE CLEARANCE IN PREDICTING GLOMERULAR FILTRATION RATE. ESTIMATED GFR IS NOT APPLICABLE FOR DIALYSIS PATIENTS. Sizing Machine And Drier Operator ID - EDASICBC W/PLT COUNT & AUTO [id number] 06:46:00* Test Item Value Reference Range Interpretation Comments WHITE BLOOD CELL COUNT (BEAKER) (test code = 775) 2.8 K/ L 3.5- 10.5 L RED BLOOD CELL COUNT (BEAKER) (test code = 761) 4.34 M/ L 4.63-6 .08 L HEMOGLOBIN (BEAKER) (test code = 410) 11.4 GM/DL 13.7-17.5 L HEMATOCRIT (BEAKER) (test code = 411) 34.5 % 40.1-51.0 L MEAN CORPUSCULAR VOLUME (BEAKER) (test code = 753) 79.5 fL 79. 0-92.2 MEAN CORPUSCULAR HEMOGLOBIN (BEAKER) (test code = 751) 26.3 pg 25.7-32.2 MEAN CORPUSCULAR HEMOGLOBIN CONC (BEAKER) (test code = 752) 33.0 GM/DL 32.3-36.5 RED CELL DISTRIBUTION WIDTH (BEAKER) (test code = 412) 16.5 % 11.6-14.4 H PLATELET COUNT (BEAKER) (test code = 756) 57 K/CU MM 150-450 L MEAN PLATELET VOLUME (BEAKER) (test code = 754) Unable to report due to abnormal Platelet population distribution. NUCLEATED RED BLOOD CELLS (BEAKER) (test code = 413) 1 /100 WBC 0 -0 H NEUTROPHILS RELATIVE PERCENT (BEAKER) (test code = 429) 68 % LYMPHOCYTES RELATIVE PERCENT (BEAKER) (test code = 430) 9 % MONOCYTES RELATIVE PERCENT (BEAKER) (test code = 431) 19 % EOSINOPHILS RELATIVE PERCENT (BEAKER) (test code = 432) 3 % BASOPHILS RELATIVE PERCENT (BEAKER) (test code = 437) 1 % NEUTROPHILS ABSOLUTE COUNT (BEAKER) (test code = 670) 1.90 K/ L 1.78-5.38 LYMPHOCYTES ABSOLUTE COUNT (BEAKER) (test code = 414) 0.24 K/ L 1.32-3.57 L MONOCYTES ABSOLUTE COUNT (BEAKER) (test code = 415) 0.53 K/ L 0. 30-0.82 EOSINOPHILS ABSOLUTE COUNT (BEAKER) (test code = 416) 0.09 K/ L 0.04-0.54 BASOPHILS ABSOLUTE COUNT (BEAKER) (test code = 417) 0.02 K/ L 0. 01-0.08 IMMATURE GRANULOCYTES-RELATIVE PERCENT (BEAKER) (test code = 2801) 1 % 0-1 Clostridium difficile GDH [id number] 21:59:00* Test Item Value Reference Range Interpretation Comments C. Difficle Toxin (test code = 7017090329) Negative Negative C. Difficile GDH Antigen (test code = 5157407251) Positive Nega tive A C. difficile present but toxin not detected. Indicates colonization with non- toxigenic strain or level of toxin below detectable levels. No need for enteric isolation. Treatment is rarely needed (only when strong clinical suspicion for Clostridium difficile infection) REGINALDO (test code = REGINALDO) Testing performed by Ale[employer] R apid Cassette Assay. For GDH, published sensitivity of the assay is 98.7% compared to cytotoxicity testing. For Toxin AB, published sensitivity is 87.8% and specificity 99.4% compared to cytotoxicity testing.Verification of kit performance was done by the [facility] prior to clinical use. Lab Interpretation (test code = 06295-4) Abnormal [facility] DIFFIC[facility] GDH [id number] 21:59:00* Test Item Value Reference Range Interpretation Comments CDT TOXIN (test code = 1430100306) Negative Negative CDT GDH ANTIGEN (test code = 7350511730) Positive Negative A C. difficile present but toxin not detected. Indicates colonization with non-toxigenic strain or level of toxin below detectable levels. No need for enteric isolation. Treatment is rarely needed (only when strong clinical suspicion for Clostridium difficile infection) Testing performed by Ale[employer] Rapid Cassette Assay. For GDH, published sensitivity of the assay is 98.7% compared to cytotoxicity testing. For Toxin AB, published sensitivity is 87.8% and specificity 99.4% compared to cytotoxicity testing.Ve rification of kit performance was done by the [facility] prior to cl inical use.Urine Protein Electrophoresis, 24 [id number] 19:31:00* Test Item Value Reference Range Interpretation Comments Protein, 24hr Urine (test code = 81836-2) 150 0- 300 mg/24 hr Volume, Urine (test code = 3167-4) 1150 ml Albumin, 24hr Urine (test code = 28420-0) 31.3 % Globulin, 24hr Urine (test code = 55174-3) 68.7 % UPEP, ID (test code = 1433) No monoclonal bands detected. Protein, Urine (test code = 2888-6) 13 mg/dL 0-14 Pathologist: (test code = 2598) Patrizia Bliss MD (electron ic signature) REGINALDO (test code = REGINALDO) Sizing Machine And Drier Operator ID - [facility] PROTEIN ELECTROPHORESIS, 24 [id number] 19:31:00* Test Item Value Reference Range Interpretation Comments PROTEIN, 24HR URINE (BEAKER) (test code = 1570) 150 mg/24hr 0-300 VOLUME, TOTAL (BEAKER) (test code = 1457) 1150 ml ALBUMIN, 24HR URINE (BEAKER) (test code = 1609) 31.3 % GLOBULIN, 24HR URINE (BEAKER) (test code = 1610) 68.7 % UPEP, ID (BEAKER) (test code = 1433) No monoclonal bands detected. PROTEIN, URINE (BEAKER) (test code = 1569) 13 mg/dL 0-14 [facility] PATHOLOGIST-2204 (BEAKER) (test code = 2598) Raissa Bliss MD (electronic signature) Sizing Machine And Drier Operator ID - [id number] 12:28:00* Test Item Value Reference Range Interpretation Comments PHOSPHORUS (BEAKER) (test code = 604) 2.3 mg/dL 2.3-4.7 Sizing Machine And Drier Operator ID - NAJMA GZYZUZEVRP6135-22-03 12:28:00* Test Item Value Reference Range Interpretation Comments MAGNESIUM (BEAKER) (test code = 627) 1.8 mg/dL 1.6-2.6 Sizing Machine And Drier Operator ID - NAJMA FBASIC METABOLIC [id number] 12:28:00* Test Item Value Reference Range Interpretation Comments SODIUM (BEAKER) (test code = 381) 130 meq/L 136-145 L POTASSIUM (BEAKER) (test code = 379) 3.4 meq/L 3.5-5.1 L CHLORIDE (BEAKER) (test code = 382) 94 meq/L 98-107 L CO2 (BEAKER) (test code = 355) 31 meq/L 22-29 H BLOOD UREA NITROGEN (BEAKER) (test code = 354) 20 mg/dL 7-21 CREATININE (BEAKER) (test code = 358) 1.00 mg/dL 0.57-1.25 GLUCOSE RANDOM (BEAKER) (test code = 652) 125 mg/dL 70-105 H CALCIUM (BEAKER) (test code = 697) 8.4 mg/dL 8.4-10.2 EGFR (BEAKER) (test code = 1092) 73 mL/min/1.73 sq m ESTIMATED GFR IS NOT ACCURATE CREATININE CLEARANCE IN PREDICTING GLOMERULAR FILTRATION RATE. ESTIMATED GFR IS NOT APPLICABLE FOR DIALYSIS PATIENTS. Sizing Machine And Drier Operator ID - NAJMA FCBC W/PLT COUNT & AUTO [id number] 12:20:00* Test Item Value Reference Range Interpretation Comments WHITE BLOOD CELL COUNT (BEAKER) (test code = 775) 3.3 K/ L 3.5- 10.5 L RED BLOOD CELL COUNT (BEAKER) (test code = 761) 4.36 M/ L 4.63-6 .08 L HEMOGLOBIN (BEAKER) (test code = 410) 11.5 GM/DL 13.7-17.5 L HEMATOCRIT (BEAKER) (test code = 411) 34.4 % 40.1-51.0 L MEAN CORPUSCULAR VOLUME (BEAKER) (test code = 753) 78.9 fL 79. 0-92.2 L MEAN CORPUSCULAR HEMOGLOBIN (BEAKER) (test code = 751) 26.4 pg 25.7-32.2 MEAN CORPUSCULAR HEMOGLOBIN CONC (BEAKER) (test code = 752) 33.4 GM/DL 32.3-36.5 RED CELL DISTRIBUTION WIDTH (BEAKER) (test code = 412) 16.8 % 11.6-14.4 H PLATELET COUNT (BEAKER) (test code = 756) 58 K/CU MM 150-450 L MEAN PLATELET VOLUME (BEAKER) (test code = 754) Unable to report due to abnormal Platelet population distribution. NUCLEATED RED BLOOD CELLS (BEAKER) (test code = 413) 1 /100 WBC 0 -0 H NEUTROPHILS RELATIVE PERCENT (BEAKER) (test code = 429) 79 % LYMPHOCYTES RELATIVE PERCENT (BEAKER) (test code = 430) 6 % MONOCYTES RELATIVE PERCENT (BEAKER) (test code = 431) 13 % EOSINOPHILS RELATIVE PERCENT (BEAKER) (test code = 432) 1 % BASOPHILS RELATIVE PERCENT (BEAKER) (test code = 437) 0 % NEUTROPHILS ABSOLUTE COUNT (BEAKER) (test code = 670) 2.64 K/ L 1.78-5.38 LYMPHOCYTES ABSOLUTE COUNT (BEAKER) (test code = 414) 0.19 K/ L 1.32-3.57 L MONOCYTES ABSOLUTE COUNT (BEAKER) (test code = 415) 0.42 K/ L 0. 30-0.82 EOSINOPHILS ABSOLUTE COUNT (BEAKER) (test code = 416) 0.04 K/ L 0.04-0.54 BASOPHILS ABSOLUTE COUNT (BEAKER) (test code = 417) 0.01 K/ L 0. 01-0.08 IMMATURE GRANULOCYTES-RELATIVE PERCENT (BEAKER) (test code = 2801) 1 % 0-1 CT, [id number] 05:52:00Unlisted Reason for Exam - Click Yes and Enter Reason Below->NoFINAL REPORT EXAM: CT of the abdomen and [...] Atherosclerotic calcifications of the aorta and coronary arteries.LIVER: Within normal limits.BILE DUCTS: Within normal limits.GALL BLADDER: Cholelithiasis.PANCREAS: Within normal limits.SPLEEN: Splenomegaly.ADRENALS: Within normal limits.KIDNEYS/URETERS: Mild bilateral hydronephrosis without obstructing st ones, likely due to a distended urinary bladder. Punctate nonobstructing left re nal stone. URINARY BLADDER: Markedly distended and thin walled. REPRODUCTIVE OR DARRELL: Mildly enlarged prostate gland measuring 5.1 cm in diameter. BOWEL/MESENTE RY: No bowel obstruction or abnormal wall thickening. Normal appendix.PERITONEUM /RETROPERITONEUM: 2.6 x 2 x 1.3 cm hyperdensity abutting the urinary bladder dom e which may represent a small hematoma. Small mildly hyperdense abdominal and pelvic ascites. No free air. VESSELS: Calcific atherosclerosis. No abdominal aor tic aneurysm LYMPH NODES: No abdominal or pelvic lymphadenopathy.SOFT TISSUES: A nasarca.BONES: Degenerative changes of the visualized spine. IMPRESSION: Markedl y distended urinary bladder. Correlate clinically for urinary retention. 2.6 x 2 x 1.3 cm hyperdensity abutting the urinary bladder dome which may represent a s mall hematoma. Differential diagnosis is a bladder mass. Imaging follow-up is re commended. Small mildly hyperdense abdominal and pelvic ascites, which may be he morrhagic. Punctate nonobstructing left renal stone. Mild bilateral hydronephros is likely due to the distended urinary bladder. Mildly enlarged prostate gland. Anasarca. Small bilateral pleural effusions. Bilateral lower lobe opacities whic h may represent subsegmental atelectasis and/or pneumonia. Cardiomegaly. Signed: Nash Florez MDReport Verified Date/Time: 05/20/2020 05:52:02 Electronica lly signed by: NASH FLOREZ MD on 05/20/2020 05:[address] abdomen/pelvis without iv [id number] 05:52:00Interface, External Ris In - 05/20/2020 5:55 AM CDTFINAL REPORT EXAM: CT of the abdomen and [...] Atherosclerotic calcifications of the aorta and coronary arteries.LIVER: Within normal limits.BI LE DUCTS: Within normal limits.GALL BLADDER: Cholelithiasis.PANCREAS: Within nor mal limits.SPLEEN: Splenomegaly.ADRENALS: Within normal limits.KIDNEYS/URETERS: Mild bilateral hydronephrosis without obstructing stones, likely due to a disten ded urinary bladder. Punctate nonobstructing left renal stone. URINARY BLADDER: Markedly distended and thin walled. REPRODUCTIVE ORGANS: Mildly enlarged prosta te gland measuring 5.1 cm in diameter. BOWEL/MESENTERY: No bowel obstruction or abnormal wall thickening. Normal appendix.PERITONEUM/RETROPERITONEUM: 2.6 x 2 x 1.3 cm hyperdensity abutting the urinary bladder dome which may represent a smal l hematoma. Small mildly hyperdense abdominal and pelvic ascites. No free air. VESSELS: Calcific atherosclerosis. No abdominal aortic aneurysm LYMPH NODES: No abdominal or pelvic lymphadenopathy.SOFT TISSUES: Anasarca.BONES: Degenerative changes of the visualized spine. IMPRESSION: Markedly distended urinary bladder. Correlate clinically for urinary retention. 2.6 x 2 x 1.3 cm hyperdensity abutt ing the urinary bladder dome which may represent a small hematoma. Differential diagnosis is a bladder mass. Imaging follow-up is recommended. Small mildly hype rdense abdominal and pelvic ascites, which may be hemorrhagic. Punctate nonobstr ucting left renal stone. Mild bilateral hydronephrosis likely due to the distend ed urinary bladder. Mildly enlarged prostate gland. Anasarca. Small bilateral pl eural effusions. Bilateral lower lobe opacities which may represent subsegmental atelectasis and/or pneumonia. Cardiomegaly. Signed: Nash Florez [facility] Veri fi Date/Time: 05/20/2020 05:52:02 [facility][id number] 04:23:00* Test Item Value Reference Range Interpretation Comments Color, UA (test code = 5778-6) Red Clarity, UA (test code = 5767-9) Cloudy Specific [place], UA (test code = 5811-5) 1.013 1.001-1.035 pH, UA (test code = 5803-2) 6.5 5.0-8.0 Protein, UA (test code = 77805-5) 300 mg/dL Negative A Glucose, UA (test code = 365) Negative Negative Ketones, UA (test code = 2514-8) Trace Negative A Bilirubin, UA (test code = 04825-3) Negative Negative Blood, UA (test code = 47818-0) Large Negative A Nitrite, UA (test code = 5802-4) Negative Negative Leukocytes, UA (test code = 5799-2) Large Negative A Urobilinogen, UA (test code = 13893-0) 0.2 mg/dL 0.2-1 RBC, UA (test code = 68528-1) 1075 /HPF WBC, UA (test code = 5821-4) 91683 /HPF Bacteria, UA (test code = 92874-3) Many Specimen Source (test code = 2795) REGINALDO (test code = REGINALDO) Sizing Machine And Drier Operator ID - [auto]Sizing Machine And Drier Operator ID - tech Lab Interpretation (test code = 48559-9) [facility] [id number] 04:23:00* Test Item Value Reference Range Interpretation Comments COLOR (BEAKER) (test code = 470) Red CLARITY (BEAKER) (test code = 469) Cloudy SPECIFIC GRAVITY UA (BEAKER) (test code = 468) 1.013 1.001-1 .035 PH UA (BEAKER) (test code = 467) 6.5 5.0-8.0 PROTEIN UA (BEAKER) (test code = 464) 300 mg/dL Negative A GLUCOSE UA (BEAKER) (test code = 365) Negative Negative KETONES UA (BEAKER) (test code = 371) Trace Negative A BILIRUBIN UA (BEAKER) (test code = 462) Negative Negative BLOOD UA (BEAKER) (test code = 461) Large Negative A NITRITE UA (BEAKER) (test code = 465) Negative Negative LEUKOCYTE ESTERASE UA (BEAKER) (test code = 466) Large Negat edelmira A UROBILINOGEN UA (BEAKER) (test code = 463) 0.2 mg/dL 0.2-1.0 RBC UA (BEAKER) (test code = 519) 1075 /HPF WBC UA (BEAKER) (test code = 520) 40708 /HPF BACTERIA (BEAKER) (test code = 517) Many SOURCE(BEAKER) (test code = 2795) Sizing Machine And Drier Operator ID - [auto]Sizing Machine And Drier Operator ID - techU/S, RENAL, [id number] 19:31:00 Reason for exam:->AKIReason for exam:->REORDER PER ORIGINAL ORDER DUE HIGH VOLUME STATSFINAL REPORT U/S, RENAL, COMPLETEUltrasound of the Kidneys Clinical History: AKIREORDER PER ORIGINAL ORDER DUE HIGH VOLUME STATS [...] Patient unable to void during imaging exam. Impression:Increased renal echotexture is nonspecific but has been associated with medical renal disease. Distended urinary bladder. Patient unable to void during imaging exam. Signed: Oscar Marrero MDReport Verified Date/Time: 05/19/2020 19:31:01 renal [id number] 19:31:00Interface, External Ris In - 05/19/2020 7:33 PM CDTFINAL REPORT U/S, RENAL, COMPLETEUltrasound of the Kidneys Clinical History: AKIREORDER PER ORIGINAL ORDER DUE HIGH VOLUME STATS Discussion: Sonographic evaluation of the kidneys is performed. Right kidney: 11.3 x 6.2 x 5.8 cm, with cortical t hickness of 1.3 cm. Increased cortical echogenicity. No mass. No shadowing ca lculus. No hydronephrosis. Left kidney: 11.2 x 6.3 x 6.3 cm, with cortical thick ness of 1.3 cm. Increased cortical echogenicity. No mass. No shadowing calcul us. No hydronephrosis. Limited doppler evaluation of bilateral main renal arter ies and veins are without acute abnormality. Bladder: Distended. Patient unabl e to void during imaging exam. Impression:Increased renal echotexture is nonspec ific but has been associated with medical renal disease. Distended urinary bladd er. Patient unable to void during imaging exam. Signed: Oscar Marrero MDReport Verified Date/Time: 05/19/2020 19:31:01 [facility]MAGN[facility] 2020-05-19 12:56:00* Test Item Value Reference Range Interpretation Comments MAGNESIUM (BEAKER) (test code = 627) 1.9 mg/dL 1.6-2.6 Specimen markedly hemolyzed Sizing Machine And Drier Operator ID - EDASIBASIC METABOLIC [id number] 12:56:00* Test Item Value Reference Range Interpretation Comments SODIUM (BEAKER) (test code = 381) 127 meq/L 136-145 L POTASSIUM (BEAKER) (test code = 379) 4.5 meq/L 3.5-5.1 Specimen markedly hemolyzed CHLORIDE (BEAKER) (test code = 382) 93 meq/L 98-107 L CO2 (BEAKER) (test code = 355) 28 meq/L 22-29 BLOOD UREA NITROGEN (BEAKER) (test code = 354) 26 mg/dL 7-21 H CREATININE (BEAKER) (test code = 358) 1.59 mg/dL 0.57-1.25 H Specimen markedly hemolyzed GLUCOSE RANDOM (BEAKER) (test code = 652) 140 mg/dL 70-105 H CALCIUM (BEAKER) (test code = 697) 8.6 mg/dL 8.4-10.2 EGFR (BEAKER) (test code = 1092) 43 mL/min/1.73 sq m ESTIMATED GFR IS NOT ACCURATE CREATININE CLEARANCE IN PREDICTING GLOMERULAR FILTRATION RATE. ESTIMATED GFR IS NOT APPLICABLE FOR DIALYSIS PATIENTS. Sizing Machine And Drier Operator ID - EDASISpecimen slightly [id number] 06:59:00* Test Item Value Reference Range Interpretation Comments MAGNESIUM (BEAKER) (test code = 627) 1.7 mg/dL 1.6-2.6 Sizing Machine And Drier Operator ID - EDASIBASIC METABOLIC [id number] 06:59:00* Test Item Value Reference Range Interpretation Comments SODIUM (BEAKER) (test code = 381) 129 meq/L 136-145 L POTASSIUM (BEAKER) (test code = 379) 3.6 meq/L 3.5-5.1 CHLORIDE (BEAKER) (test code = 382) 94 meq/L 98-107 L CO2 (BEAKER) (test code = 355) 29 meq/L 22-29 BLOOD UREA NITROGEN (BEAKER) (test code = 354) 24 mg/dL 7-21 H CREATININE (BEAKER) (test code = 358) 1.34 mg/dL 0.57-1.25 H GLUCOSE RANDOM (BEAKER) (test code = 652) 116 mg/dL 70-105 H CALCIUM (BEAKER) (test code = 697) 8.6 mg/dL 8.4-10.2 EGFR (BEAKER) (test code = 1092) 52 mL/min/1.73 sq m ESTIMATED GFR IS NOT ACCURATE CREATININE CLEARANCE IN PREDICTING GLOMERULAR FILTRATION RATE. ESTIMATED GFR IS NOT APPLICABLE FOR DIALYSIS PATIENTS. Sizing Machine And Drier Operator ID - EDASISpecimen slightly ictericCBC W/PLT COUNT & AUTO DIFFERENTIAL 2020-05-19 06:23:00* Test Item Value Reference Range Interpretation Comments WHITE BLOOD CELL COUNT (BEAKER) (test code = 775) 3.9 K/ L 3.5- 10.5 RED BLOOD CELL COUNT (BEAKER) (test code = 761) 4.45 M/ L 4.63-6 .08 L HEMOGLOBIN (BEAKER) (test code = 410) 11.7 GM/DL 13.7-17.5 L HEMATOCRIT (BEAKER) (test code = 411) 35.2 % 40.1-51.0 L MEAN CORPUSCULAR VOLUME (BEAKER) (test code = 753) 79.1 fL 79. 0-92.2 MEAN CORPUSCULAR HEMOGLOBIN (BEAKER) (test code = 751) 26.3 pg 25.7-32.2 MEAN CORPUSCULAR HEMOGLOBIN CONC (BEAKER) (test code = 752) 33.2 GM/DL 32.3-36.5 RED CELL DISTRIBUTION WIDTH (BEAKER) (test code = 412) 16.9 % 11.6-14.4 H PLATELET COUNT (BEAKER) (test code = 756) 50 K/CU MM 150-450 L MEAN PLATELET VOLUME (BEAKER) (test code = 754) Unable to report due to abnormal Platelet population distribution. NUCLEATED RED BLOOD CELLS (BEAKER) (test code = 413) 0 /100 WBC 0 -0 NEUTROPHILS RELATIVE PERCENT (BEAKER) (test code = 429) 85 % LYMPHOCYTES RELATIVE PERCENT (BEAKER) (test code = 430) 2 % MONOCYTES RELATIVE PERCENT (BEAKER) (test code = 431) 11 % EOSINOPHILS RELATIVE PERCENT (BEAKER) (test code = 432) 1 % BASOPHILS RELATIVE PERCENT (BEAKER) (test code = 437) 0 % NEUTROPHILS ABSOLUTE COUNT (BEAKER) (test code = 670) 3.28 K/ L 1.78-5.38 LYMPHOCYTES ABSOLUTE COUNT (BEAKER) (test code = 414) 0.09 K/ L 1.32-3.57 L MONOCYTES ABSOLUTE COUNT (BEAKER) (test code = 415) 0.44 K/ L 0. 30-0.82 EOSINOPHILS ABSOLUTE COUNT (BEAKER) (test code = 416) 0.02 K/ L 0.04-0.54 L BASOPHILS ABSOLUTE COUNT (BEAKER) (test code = 417) 0.01 K/ L 0. 01-0.08 IMMATURE GRANULOCYTES-RELATIVE PERCENT (BEAKER) (test code = 2801) 1 % 0-1 CT, BRAIN, WITHOUT [id number] 01:35:00Low platelets on heparin drip, r/o bleedUnlisted Reason for Exam - Click Yes and Enter Reason Below->NoFINAL REPORT CT, BRAIN, WITHOUT CONTRAST CLINICAL INDICATION: Hallucinations COMPARISON: None TECHNIQUE: Noncontrast axial CT imaging of the brain and skull. Coronal and sagittal reformats obtained. DOSE REDUCTION: Dose modulation, iterative reconstruction, and/or weight-based adjustment of the mA/kV was utilized to reduce the radiation dose to as low as reasonably achieva ble. FINDINGS:Cerebral parenchyma: Global parenchymal volume loss and white ginny er hypoattenuation. No mass, acute intracranial hemorrhage or acute cortical inf arct.Cerebellum and brainstem: No acute findings.Ventricles: No acute hydrocepha charlie.Extra-axial spaces: Unremarkable. Calvarium and skull base: Intact.Paranasal sinuses and mastoid air cells: Paranasal sinus mucosal thickening.Orbital jackie nts: Included portions unremarkable. Additional findings: None. IMPRESSION: No acute intracranial abnormality. Involutional and chronic microangiopathic ischem ic changes. If there is persistent clinical concern for intracranial pathology, MR examination is recommended for further characterization. Signed: Ap Marrero MDReport Verified Date/Time: 05/19/2020 01:35:02 brain without IV contrast 2020-05-19 01:35:00Interface, External Ris In - 05/19/2020 1:[address], BRAIN, WITHOUT CONTRAST CLINICAL INDICATION: Hallucinations COMPARISON: None TECHNIQUE: Noncontrast axial CT imaging of the brain and skull. Coronal and sagittal reformats obtained. DOSE REDUCTION: Dose modulation, iterative reconstruction, and/or weight-based adjustment of the mA/kV was utilized to reduce the radiation dose to as low as reasonably achievable. FINDINGS:Cerebral parenchyma: Global parenchymal volume loss and white matter hypoattenuation. No mass, acute intracranial hemorrhage or acute cortical infarct.Cerebellum and brainstem: No acute findings.Ventricles: No acute hydrocephalus.Extra-axial spaces: Unremarkable. Calvarium and skull base: Intact.Paranasal sinuses and mastoid air cells: Paranasal sinus mucosal thickening.Orbital contents: Included portions unremarkable. Additional findings: None. IMPRESSION: No acute intracranial abnormality. Involutional and chronic microangiopathic ischemic changes. If there is persistent clinical concern for intracranial pathology, MR examination is recommended for further characterization. Signed: Oscar Marrero MDReport Verified Date/Time: 05/19/2020 01:35:02 [facility]Blood [facility] 19:01:00* Test Item Value Reference Range Interpretation Comments Result (test code = 6463-4) No growth in 5 days [facility]BLOOD [id number] 19:01:00* Test Item Value Reference Range Interpretation Comments CULTURE (BEAKER) (test code = 1095) No growth in 5 days BLOOD [id number] 19:01:00* Test Item Value Reference Range Interpretation Comments CULTURE (BEAKER) (test code = 1095) No growth in 5 days [id number] 15:31:00* Test Item Value Reference Range Interpretation Comments PTT (test code = 96174-8) >200.0 22.5- 36.0 seconds Lab Interpretation (test code = 59979-4) [facility]normal [facility] 15:31:00* Test Item Value Reference Range Interpretation Comments PARTIAL THROMBOPLASTIN TIME (BEAKER) (test code = 760) > seconds 22.5-36.0 [id number] 14:10:00* Test Item Value Reference Range Interpretation Comments PARTIAL THROMBOPLASTIN TIME (BEAKER) (test code = 760) > seconds 22.5-36.0 [id number] 06:30:00* Test Item Value Reference Range Interpretation Comments PARTIAL THROMBOPLASTIN TIME (BEAKER) (test code = 760) 84.2 seconds 22.5-36.0 H [id number] 05:37:00* Test Item Value Reference Range Interpretation Comments PARTIAL THROMBOPLASTIN TIME (BEAKER) (test code = 760) 174.4 sec onds 22.5-36.0 [id number] 03:01:00* Test Item Value Reference Range Interpretation Comments PARTIAL THROMBOPLASTIN TIME (BEAKER) (test code = 760) > seconds 22.5-36.0 [id number] 01:55:00* Test Item Value Reference Range Interpretation Comments MAGNESIUM (BEAKER) (test code = 627) 1.7 mg/dL 1.6-2.6 Specimen slightly hemolyzed Sizing Machine And Drier Operator ID - PIAYA LBASIC METABOLIC [id number] 01:55:00* Test Item Value Reference Range Interpretation Comments SODIUM (BEAKER) (test code = 381) 131 meq/L 136-145 L POTASSIUM (BEAKER) (test code = 379) 3.5 meq/L 3.5-5.1 Specimen slightly hemolyzed CHLORIDE (BEAKER) (test code = 382) 94 meq/L 98-107 L CO2 (BEAKER) (test code = 355) 24 meq/L 22-29 BLOOD UREA NITROGEN (BEAKER) (test code = 354) 19 mg/dL 7-21 CREATININE (BEAKER) (test code = 358) 1.16 mg/dL 0.57-1.25 Specimen slightly hemolyzed GLUCOSE RANDOM (BEAKER) (test code = 652) 131 mg/dL 70-105 H CALCIUM (BEAKER) (test code = 697) 9.1 mg/dL 8.4-10.2 EGFR (BEAKER) (test code = 1092) 62 mL/min/1.73 sq m ESTIMATED GFR IS NOT ACCURATE CREATININE CLEARANCE IN PREDICTING GLOMERULAR FILTRATION RATE. ESTIMATED GFR IS NOT APPLICABLE FOR DIALYSIS PATIENTS. Sizing Machine And Drier Operator ID - PIAYA LSpecimen slightly ictericCBC W/PLT COUNT & AUTO [id number] 01:49:00* Test Item Value Reference Range Interpretation Comments WHITE BLOOD CELL COUNT (BEAKER) (test code = 775) 8.2 K/ L 3.5- 10.5 RED BLOOD CELL COUNT (BEAKER) (test code = 761) 4.65 M/ L 4.63-6 .08 HEMOGLOBIN (BEAKER) (test code = 410) 12.2 GM/DL 13.7-17.5 L HEMATOCRIT (BEAKER) (test code = 411) 37.3 % 40.1-51.0 L MEAN CORPUSCULAR VOLUME (BEAKER) (test code = 753) 80.2 fL 79. 0-92.2 MEAN CORPUSCULAR HEMOGLOBIN (BEAKER) (test code = 751) 26.2 pg 25.7-32.2 MEAN CORPUSCULAR HEMOGLOBIN CONC (BEAKER) (test code = 752) 32.7 GM/DL 32.3-36.5 RED CELL DISTRIBUTION WIDTH (BEAKER) (test code = 412) 17.0 % 11.6-14.4 H PLATELET COUNT (BEAKER) (test code = 756) 51 K/CU MM 150-450 L MEAN PLATELET VOLUME (BEAKER) (test code = 754) Unable to report due to abnormal Platelet population distribution. NUCLEATED RED BLOOD CELLS (BEAKER) (test code = 413) 0 /100 WBC 0 -0 NEUTROPHILS RELATIVE PERCENT (BEAKER) (test code = 429) 87 % LYMPHOCYTES RELATIVE PERCENT (BEAKER) (test code = 430) 2 % MONOCYTES RELATIVE PERCENT (BEAKER) (test code = 431) 10 % EOSINOPHILS RELATIVE PERCENT (BEAKER) (test code = 432) 1 % BASOPHILS RELATIVE PERCENT (BEAKER) (test code = 437) 0 % NEUTROPHILS ABSOLUTE COUNT (BEAKER) (test code = 670) 7.10 K/ L 1.78-5.38 H LYMPHOCYTES ABSOLUTE COUNT (BEAKER) (test code = 414) 0.12 K/ L 1.32-3.57 L MONOCYTES ABSOLUTE COUNT (BEAKER) (test code = 415) 0.85 K/ L 0. 30-0.82 H EOSINOPHILS ABSOLUTE COUNT (BEAKER) (test code = 416) 0.06 K/ L 0.04-0.54 BASOPHILS ABSOLUTE COUNT (BEAKER) (test code = 417) 0.01 K/ L 0. 01-0.08 IMMATURE GRANULOCYTES-RELATIVE PERCENT (BEAKER) (test code = 2801) 1 % 0-1 [id number] 18:11:00* Test Item Value Reference Range Interpretation Comments PARTIAL THROMBOPLASTIN TIME (BEAKER) (test code = 760) 48.2 seconds 22.5-36.0 H 6 hours after starting heparin infusion and as indicated per sliding scale Peripheral Blood Smear - Hold [id number] 18:10:00* Test Item Value Reference Range Interpretation Comments Peripheral Smear Save (test code = 1815) SAVED [facility]PERIPHERAL BLOOD S[facility]AR - HOLD [id number] 18:10:00* Test Item Value Reference Range Interpretation Comments PERIPHERAL SMEAR SAVE (BEAKER) (test code = 1815) SAVED [id number] 15:15:00* Test Item Value Reference Range Interpretation Comments MAGNESIUM (BEAKER) (test code = 627) 1.9 mg/dL 1.6-2.6 Sizing Machine And Drier Operator ID - AAHAMIDBASIC METABOLIC [id number] 15:15:00* Test Item Value Reference Range Interpretation Comments SODIUM (BEAKER) (test code = 381) 135 meq/L 136-145 L POTASSIUM (BEAKER) (test code = 379) 3.7 meq/L 3.5-5.1 CHLORIDE (BEAKER) (test code = 382) 97 meq/L 98-107 L CO2 (BEAKER) (test code = 355) 30 meq/L 22-29 H BLOOD UREA NITROGEN (BEAKER) (test code = 354) 18 mg/dL 7-21 CREATININE (BEAKER) (test code = 358) 1.22 mg/dL 0.57-1.25 GLUCOSE RANDOM (BEAKER) (test code = 652) 125 mg/dL 70-105 H CALCIUM (BEAKER) (test code = 697) 8.7 mg/dL 8.4-10.2 EGFR (BEAKER) (test code = 1092) 58 mL/min/1.73 sq m ESTIMATED GFR IS NOT ACCURATE CREATININE CLEARANCE IN PREDICTING GLOMERULAR FILTRATION RATE. ESTIMATED GFR IS NOT APPLICABLE FOR DIALYSIS PATIENTS. Sizing Machine And Drier Operator ID - AAHAMIDSpecimen slightly ictericCBC W/PLT COUNT & AUTO [id number] 15:09:00* Test Item Value Reference Range Interpretation Comments WHITE BLOOD CELL COUNT (BEAKER) (test code = 775) 8.9 K/ L 3.5- 10.5 RED BLOOD CELL COUNT (BEAKER) (test code = 761) 4.70 M/ L 4.63-6 .08 HEMOGLOBIN (BEAKER) (test code = 410) 12.5 GM/DL 13.7-17.5 L HEMATOCRIT (BEAKER) (test code = 411) 37.5 % 40.1-51.0 L MEAN CORPUSCULAR VOLUME (BEAKER) (test code = 753) 79.8 fL 79. 0-92.2 MEAN CORPUSCULAR HEMOGLOBIN (BEAKER) (test code = 751) 26.6 pg 25.7-32.2 MEAN CORPUSCULAR HEMOGLOBIN CONC (BEAKER) (test code = 752) 33.3 GM/DL 32.3-36.5 RED CELL DISTRIBUTION WIDTH (BEAKER) (test code = 412) 17.0 % 11.6-14.4 H PLATELET COUNT (BEAKER) (test code = 756) 52 K/CU MM 150-450 L MEAN PLATELET VOLUME (BEAKER) (test code = 754) Unable to report due to abnormal Platelet population distribution. NUCLEATED RED BLOOD CELLS (BEAKER) (test code = 413) 0 /100 WBC 0 -0 NEUTROPHILS RELATIVE PERCENT (BEAKER) (test code = 429) 84 % LYMPHOCYTES RELATIVE PERCENT (BEAKER) (test code = 430) 2 % MONOCYTES RELATIVE PERCENT (BEAKER) (test code = 431) 13 % EOSINOPHILS RELATIVE PERCENT (BEAKER) (test code = 432) 0 % BASOPHILS RELATIVE PERCENT (BEAKER) (test code = 437) 0 % NEUTROPHILS ABSOLUTE COUNT (BEAKER) (test code = 670) 7.49 K/ L 1.78-5.38 H LYMPHOCYTES ABSOLUTE COUNT (BEAKER) (test code = 414) 0.13 K/ L 1.32-3.57 L MONOCYTES ABSOLUTE COUNT (BEAKER) (test code = 415) 1.19 K/ L 0. 30-0.82 H EOSINOPHILS ABSOLUTE COUNT (BEAKER) (test code = 416) 0.03 K/ L 0.04-0.54 L BASOPHILS ABSOLUTE COUNT (BEAKER) (test code = 417) 0.01 K/ L 0. 01-0.08 IMMATURE GRANULOCYTES-RELATIVE PERCENT (BEAKER) (test code = 2801) 1 % 0-1 Prepare Leuko-Red [id number] 23:54:00* Test Item Value Reference Range Interpretation Comments Unit ABO (test code = 8884396) O Neg UNIT NUMBER (test code = 934-0) [id number] Status (test code = 0076581) TX_TIMEINCHART Blood Bank Product (test code = 2263) PLATELETS PRODUCT CODE (test code = 933-2) [id number] [facility]BASI METABOLIC [id number] 07:09:00* Test Item Value Reference Range Interpretation Comments SODIUM (BEAKER) (test code = 381) 137 meq/L 136-145 POTASSIUM (BEAKER) (test code = 379) 3.6 meq/L 3.5-5.1 CHLORIDE (BEAKER) (test code = 382) 101 meq/L 98-107 CO2 (BEAKER) (test code = 355) 30 meq/L 22-29 H BLOOD UREA NITROGEN (BEAKER) (test code = 354) 14 mg/dL 7-21 CREATININE (BEAKER) (test code = 358) 0.81 mg/dL 0.57-1.25 GLUCOSE RANDOM (BEAKER) (test code = 652) 100 mg/dL 70-105 CALCIUM (BEAKER) (test code = 697) 8.6 mg/dL 8.4-10.2 EGFR (BEAKER) (test code = 1092) 94 mL/min/1.73 sq m ESTIMATED GFR IS NOT ACCURATE CREATININE CLEARANCE IN PREDICTING GLOMERULAR FILTRATION RATE. ESTIMATED GFR IS NOT APPLICABLE FOR DIALYSIS PATIENTS. Sizing Machine And Drier Operator ID - EDASISpecimen slightly ictericCBC W/PLT COUNT & AUTO DIFFERENTIAL 2020-05-16 06:52:00* Test Item Value Reference Range Interpretation Comments WHITE BLOOD CELL COUNT (BEAKER) (test code = 775) 3.8 K/ L 3.5- 10.5 RED BLOOD CELL COUNT (BEAKER) (test code = 761) 4.48 M/ L 4.63-6 .08 L HEMOGLOBIN (BEAKER) (test code = 410) 11.9 GM/DL 13.7-17.5 L HEMATOCRIT (BEAKER) (test code = 411) 36.6 % 40.1-51.0 L MEAN CORPUSCULAR VOLUME (BEAKER) (test code = 753) 81.7 fL 79. 0-92.2 MEAN CORPUSCULAR HEMOGLOBIN (BEAKER) (test code = 751) 26.6 pg 25.7-32.2 MEAN CORPUSCULAR HEMOGLOBIN CONC (BEAKER) (test code = 752) 32.5 GM/DL 32.3-36.5 RED CELL DISTRIBUTION WIDTH (BEAKER) (test code = 412) 17.0 % 11.6-14.4 H PLATELET COUNT (BEAKER) (test code = 756) 45 K/CU MM 150-450 L MEAN PLATELET VOLUME (BEAKER) (test code = 754) Unable to report due to abnormal Platelet population distribution. NUCLEATED RED BLOOD CELLS (BEAKER) (test code = 413) 1 /100 WBC 0 -0 H NEUTROPHILS RELATIVE PERCENT (BEAKER) (test code = 429) 68 % LYMPHOCYTES RELATIVE PERCENT (BEAKER) (test code = 430) 3 % MONOCYTES RELATIVE PERCENT (BEAKER) (test code = 431) 28 % EOSINOPHILS RELATIVE PERCENT (BEAKER) (test code = 432) 1 % BASOPHILS RELATIVE PERCENT (BEAKER) (test code = 437) 0 % NEUTROPHILS ABSOLUTE COUNT (BEAKER) (test code = 670) 2.58 K/ L 1.78-5.38 LYMPHOCYTES ABSOLUTE COUNT (BEAKER) (test code = 414) 0.12 K/ L 1.32-3.57 L MONOCYTES ABSOLUTE COUNT (BEAKER) (test code = 415) 1.06 K/ L 0. 30-0.82 H EOSINOPHILS ABSOLUTE COUNT (BEAKER) (test code = 416) 0.04 K/ L 0.04-0.54 BASOPHILS ABSOLUTE COUNT (BEAKER) (test code = 417) 0.00 K/ L 0. 01-0.08 L IMMATURE GRANULOCYTES-RELATIVE PERCENT (BEAKER) (test code = 2801) 1 % 0-1 Vitamin B12 and [id number] 07:08:00* Test Item Value Reference Range Interpretation Comments Vitamin B12 (test code = 2132-9) >2000 213-816 H Folate (test code = 2284-8) 15.60 ng/mL >=7.00 REGINALDO (test code = REGINALDO) Sizing Machine And Drier Operator ID - EDASI Lab Interpretation (test code = 75398-5) [facility]normal [facility] AND [id number] 07:08:00* Test Item Value Reference Range Interpretation Comments VITAMIN B12 (BEAKER) (test code = 774) > pg/mL 213-816 H FOLATE (BEAKER) (test code = 362) 15.60 ng/mL >=7.00 Sizing Machine And Drier Operator ID - EDASIBASIC METABOLIC [id number] 06:33:00* Test Item Value Reference Range Interpretation Comments SODIUM (BEAKER) (test code = 381) 138 meq/L 136-145 POTASSIUM (BEAKER) (test code = 379) 3.6 meq/L 3.5-5.1 CHLORIDE (BEAKER) (test code = 382) 103 meq/L 98-107 CO2 (BEAKER) (test code = 355) 27 meq/L 22-29 BLOOD UREA NITROGEN (BEAKER) (test code = 354) 19 mg/dL 7-21 CREATININE (BEAKER) (test code = 358) 0.78 mg/dL 0.57-1.25 GLUCOSE RANDOM (BEAKER) (test code = 652) 101 mg/dL 70-105 CALCIUM (BEAKER) (test code = 697) 8.7 mg/dL 8.4-10.2 EGFR (BEAKER) (test code = 1092) 98 mL/min/1.73 sq m ESTIMATED GFR IS NOT ACCURATE CREATININE CLEARANCE IN PREDICTING GLOMERULAR FILTRATION RATE. ESTIMATED GFR IS NOT APPLICABLE FOR DIALYSIS PATIENTS. Sizing Machine And Drier Operator ID - EDASICBC W/PLT COUNT & AUTO [id number] 06:10:00* Test Item Value Reference Range Interpretation Comments WHITE BLOOD CELL COUNT (BEAKER) (test code = 775) 3.6 K/ L 3.5- 10.5 RED BLOOD CELL COUNT (BEAKER) (test code = 761) 4.34 M/ L 4.63-6 .08 L HEMOGLOBIN (BEAKER) (test code = 410) 11.8 GM/DL 13.7-17.5 L HEMATOCRIT (BEAKER) (test code = 411) 35.6 % 40.1-51.0 L MEAN CORPUSCULAR VOLUME (BEAKER) (test code = 753) 82.0 fL 79. 0-92.2 MEAN CORPUSCULAR HEMOGLOBIN (BEAKER) (test code = 751) 27.2 pg 25.7-32.2 MEAN CORPUSCULAR HEMOGLOBIN CONC (BEAKER) (test code = 752) 33.1 GM/DL 32.3-36.5 RED CELL DISTRIBUTION WIDTH (BEAKER) (test code = 412) 16.9 % 11.6-14.4 H PLATELET COUNT (BEAKER) (test code = 756) 42 K/CU MM 150-450 L Discordant PLT results compared to previous results; clinical correlation required. MEAN PLATELET VOLUME (BEAKER) (test code = 754) Unable to report due to abnormal Platelet population distribution. NUCLEATED RED BLOOD CELLS (BEAKER) (test code = 413) 1 /100 WBC 0 -0 H NEUTROPHILS RELATIVE PERCENT (BEAKER) (test code = 429) 67 % LYMPHOCYTES RELATIVE PERCENT (BEAKER) (test code = 430) 3 % MONOCYTES RELATIVE PERCENT (BEAKER) (test code = 431) 29 % EOSINOPHILS RELATIVE PERCENT (BEAKER) (test code = 432) 1 % BASOPHILS RELATIVE PERCENT (BEAKER) (test code = 437) 0 % NEUTROPHILS ABSOLUTE COUNT (BEAKER) (test code = 670) 2.42 K/ L 1.78-5.38 LYMPHOCYTES ABSOLUTE COUNT (BEAKER) (test code = 414) 0.10 K/ L 1.32-3.57 L MONOCYTES ABSOLUTE COUNT (BEAKER) (test code = 415) 1.07 K/ L 0. 30-0.82 H EOSINOPHILS ABSOLUTE COUNT (BEAKER) (test code = 416) 0.02 K/ L 0.04-0.54 L BASOPHILS ABSOLUTE COUNT (BEAKER) (test code = 417) 0.01 K/ L 0. 01-0.08 IMMATURE GRANULOCYTES-RELATIVE PERCENT (BEAKER) (test code = 0201) 1 % 0-1 B-type Natriuretic Factor (BNP)2020-05-15 05:51:00* Test Item Value Reference Range Interpretation Comments BNP (test code = 02191-0) 429 pg/mL 0-100 H REGINALDO (test code = REGINALDO) Sizing Machine And Drier Operator ID - EDASI Lab Interpretation (test code = 95072-5) Abnormal [facility] NATRIURET[facility] FA[facility] (BNP)2020-05-15 05:51:00 * Test Item Value Reference Range Interpretation Comments B-TYPE NATRIURETIC PEPTIDE (BEAKER) (test code = 700) 429 pg/mL 0-100 H Sizing Machine And Drier Operator ID - EDASIECG/EKG Eljqsfikenbujg7020-07-30 02:12:49Janine Main MD 05/15/2020 2:19 AMECG/EKG InterpretationDate/Time: 05/15/2020 2:16 AMPerformed by: Janine Main MDAuthorized by: Janine Main MD The ECG was interpreted by ED physician. This ECG was compared with previous ECG(s).The ECG is interpreted as sinus rhythm. Rate is normal rate. Heart rate is 66 BPM.[place] is left. Right sided lead use: right-sided leads not used. Left sided lead use: Posterior leads were not used. Clinical Impression: non-specific ECGECG reviewed and does not meet STEMI criteria. Patient to lerance: Patient tolerated the procedure well with no immediate complications [facility] campusABORH, [id number] 20:26:00* Test Item Value Reference Range Interpretation Comments Rh Factor (test code = 2589) NEG ABO Grouping (test code = 2588) O [facility] campusType and screen, [id number] 19:37:00* Test Item Value Reference Range Interpretation Comments ABO/RH AUTOMATED (BEAKER) (test code = 2260) O NEGATIVE Ab Scrn (test code = 890-4) NEGATIVE [facility]2D Echo W/Doppler(CW/PW/Color)2020-05-14 17:33:20 Ejection FractionSLEH ECHO HEARTLAB MKCKESSON CPACSInterface, External Ris In - 05/14/2020 5:33 PM CDTTransthoracic Echocardiography Report (TTE) Demographics Patient Name PIERRE PHILLIPS Date of Study 05/14/2020 HUZMA Gender Male Visit Number [id number] Race Room Number 2142 Number [facility] of 1950 [facility] Physician Mikal Ryan MD Age 70 year(s) Psychologist Educational Nini Maldonado [facility] Metal Buffer Baylee Guerrier [facility] Interpreting Pb Meneses MD Physician Procedure Ty pe of Study TTE procedure:2DECHO W DOPPLER(CW/PW/COLOR) (STAT) Indications:R V Function evaluation and Concern for Pulm Emboli.Clinical HistoryHGB 12.1HCT 37 .4%CAD, HLD, HTN,TAVON, WALDENSTROM'S MACROGLOBULINEMIA, PCI (2010)Height: 70 inch es Weight: 95.25 kg (210 lbs) BSA: 2.13 m^2 BMI: 30.13 kg/m^2HR: 63 bpm BP: 114/ 68 mmHg Summary 1. The left ventricle is chamber size (by vol index) is small. N o evidence of LV hypertrophy. All of the LV segments contract normally. LVEF by Negrete's method of disk assessment is normal (55-60%). Normal diastolic functio n. LA size is normal (16-34 ml/m2). 2. RV chamber size is normal. Global RV sys tolic function is mildly depressed. RA size is normal. Unable to estimate peak s ystolic PA pressure; inadequate TR velocity signal. 3. Mild pulmonary regurgita tion. Previous Study No prior studies available for comparison. Signature --- Electronically sig kaz by Pb Meneses MD(Interpreting physician) on 05/14/2020 05:33 PM ------ Findings Technical Q uality: Technically adequate exam. Left Ventricle The left ventricle is chamber size (by vol index) is small. No evidence of LV h ypertrophy. All of the LV segments contract normally . Gl obal LV systolic function normal . LVEF by Negrete's meth od of disk assessment is normal (55-60%) . Normal diastol ic function. Left Atrium LA size is normal (1 6-34 ml/m2) . Right Ventricle RV chamber size is normal . Global RV systolic function is mildly depressed . Right Atrium RA size is normal. Aortic Valve Mild AoV cusp thickening. Trace aortic regurgitation. Mitral Valve Normal MV str ucture. Trace mitral regurgitation. Tricuspid Valve TV structure is normal. A trace of tricuspid regurgita tion. Unable to estimate peak systolic PA pressure; inadequate TR velocity signal. Pulmonic Valve Mild pu lmonary regurgitation. Normal PV structure appears normal by available views. Aorta Aortic root size (SInus of Valsalva diameter) is normal . Pericardiu m No pericardial effusion is visualized. IVC/SVC/PA/PV/Pleural The inferior vena cava size is increased . The estimated RA p ressure by IVC dynamics 11-15mmHg . Chambers/Structures L eft Atrium LA Volume: 66.8 ml LA Area: 23.6 cm^2 LA Vol. Index: 31 ml/m^2 Left Ventricle LVIDd: 4.3 cm LVIDs: 2.54 cm LV Septum Diastol ic: 0.98 cm LV PW Diastolic: 1.13 cm LV FS: 40.9 % LVEDV Simp son's:67.05 ml LVESV Negrete's:22.61 ml LVEDVI: 31 ml/m^2 LVE F Negrete's: 59.5 % LVESVI: 11 ml/m^2 LVOT Diameter: 1.93 cm Aorta Ao Root S of Soumya.: 2.91 cm Doppler/Quantitative Measurements Mitral Va lve MV Peak E-Wave: 1.02 m/s MV Peak A-Wave: 0.5 m/s E/A Ratio: 2.02 P eak Gradient: 4.15 mmHg Deceleration Time: 110.8 msec MV Paul. Peak: Tissue Doppler E' Lateral Velocity: 0.1 m/s E/E': 9.74 Aortic Valve Peak Velocity: 1.24 m/s Mean Veloc ity: 0.88 m/s Peak Gradient: 6.12 mmHg Mean Gradient: 3.4 mmHg AV Area (continuity): 2.38 cm^2 AV VTI: 28.63 cm AV DVI: 0.81 LVOT Peak Veloc ity: 0.94 m/s Peak Gradient: 3.54 mmHg Mean Velocity: 0.68 m/s Mean Gradient: 2.01 mmHg LVOT Diameter: 1.93 cm LVOT VTI: 23 .32 cm LVOT Area: 2.93 cm^2 LVOT SV:68.19 ml LVOT CO: 4.3 l/min LVOT CI: 2.02 l/min/m^2 [facility] campusVenous doppler legs [id number] 16:32:46Ejection FractionSLE ECHO HEARTLAB MKCKESSON CPACSRight Impression1. There is no deep venous obstruction in the common femoral, profundafemoral, femoral, popliteal, posterior tibial or peroneal veins.2. There is no superficial venous obstruction in the great saphenous vein.Left Impression1. There is no deep venous obstruction in the common femoral, profundafemoral, femoral, popliteal, posterior tibial or peroneal veins.2. There is no superficial venous obstruction in the great saphenous vein. Conclusions Summary Venous duplex imaging and compression of the bilateral lower extremities were performed. The veins were adequately vis ualized. The bilateral venous systems were patent and compressible with no evide nce of thrombus. The venous Doppler waveforms were pulsatile indicating possible elevated right heart filling pressure . Signature Velocities are measured in cm/s ; Diameters are m easured in cm Interface, External Ris In - 05/14/2020 4:32 PM CDTPV LAB - Lower Extremities DVT Study Demographics Patient Name PIERRE PHILLIPS Date of Study 05/14/2020 Age 70 Visit Number [id number] Gender Male [place] on Number [id number] Date of 1950 Referring Mirlande HernandezLillie, Room Number 2142 Physician Psychologist Educational Niranjan Capone T Interpreting Dell Hamm MD Physician ProcedureType of Study: Veins: Lower Extremities DVT Study, VENOUS DOPPLER LEG, BILATERAL. Indications for Study:To look for DVT and Pulmonary embolus .Patient Status:STAT.Study Location:Portable.Technical Sohan lity:Adequate visualization.Risk FactorsHistory of Disease+---------+----+------ +!Diagnosis!Date!Comments !+---------+----+ +!Other ! !CAD s/p PCI in 201 1, Known PE !+---------+----+ +ImpressionsRight Impression1. There is no deep venous obstruction in the common femoral, profundafemoral, femoral, poplite al, posterior tibial or peroneal veins.2. There is no superficial venous obstruc tion in the great saphenous vein.Left Impression1. There is no deep venous obstr uction in the common femoral, profundafemoral, femoral, popliteal, posterior tib ial or peroneal veins.2. There is no superficial venous obstruction in the great saphenous vein. Conclusions Summary Venous duplex imaging and compression of the bilateral lower extremities were performed. The veins were adequately visual ized. The bilateral venous systems were patent and compressible with no evidence of thrombus. The venous Doppler waveforms were pulsatile indicating possible el evated right heart filling pressure . Signature Velocities are measured in cm/s ; Diameters are marilee ured in [facility] HospitalHaptoglobin2020-09-24 13:43:00* Test Item Value Reference Range Interpretation Comments Haptoglobin (test code = 4542-7) 51 mg/dL REGINALDO (test code = REGINALDO) Sizing Machine And Drier Operator ID - PIAYA L Lab Interpretation (test code = 40071-5) Normal [facility] campusHAPTOGLOBIN2020-09-24 13:43:00* Test Item Value Reference Range Interpretation Comments HAPTOGLOBIN (BEAKER) (test code = 366) 51 mg/dL Sizing Machine And Drier Operator ID - PIAYA [id number] 13:33:00* Test Item Value Reference Range Interpretation Comments Fibrinogen (test code = 3255-7) 496 mg/dl 225-434 H Lab Interpretation (test code = 09763-3) Abnormal [facility] campusFIBRINOGEN2020-09-24 13:33:00* Test Item Value Reference Range Interpretation Comments FIBRINOGEN LEVEL (BEAKER) (test code = 658) 496 mg/dl 225-434 H Troponin [id number] 11:31:00* Test Item Value Reference Range Interpretation Comments Troponin I (test code = 17188-8) <0.01 0-0.03 REGINALDO (test code = REGINALDO) Troponin I (TnI) levels must be interpreted in the context of the presenting symptoms and the clinical findings. Elevated TnI levels indicate myocardial damage, but are not specific for ischemic heart disease. Elevated TnI levels are seen in patients with other cardiac conditions (including myocarditis and congestive heart failure), and slight TnI elevations occur in patients with other conditions, including sepsis, renal failure, acidosis, acute neurological disease, and persistent tachyarrhythmia.Sizing Machine And Drier Operator ID Og DESIR L Lab Interpretation (test code = 91348-5) Normal [facility] campusTRFORMERLY [facility]ASTNIN [id number] 11:31:00* Test Item Value Reference Range Interpretation Comments TROPONIN I (ALMITA) (test code = 397) < ng/mL 0.00-0.03 Troponin I (TnI) levels must be interpreted in the context of the presenting sym ptoms and the clinical findings. Elevated TnI levels indicate myocardial damage, but are not specific for ischemic heart disease. Elevated TnI levels are seen i n patients with other cardiac conditions (including myocarditis and congestive h eart failure), and slight TnI elevations occur in patients with other conditions , including sepsis, renal failure, acidosis, acute neurological disease, and per sistent tachyarrhythmia.Sizing Machine And Drier Operator EDITH DESIR LB-TYPE NATRIURETIC FACTOR (BNP) 2020-05-14 11:28:00* Test Item Value Reference Range Interpretation Comments B-TYPE NATRIURETIC PEPTIDE (ALMITA) (test code = 700) 502 pg/mL 0-100 H Sizing Machine And Drier Operator EDITH DESIR LSARS-COV2/RT-PCR ([facility])2020-05-14 09:50:00* Test Item Value Reference Range Interpretation Comments SARS-COV2/RT-PCR (test code = 7585456) Negative N ot Detected, Negative, See external report for linked test SARS-COV-2 PERFORMING LAB (test code = 0345746) [facility] Negative result for this test determines that SARS-CoV-2 RNA was not present in the specimen above the Limit of Detection (LOD). However, Negative results do n ot preclude SARS-CoV-2 infection and should not be used as the sole basis for tr eatment or patient management decisions. Negative results must be combined with clinical observations, patient history, and epidemiological information. A false negative result may occur if a specimen is improperly collected, transported or handled. A false negative result should be considered if patient's recent expo sures or clinical presentation indicate that COVID-19 (SARS-CoV-2) is likely and diagnostic tests for other causes of illness are negative. Re-testing should b e considered in cases of suspected false negatives.The limit of detection for th is assay is 800 copies/mL.This SARS CoV-2 test is a real-time RT-PCR test intend ed for the qualitative detection of nucleic acid from SARS-CoV-2 in a nasopharyn geal swab specimen collected from individuals suspected of COVID-19 by their [facility] provider.This test has not been Food and Drug Administration (FDA) clear ed or approved. This is a modified version of an approved Emergency Use Authori zation (EUA) and is in the process of review by the FDA. Once authorized by [facility] FDA, the issued EUA will be effective until the declaration that circumstances exist justifying the authorization of the emergency use of in vitro diagnostic tests for detection and/or diagnosis of COVID-19 is terminated under Section 564 (b)(2) of the Act or the EUA is revoked under Section 564(g) of the Act.Fact She et for Healthcare Providers:https://www.[employer]/sites/default/files/product/d ocuments/Gxra_Qxwjq_PD_Eawudokpw_Txny_JHSK-FpL-1.pdfFact Sheet for Healthcare Pa chris:https://www.[employer]/sites/default/files/product/documents/Fact_Sheet_P zwsgenw_Gwie_LYVX-JdG-6.pdfPerforming Laboratory:[facility] [address] [facility].[place], [place] [address]NTUSZ METABOLIC [id number] 08:09:00* Test Item Value Reference Range Interpretation Comments SODIUM (BEAKER) (test code = 381) 137 meq/L 136-145 POTASSIUM (BEAKER) (test code = 379) 3.8 meq/L 3.5-5.1 CHLORIDE (BEAKER) (test code = 382) 104 meq/L 98-107 CO2 (BEAKER) (test code = 355) 23 meq/L 22-29 BLOOD UREA NITROGEN (BEAKER) (test code = 354) 21 mg/dL 7-21 CREATININE (BEAKER) (test code = 358) 0.82 mg/dL 0.57-1.25 GLUCOSE RANDOM (BEAKER) (test code = 652) 94 mg/dL 70-105 CALCIUM (BEAKER) (test code = 697) 8.6 mg/dL 8.4-10.2 EGFR (BEAKER) (test code = 1092) 92 mL/min/1.73 sq m ESTIMATED GFR IS NOT ACCURATE CREATININE CLEARANCE IN PREDICTING GLOMERULAR FILTRATION RATE. ESTIMATED GFR IS NOT APPLICABLE FOR DIALYSIS PATIENTS. Sizing Machine And Drier Operator ID - PIAYA LSpecimen slightly ictericECG 12 [id number] 06:35:46 Interface, External Ris In - 05/14/2020 6:35 AM CDTVentricular Rate 66 BPMAtria l Rate 66 BPMP-R Interval 208 msQRS Duration 90 msQ-T Interval 426 msQTC Calcula tion(Bazett) 446 msP [place] 39 degreesR [place] -9 degreesT [place] 176 degreesNormal si nus rhythmPossible Left atrial enlargementAnterior infarct (cited on or before 2 23-APR-2020)T wave abnormality, consider lateral ischemiaAbnormal ECGWhen compare d with ECG of 14-JUN-2011 10:24,Serial changes of Anterior infarct PresentConfir med by MD GREG, PAUL Olvera ([id number]) on 05/14/2020 6:35:40 [facility] W/PLT COUNT & AUTO [id number] 05:59:00* Test Item Value Reference Range Interpretation Comments WHITE BLOOD CELL COUNT (BEAKER) (test code = 775) 5.5 K/ L 3.5- 10.5 RED BLOOD CELL COUNT (BEAKER) (test code = 761) 4.58 M/ L 4.63-6 .08 L HEMOGLOBIN (BEAKER) (test code = 410) 12.1 GM/DL 13.7-17.5 L HEMATOCRIT (BEAKER) (test code = 411) 37.4 % 40.1-51.0 L MEAN CORPUSCULAR VOLUME (BEAKER) (test code = 753) 81.7 fL 79. 0-92.2 MEAN CORPUSCULAR HEMOGLOBIN (BEAKER) (test code = 751) 26.4 pg 25.7-32.2 MEAN CORPUSCULAR HEMOGLOBIN CONC (BEAKER) (test code = 752) 32.4 GM/DL 32.3-36.5 RED CELL DISTRIBUTION WIDTH (BEAKER) (test code = 412) 16.8 % 11.6-14.4 H PLATELET COUNT (BEAKER) (test code = 756) 11 K/CU MM 150-450 L MEAN PLATELET VOLUME (BEAKER) (test code = 754) Unable to report due to abnormal Platelet population distribution. NUCLEATED RED BLOOD CELLS (BEAKER) (test code = 413) 1 /100 WBC 0 -0 H NEUTROPHILS RELATIVE PERCENT (BEAKER) (test code = 429) 75 % LYMPHOCYTES RELATIVE PERCENT (BEAKER) (test code = 430) 2 % MONOCYTES RELATIVE PERCENT (BEAKER) (test code = 431) 22 % EOSINOPHILS RELATIVE PERCENT (BEAKER) (test code = 432) 0 % BASOPHILS RELATIVE PERCENT (BEAKER) (test code = 437) 0 % NEUTROPHILS ABSOLUTE COUNT (BEAKER) (test code = 670) 4.15 K/ L 1.78-5.38 LYMPHOCYTES ABSOLUTE COUNT (BEAKER) (test code = 414) 0.11 K/ L 1.32-3.57 L MONOCYTES ABSOLUTE COUNT (BEAKER) (test code = 415) 1.24 K/ L 0. 30-0.82 H EOSINOPHILS ABSOLUTE COUNT (BEAKER) (test code = 416) 0.00 K/ L 0.04-0.54 L BASOPHILS ABSOLUTE COUNT (BEAKER) (test code = 417) 0.01 K/ L 0. 01-0.08 IMMATURE GRANULOCYTES-RELATIVE PERCENT (BEAKER) (test code = 2801) 1 % 0-1 CT, CHEST WITH IV CONTRAST- PE TEST [id number] 21:47:00Reason for exam:-> GENERALIZED WEAKNESS, NOT ASSOCIATED WITH EXTREMITIESReason for exam:->SHORTNESS OF BREATHWhat is the patient's sedation requirement?->No SedationAddendum BeginsREPORT STATUS:A Findings discussed with the patient's care provider, JANINE MAIN MD, on 2020 9:46 PM. Si gned: Brayden, Oscar MDReport Verified Date/Time: 2020 21:47:[address], CHEST WITH IV CONTRAST- PE TEST REMY IGN INDICATION: PE suspected, high pretest probGENERALIZED WEAKNESS, NOT ASSOCIA DEVYN WITH EXTREMITIESSHORTNESS OF BREATH COMPARISON: None TECHNIQUE: Contrast enh anced CT examination of the chest in the pulmonary arterial phase from the bases to the apices. Orthogonal reformatted images as well as coronal maximum intensi ty projection images were obtained. DOSE REDUCTION: Dose modulation, iterative reconstruction, and/or weight-based adjustment of the mA/kV was utilized to redu ce the radiation dose to as low as reasonably achievable. FINDINGS: Lungs and pl eura: No consolidation. Small bilateral pleural effusions left greater than righ t basilar parenchymal opacities. Left upper lobe calcified granuloma.Central air ways: Patent.Mediastinum: Subcarinal 2 cm x 1 cm lymph node.Heart and pericardiu m: Normal heart size. There is straightening of the intraventricular septum, RV/ LV ratio is 1. Trace pericardial effusion. Great vessels: Normal calibers.Pulmon byron embolism: Small linear filling defect within the left lower lobe segmental a nd subsegmental pulmonary arteries. Regional skeletal structures: Intact. Includ ed upper abdomen: Ascites. Splenomegaly. Additional findings: None. IMPRESSION:S mall nonocclusive segmental and subsegmental pulmonary emboli within left lower lobe pulmonary artery. Left lung base consolidation; possibly pulmonary infarct, pneumonia or atelectasis. Small bilateral pleural effusions with minimal right lung base compressive atelectasis. Ascites, splenomegaly. Signed: Brooklyn Marrero Verified Date/Time: 2020 21:41:36 chest PE test design 2020 21:41:00Interface, External Ris In - 2020 9:49 PM CDTAddendum BeginsREPORT STATUS:A Findings discussed with the patient's care provider, JANINE MAIN MD, on 2020 9:46 PM. Signed: Oscar Marrero Verified Date/Time: 2020 21:47:[address], CHEST WITH IV CONTRAST- PE TEST DESIGN INDICATION: PE suspected, high pretest probGENERALIZED WEAKNESS, NOT ASSOCIATED WITH EXTREMITIESSHORTNESS OF BREATH COMPARISON: None TECHNIQUE: Contrast enhanced [...] basilar parenchymal opacities. Left upper lobe calcified granuloma.Central airways: Patent.Mediastinum: Subcarinal 2 cm x 1 cm lymph node.Heart and pericardium: Normal heart size. There is straightening of the intraventricular septum, RV/LV ratio is 1. Trace pericar dial effusion. Great vessels: Normal calibers.Pulmonary embolism: Small linear f illing defect within the left lower lobe segmental and subsegmental pulmonary ar teries. Regional skeletal structures: Intact. Included upper abdomen: Ascites. S plenomegaly. Additional findings: None. IMPRESSION:Small nonocclusive segmental and subsegmental pulmonary emboli within left lower lobe pulmonary artery. Left lung base consolidation; possibly pulmonary infarct, pneumonia or atelectasis. S mall bilateral pleural effusions with minimal right lung base compressive atelec tasis. Ascites, splenomegaly. Signed: Oscar Marrero MDReport Verified Date/Sheldon e: 2020 21:41:36 Electronically signed by: MD sherry WALL 2020 09:47 PM [facility] CenterL[facility] acid, venous TIMED 2020 20:00:00* Test Item Value Reference Range Interpretation Comments Lactate, Venous (test code = 2872) 1.71 mmol/L 0.5-2.2 REGINALDO (test code = REGINALDO) Sizing Machine And Drier Operator ID - BS Lab Interpretation (test code = 35757-6) [facility], [id number] 20:00:00* Test Item Value Reference Range Interpretation Comments LACTATE BLOOD VENOUS (2) (BEAKER) (test code = 2872) 1.71 mmol/L 0 .50-2.20 Sizing Machine And Drier Operator ID - BSComprehensive metabolic [id number] 18:54:00* Test Item Value Reference Range Interpretation Comments Protein, Total (test code = 2885-2) 5.2 6.0- 8.3 gm/dL L Albumin (test code = 41818-9) 2.9 g/dL 3.5-5 L Alkaline Phosphatase (test code = 6768-6) 191 U/L 40-150 H Total Bilirubin (test code = 1975-2) 1.8 mg/dL 0.2-1.2 H Sodium (test code = 2951-2) 133 meq/L 136-145 L Potassium (test code = 2823-3) 3.8 meq/L 3.5-5.1 Chloride (test code = 2075-0) 102 meq/L 98-107 CO2 (test code = 8-9) 27 meq/L 22-29 BUN (test code = 3094-0) 24 mg/dL 7-21 H Creatinine (test code = 2160-0) 0.96 mg/dL 0.57-1.25 Glucose (test code = 2345-7) 115 mg/dL 70-105 H Calcium (test code = 56441-5) 9.1 mg/dL 8.4-10.2 AST (test code = 1920-8) 58 U/L 5-34 H ALT (test code = 1742-6) 38 U/L 6-55 EGFR (test code = 98374-4) I NSUFFICIENT CLINICAL DATA TO CALCULATE ESTIMATED GFR. REGINALDO (test code = REGINALDO) Sizing Machine And Drier Operator ID - BS Lab Interpretation (test code = 26231-2) [facility]normal [facility] [id number] 18:54:00* Test Item Value Reference Range Interpretation Comments TOTAL PROTEIN (BEAKER) (test code = 770) 5.2 gm/dL 6.0-8.3 L ALBUMIN (BEAKER) (test code = 1145) 2.9 g/dL 3.5-5.0 L ALKALINE PHOSPHATASE (BEAKER) (test code = 346) 191 U/L 40-150 H BILIRUBIN TOTAL (BEAKER) (test code = 377) 1.8 mg/dL 0.2-1.2 H SODIUM (BEAKER) (test code = 381) 133 meq/L 136-145 L POTASSIUM (BEAKER) (test code = 379) 3.8 meq/L 3.5-5.1 CHLORIDE (BEAKER) (test code = 382) 102 meq/L 98-107 CO2 (BEAKER) (test code = 355) 27 meq/L 22-29 BLOOD UREA NITROGEN (BEAKER) (test code = 354) 24 mg/dL 7-21 H CREATININE (BEAKER) (test code = 358) 0.96 mg/dL 0.57-1.25 GLUCOSE RANDOM (BEAKER) (test code = 652) 115 mg/dL 70-105 H CALCIUM (BEAKER) (test code = 697) 9.1 mg/dL 8.4-10.2 AST (SGOT) (BEAKER) (test code = 353) 58 U/L 5-34 H ALT (SGPT) (BEAKER) (test code = 347) 38 U/L 6-55 EGFR (BEAKER) (test code = 1092) INSUFFICIENT CLINICAL DATA TO CALCULATE ESTIMATED GFR. Sizing Machine And Drier Operator ID - BSLACTIC ACID, [id number] 18:34:00* Test Item Value Reference Range Interpretation Comments LACTATE BLOOD VENOUS (2) (BEAKER) (test code = 2872) 2.27 mmol/L 0 .50-2.20 H Sizing Machine And Drier Operator ID - [id number] 18:28:00* Test Item Value Reference Range Interpretation Comments PARTIAL THROMBOPLASTIN TIME (BEAKER) (test code = 760) 32.1 seconds 22.5-36.0 Prothrombin time/[id number] 18:27:00* Test Item Value Reference Range Interpretation Comments Protime (test code = 5902-2) 15.8 11.9- 14.2 seconds H INR (test code = 6301-6) 1.30 <=5.90 REGINALDO (test code = REGINALDO) Effective 01/16/2019: PT Refe rence Range ChangeNew: 11.9- 14.2 Previous: 11.7-14.7 RECOMMENDED COUMADIN/WARFARIN INR THERAPY RANGESSTANDARD DOSE: 2.0-3.0 Includes: PROPHYLAXIS for venous thrombosis, sys temic embolization; TREATMENT for venous thrombosis and/or pulmonary embolus.HIGH RISK: Target INR is 2.5-3.5 for patients wiht mechanical heart valves. Lab Interpretation (test code = 63629-0) [facility]normal [facility] TIME/[id number] 18:27:00* Test Item Value Reference Range Interpretation Comments PROTIME (BEAKER) (test code = 759) 15.8 seconds 11.9-14.2 H INR (BEAKER) (test code = 370) 1.30 <=5.90 Effective 01/16/2019: PT Reference Range ChangeNew: 11.9-14.2 Previous: 11.7-14. 7RECOMMENDED COUMADIN/WARFARIN INR THERAPY RANGESSTANDARD DOSE: 2.0-3.0 Include s: PROPHYLAXIS for venous thrombosis, systemic embolization; TREATMENT for venou s thrombosis and/or pulmonary embolus.HIGH RISK: Target INR is 2.5-3.5 for patie nts wiht mechanical heart valves.CBC W/PLT COUNT & AUTO [id number] 18:26:00* Test Item Value Reference Range Interpretation Comments WHITE BLOOD CELL COUNT (BEAKER) (test code = 775) 7.8 K/ L 3.5- 10.5 RED BLOOD CELL COUNT (BEAKER) (test code = 761) 4.89 M/ L 4.63-6 .08 HEMOGLOBIN (BEAKER) (test code = 410) 12.9 GM/DL 13.7-17.5 L HEMATOCRIT (BEAKER) (test code = 411) 40.5 % 40.1-51.0 MEAN CORPUSCULAR VOLUME (BEAKER) (test code = 753) 82.8 fL 79. 0-92.2 MEAN CORPUSCULAR HEMOGLOBIN (BEAKER) (test code = 751) 26.4 pg 25.7-32.2 MEAN CORPUSCULAR HEMOGLOBIN CONC (BEAKER) (test code = 752) 31.9 GM/DL 32.3-36.5 L RED CELL DISTRIBUTION WIDTH (BEAKER) (test code = 412) 16.7 % 11.6-14.4 H PLATELET COUNT (BEAKER) (test code = 756) 11 K/CU MM 150-450 L MEAN PLATELET VOLUME (BEAKER) (test code = 754) Unable to report due to abnormal Platelet population distribution. NUCLEATED RED BLOOD CELLS (BEAKER) (test code = 413) 2 /100 WBC 0 -0 H NEUTROPHILS RELATIVE PERCENT (BEAKER) (test code = 429) 80 % LYMPHOCYTES RELATIVE PERCENT (BEAKER) (test code = 430) 1 % MONOCYTES RELATIVE PERCENT (BEAKER) (test code = 431) 19 % EOSINOPHILS RELATIVE PERCENT (BEAKER) (test code = 432) 0 % BASOPHILS RELATIVE PERCENT (BEAKER) (test code = 437) 0 % NEUTROPHILS ABSOLUTE COUNT (BEAKER) (test code = 670) 6.26 K/ L 1.78-5.38 H LYMPHOCYTES ABSOLUTE COUNT (BEAKER) (test code = 414) 0.05 K/ L 1.32-3.57 L MONOCYTES ABSOLUTE COUNT (BEAKER) (test code = 415) 1.45 K/ L 0. 30-0.82 H EOSINOPHILS ABSOLUTE COUNT (BEAKER) (test code = 416) 0.00 K/ L 0.04-0.54 L BASOPHILS ABSOLUTE COUNT (BEAKER) (test code = 417) 0.01 K/ L 0. 01-0.08 IMMATURE GRANULOCYTES-RELATIVE PERCENT (BEAKER) (test code = 2801) 1 % 0-1 RAD, CHEST, 1 VIEW, NON [id number] 17:59:00Reason for exam:->GENERALIZED WEAKNESS, NOT ASSOCIATED WITH EXTREMITIESReason for exam:->SHORTNESS OF BREATHShould this be performed at the bedside?->YesFINAL REPORT TECHNIQUE: Frontal view of the chest. INDICATION: GENERALIZED WEAKNESS, NOT ASSOCIATED WITH EXTREMITIESSHORTNESS OF BREATH COMPARISON:None. IMPRESSION:Lines and hardware: Right chest port catheter tip projects over the SVC.Heart and mediastinum: Calcific aorta.Lungs and pleura: Left basilar atelectasis versus patchy airspace opacity. Consider lateral view. No pleural effusion. No pneumothorax.Soft tissues and bones: No acute abnormality. Signed: Shawn Rodriguez MDReport Verified Date/Time: 2020 17:59:45 Reading Lo cation: [facility] B1 C013W Consult Reading Room chest 1 view portable / bedside 2020 17:59:00Interface, External Ris In - 2020 6:02 PM CDTFINAL REPORT TECHNIQUE: Frontal view of the chest. INDICATION: GENERALIZED WEAKNESS, NOT ASSOCIATED WITH EXTREMITIESSHORTNESS OF BREATH COMPARISON:None. IMPRESSION:Lines and hardware: Right chest port catheter tip projects over the SVC.Heart and mediastinum: Calcific aorta.Lungs and pleura: Left basilar atelectasis versus patchy airspace opacity. Consider lateral view. No pleural effusion. No pneumothorax.Soft tissues and bones: No acute abnormality. Signed: Shawn Rodriguez Verified Date/Time: 2020 17:59:45 Reading Location: [facility] C013W Consult Reading Room [facility]- XR SPINE 1 V SPEC [id number] 09:07:00 Patient Name: PIERRE PHILLIPS Unit No: [id number] EXAMS: CPT CODE: [id number] XR SPINE 1 V SPEC LEVEL 33741 3 LATERAL INTRAOPERATIVE VIEWS OF THE LUMBAR SPINE Film 1: Metal marker overlies the soft tissues posterior to L3-4. Film 2: Metal probe overlies the posterior elements at L5. Film 3: Metal probe overlies the posterior elements at L5. at 0907 Reported and signed by: Jess Wiley MD CC: Luz Calabrese Technologist: SUSAN CHAVEZ RT(R) Transcribed D/ (0907) [email or web address] [facility] NAME: PIERRE PHILLIPS [address] [facility] [address] PHYS: Catrachito Meyers MD : 1950 AGE: 69 SE X: M [place], [place] [address] LOC: Y.O22 A PHONE #: [phone] EXAM DATE: 02/25/2020 STATUS: ADM IN FAX #: [phone] RAD #: D/C DT PAGE 1 Signed Report Patient N jw: PIERRE PHILLIPS Unit No: [id number] EXAMS: CPT CODE: [id number] XR SPINE 1 V SPEC LEVEL 69909 <Continued> Orig Print D/T: S: 02/26/2020 (09) [facility] NAME: PIERRE PHILLIPS [address] [facility] PHYS: Jake Meyers MD : 1950 AGE: 69 SEX: M [place] [id number] LOC: Y.O22 A PHONE #: [phone] EXAM DATE: 02/25/2020 STATUS: ADM IN FAX #: [phone] RAD #: D/C DT PAGE 2 Signed Report - XR SPINE 1 V SPEC [id number] 09:07:00 Patient Name: PIERRE PHILLIPS Unit No: [id number] EXAMS: CPT CODE: [id number] XR SPINE 1 V SPEC LEVEL 00441 3 LATERAL INTRAOPERATIVE VIEWS OF THE LUMBAR SPINE Film 1: Metal marker overlies the soft tissues posterior to L3-4. Film 2: Metal probe overlies the posterior elements at L5. Film 3: Metal probe overlies the posterior elements at L5. at 0907 Reported and signed by: Jess Wiley MD CC: Jake Joseph M.D. Technologist: ANGELICA JOYCE (RT.R) Transcribed D/ (0907) Sami.GVG [facility] NAME: PIERRE PHILLIPS [address] [facility] PHYS: Jake Meyers MD : 1950 AGE: 69 SEX: M [place] [address] LOC: Y.O22 A PHONE #: [phone] EXAM DATE: 02/25/2020 STATUS: ADM IN FAX #: [phone] RAD #: D/C DT PAGE 1 Signed Report Patient Name: PIERRE PHILLIPS Unit No: [id number] EXAMS: CPT CODE: [id number] XR SPINE 1 V SPEC LEVEL 71646 <Continued> Orig Print D/T: S: 02/26/2020 (909) [facility] NAME: PIERRE PHILLIPS [address] [facility] PHYS: Jake Meyers MD : 1950 AGE: 69 SEX: Luz [place], [place] [address] LOC: YNoheliaO22 A PHONE #: [phone] EXAM DATE: 02/25/2020 STATUS: ADM IN FAX #: [phone] RAD #: D/C DT PAGE 2 Signed Report - XR SPINE 1 V SPEC [id number] 09:07:00 Patient Name: PIERRE PHILLIPS Unit No: [id number] EXAMS: CPT CODE: [id number] XR SPINE 1 V SPEC LEVEL 21018 3 LATERAL INTRAOPERA TIVE VIEWS OF THE LUMBAR SPINE Film 1: Metal marker overli es the soft tissues posterior to L3-4. Film 2: Metal probe overli es the posterior elements at L5. Film 3: Metal probe overlies the posterior elements at L5. at 0907 Reported and signed by: Jess Wiley MD CC: Luz Calabrese Technologist: ANGELICA JOYCE (RT.R) Transcribed D/ (0907) WilliamGVG [facility] NAME: PIERRE PHILLIPS [address] [facility] PHYS: Catrachito Meyers MD : 1950 AGE: 69 SE X: [place], [place] [address] LOC: Y.O22 A PHONE #: [phone] EXAM DATE: 02/25/2020 STATUS: ADM IN FAX #: [phone] RAD #: D/C DT PAGE 1 Signed Report Patient N jw: PIERRE PHILLIPS Unit No: [id number] EXAMS: CPT CODE: [id number] XR SPINE 1 V SPEC LEVEL 21811 <Continued> Orig Print D/T: S: 02/26/2020 (0910) [facility] NAME: PIERRE PHILLIPS [address] [facility] PHYS: Jake Meyers MD : 1950 AGE: 69 SEX: M [place], [place] [address] LOC: Lennox2 A PHONE #: [phone] EXAM DATE: 02/25/2020 STATUS: ADM IN FAX #: [phone] RAD #: D/C DT PAGE 2 Signed Report BASIC METABOLIC [id number] 06:48:00* Test Item Value Reference Range Interpretation Comments SODIUM (test code = NA) 143 mmol/L 136-145 N POTASSIUM (test code = K) 4.7 mmol/L 3.5-5.1 N CHLORIDE (test code = CL) 108.0 mmol/L 98-107 H CARBON DIOXIDE (test code = CO2) 27.5 mmol/L 21-32 N GLUCOSE (test code = GLU) 163 mg/dL 70-110 H BLOOD UREA NITROGEN (test code = BUN) 17 mg/dL 7-18 N GLOMERULAR FILTRATION RATE (test code = GFR) 66.7 >60 Unit of measure: mL/min/1.73 [id number] Range:Healthy Adults >90 mL/min/1.73 m2 For Chronic Kidney Disease: Stage II Mild Decrease in GFR 60-90 Stage III Moderate Decrease in GFR 30-59 Stage IV Severe Decrease in GFR 15-29 Stage V Kidney Failure <15 CREATININE (test code = CREAT) 1.09 mg/dL 0.55-1.30 N CALCIUM (test code = CA) 8.8 mg/dL 8.2-10.1 N Novel Coronavirus 2019 [id number] 23:12:00* Test Item Value Reference Range Interpretation Comments Novel Coronavirus 2019 Inhouse (test code = COVNONPUI) Negative Negative Novel Coronavirus 2019 [id number] 23:11:00* Test Item Value Reference Range Interpretation Comments Novel Coronavirus 2019 Inhouse (test code = COVNONPUI) Negative Negative CBC W/MANUAL [id number] 10:22:00* Test Item Value Reference Range Interpretation Comments WHITE BLOOD CELL (test code = WBC) 1.2 K/mm3 5.7-10.5 LL VERIFIED BY REPEAT ANALYSIS.CRITICAL VALUE CALLED TO LEONIDES HerringREAD BACK & CONFIRMED? FRANCISCO MENEZES.CD 02/10/20 2110RESULTS FAXED TO THE DOCTOR'S OFFICE. RED BLOOD CELL (test code = RBC) 4.72 M/mm3 4.2-5.4 N HEMOGLOBIN (test code = HGB) 13.0 g/dL 12-16 N HEMATOCRIT (test code = HCT) 41.2 % 37-47 N MEAN CELL VOLUME (test code = MCV) 87 fL 80-98 N MEAN CELL HGB (test code = MCH) 27.5 pg 27-34 N MEAN CELL HGB CONCENTRATION (test code = MCHC) 31.6 g/dL 30.8-34 .1 N RED CELL DISTRIBUTION WIDTH (test code = RDW) 17.1 % 11-16 H PLT (test code = PLT) 89 K/mm3 130-400 L STAIN ACCEPTABILITY (test code = STN ACCEPTABLE) STAIN ACCEPTABLE CELLS COUNTED (test code = TCC) 100 >100 SEGMENTED NEUTROPHILS (test code = SEG) 34 % 50-65 L LYMPHOCYTE (test code = LYMPH) 41 % 20-40 H ATYPICAL LYMPH (test code = ALYMPH) 2 % 0-3 N MONOCYTE (test code = MON) 17 % 2-9 HH EOSINOPHIL (test code = EOS) 6 % 1-3 H NUCLEATED RED BLOOD CELL (test code = NRBC) 0 % 0-0 N POIKILOCYTOSIS (test code = POIK) OCCASIONAL ANISOCYTOSIS (test code = ANISO) SLIGHT PATHOLOGIST REVIEW [id number] 10:22:00* Test Item Value Reference Range Interpretation Comments PATHOLOGIST REVIEW REQUIRED (test code = PATHH) CBC REVIEW-Normocytic normochromic RBC (Hgb : 13 g/dL, MCV : 87)-Marked leukopenia (WBC : 1200), no atypical cells orimmature cells seen-Thrombocytopenia (plt: 89k)Comment: Recommend clinical correlation, hematology consult and flowcytometry study if clinically indicated. Darlyn Santizo MD pathologist ACUTE HEPATITIS [id number] 23:12:00* Test Item Value Reference Range Interpretation Comments AB HEPATITIS A IGM (test code = HAVMAB) NONREACTIVE NONREACTIVE AG HEPATITIS B SURFACE (test code = HBSAG) NONREACTIVE NONREACTIVE AB HEPATITIS B CORE IGM (test code = HBCMAB) NONREACTIVE NONREACTI VE AB HEPATITIS C (test code = HCVAB) NONREACTIVE NONREACTIVE SIGNAL TO CUTOFF (test code = CUTOFF) <0.02 <0.80 N AB HIV 1 23:12:00* Test Item Value Reference Range Interpretation Comments AB HIV 1 2 (test code = PVN29XM) NONREACTIVE NONREACTIVE Done by [employer] 4[employer] HIV Ag/Ab Combo Screen ACUTE HEPATITIS [id number] 23:12:00* Test Item Value Reference Range Interpretation Comments AB HEPATITIS A IGM (test code = HAVMAB) NONREACTIVE NONREACTIVE AG HEPATITIS B SURFACE (test code = HBSAG) NONREACTIVE NONREACTIVE AB HEPATITIS B CORE IGM (test code = HBCMAB) NONREACTIVE NONREACTI VE AB HEPATITIS C (test code = HCVAB) NONREACTIVE NONREACTIVE SIGNAL TO CUTOFF (test code = CUTOFF) < 0.02 <0.80 AB HIV 23:12:00* Test Item Value Reference Range Interpretation Comments AB HIV 1 (test code = HIV1AB) NONREACTIVE NONREACTIVE Done by [employer]2M [employer] 4th Gen HIV Ag/Ab Combo Screen CBC W/MANUAL [id number] 21:17:00* Test Item Value Reference Range Interpretation Comments WHITE BLOOD CELL (test code = WBC) 1.2 K/mm3 5.7-10.5 LL VERIFIED BY REPEAT ANALYSIS.CRITICAL VALUE CALLED TO LEONIDES HerringREAD BACK & CONFIRMED? FRANCISCO CoeLAB.CD 02/10/20 2110RESULTS FAXED TO THE DOCTOR'S OFFICE. RED BLOOD CELL (test code = RBC) 4.72 M/mm3 4.2-5.4 N HEMOGLOBIN (test code = HGB) 13.0 g/dL 12-16 N HEMATOCRIT (test code = HCT) 41.2 % 37-47 N MEAN CELL VOLUME (test code = MCV) 87 fL 80-98 N MEAN CELL HGB (test code = MCH) 27.5 pg 27-34 N MEAN CELL HGB CONCENTRATION (test code = MCHC) 31.6 g/dL 30.8-34 .1 N RED CELL DISTRIBUTION WIDTH (test code = RDW) 17.1 % 11-16 H PLT (test code = PLT) 89 K/mm3 130-400 L STAIN ACCEPTABILITY (test code = STN ACCEPTABLE) STAIN ACCEPTABLE CELLS COUNTED (test code = TCC) 100 >100 SEGMENTED NEUTROPHILS (test code = SEG) 34 % 50-65 L LYMPHOCYTE (test code = LYMPH) 41 % 20-40 H ATYPICAL LYMPH (test code = ALYMPH) 2 % 0-3 N MONOCYTE (test code = MON) 17 % 2-9 HH EOSINOPHIL (test code = EOS) 6 % 1-3 H NUCLEATED RED BLOOD CELL (test code = NRBC) 0 % 0-0 N POIKILOCYTOSIS (test code = POIK) OCCASIONAL ANISOCYTOSIS (test code = ANISO) SLIGHT PATHOLOGIST REVIEW [id number] 21:17:00* Test Item Value Reference Range Interpretation Comments PATHOLOGIST REVIEW REQUIRED (test code = PATHH) CBC W/MANUAL [id number] 21:13:00* Test Item Value Reference Range Interpretation Comments WHITE BLOOD CELL (test code = WBC) 1.2 K/mm3 5.7-10.5 LL VERIFIED BY REPEAT ANALYSIS.CRITICAL VALUE CALLED TO LEONIDES HerringREAD BACK & CONFIRMED? FRANCISCO MENEZES.CD 02/10/20 2110RESULTS FAXED TO THE DOCTOR'S OFFICE. RED BLOOD CELL (test code = RBC) 4.72 M/mm3 4.2-5.4 N HEMOGLOBIN (test code = HGB) 13.0 g/dL 12-16 N HEMATOCRIT (test code = HCT) 41.2 % 37-47 N MEAN CELL VOLUME (test code = MCV) 87 fL 80-98 N MEAN CELL HGB (test code = MCH) 27.5 pg 27-34 N MEAN CELL HGB CONCENTRATION (test code = MCHC) 31.6 g/dL 30.8-34 .1 N RED CELL DISTRIBUTION WIDTH (test code = RDW) 17.1 % 11-16 H PLT (test code = PLT) 89 K/mm3 130-400 L STAIN ACCEPTABILITY (test code = STN ACCEPTABLE) STAIN ACCEPTABLE CELLS COUNTED (test code = TCC) 100 >100 SEGMENTED NEUTROPHILS (test code = SEG) 34 % 50-65 L LYMPHOCYTE (test code = LYMPH) 41 % 20-40 H ATYPICAL LYMPH (test code = ALYMPH) 2 % 0-3 N MONOCYTE (test code = MON) 17 % 2-9 HH EOSINOPHIL (test code = EOS) 6 % 1-3 H NUCLEATED RED BLOOD CELL (test code = NRBC) 0 % 0-0 N PATHOLOGIST REVIEW [id number] 21:13:00* Test Item Value Reference Range Interpretation Comments PATHOLOGIST REVIEW REQUIRED (test code = PATHH) CBC W/MANUAL [id number] 21:12:00* Test Item Value Reference Range Interpretation Comments WHITE BLOOD CELL (test code = WBC) 1.2 K/mm3 5.7-10.5 LL VERIFIED BY REPEAT ANALYSIS.CRITICAL VALUE CALLED TO LEONIDES HerringREAD BACK & CONFIRMED? FRANCISCO CoeLAB. 02/10/20 2110RESULTS FAXED TO THE DOCTOR'S OFFICE. RED BLOOD CELL (test code = RBC) 4.72 M/mm3 4.2-5.4 N HEMOGLOBIN (test code = HGB) 13.0 g/dL 12-16 N HEMATOCRIT (test code = HCT) 41.2 % 37-47 N MEAN CELL VOLUME (test code = MCV) 87 fL 80-98 N MEAN CELL HGB (test code = MCH) 27.5 pg 27-34 N MEAN CELL HGB CONCENTRATION (test code = MCHC) 31.6 g/dL 30.8-34 .1 N RED CELL DISTRIBUTION WIDTH (test code = RDW) 17.1 % 11-16 H PLT (test code = PLT) 89 K/mm3 130-400 L STAIN ACCEPTABILITY (test code = STN ACCEPTABLE) CELLS COUNTED (test code = TCC) >100 SEGMENTED NEUTROPHILS (test code = SEG) % 50-65 LYMPHOCYTE (test code = LYMPH) % 20-40 NUCLEATED RED BLOOD CELL (test code = NRBC) 0 % 0-0 N CBC W/AUTO [id number] 21:12:00* Test Item Value Reference Range Interpretation Comments WHITE BLOOD CELL (test code = WBC) 1.2 K/mm3 5.7-10.5 LL VERIFIED BY REPEAT ANALYSIS.CRITICAL VALUE CALLED TO LEONIDES HerringREAD BACK & CONFIRMED? FRANCISCO CoeLAB.CD 02/10/20 2110RESULTS FAXED TO THE DOCTOR'S OFFICE. RED BLOOD CELL (test code = RBC) 4.72 M/mm3 4.2-5.4 N HEMOGLOBIN (test code = HGB) 13.0 g/dL 12-16 N HEMATOCRIT (test code = HCT) 41.2 % 37-47 N MEAN CELL VOLUME (test code = MCV) 87 fL 80-98 N MEAN CELL HGB (test code = MCH) 27.5 pg 27-34 N MEAN CELL HGB CONCENTRATION (test code = MCHC) 31.6 g/dL 30.8-34 .1 N RED CELL DISTRIBUTION WIDTH (test code = RDW) 17.1 % 11-16 H PLT (test code = PLT) 89 K/mm3 130-400 L NEUTROPHIL % (test code = NT%) 28.5 % 45-70 L LYMPHOCYTE % (test code = LY%) 39.8 % 20-40 N MONOCYTE % (test code = MO%) 26.0 % 3-10 H EOSINOPHIL % (test code = EO%) 4.9 % 1-5 N BASOPHIL % (test code = BA%) 0.0 % 0.0-1.1 N NEUTROPHIL # (test code = NT#) 0.35 K/mm3 2.00-7.50 L LYMPHOCYTE # (test code = LY#) 0.49 K/mm3 1.50-4.00 L MONOCYTE # (test code = MO#) 0.32 K/mm3 0.2-0.8 N EOSINOPHIL # (test code = EO#) 0.06 K/mm3 0.04-0.4 N BASOPHIL # (test code = BA#) 0.00 K/mm3 0.02-0.10 L MANUAL DIFF REQUIRED (test code = MDIFF) YES MANUAL DIFF MANUAL DIFF REQUIRED. NUCLEATED RED BLOOD CELL (test code = NRBC) 0 % 0-0 N CBC W/MANUAL [id number] 21:12:00* Test Item Value Reference Range Interpretation Comments STAIN ACCEPTABILITY (test code = STN ACCEPTABLE) CELLS COUNTED (test code = TCC) >100 SEGMENTED NEUTROPHILS (test code = SEG) % 50-65 LYMPHOCYTE (test code = LYMPH) % 20-40 COMPREHENSIVE METABOLIC [id number] 20:41:00* Test Item Value Reference Range Interpretation Comments SODIUM (test code = NA) 146 mmol/L 136-145 H POTASSIUM (test code = K) 3.6 mmol/L 3.5-5.1 N CHLORIDE (test code = CL) 108.0 mmol/L 98-107 H CARBON DIOXIDE (test code = CO2) 31.9 mmol/L 21-32 N GLUCOSE (test code = GLU) 109 mg/dL 70-110 N BLOOD UREA NITROGEN (test code = BUN) 22 mg/dL 7-18 H GLOMERULAR FILTRATION RATE (test code = GFR) 72.0 >60 Unit of measure: mL/min/1.73 [id number] Range:Healthy Adults >90 mL/min/1.73 m2 For Chronic Kidney Disease: Stage II Mild Decrease in GFR 60-90 Stage III Moderate Decrease in GFR 30-59 Stage IV Severe Decrease in GFR 15-29 Stage V Kidney Failure <15 CREATININE (test code = CREAT) 1.02 mg/dL 0.55-1.30 N TOTAL PROTEIN (test code = PROT) 5.9 g/dL 6.4-8.2 L ALBUMIN (test code = ALB) 2.8 g/dL 3.4-5.0 L GLOBULIN (test code = GLOB) 3.1 g/dL 2.2-4.2 N ALBUMIN/GLOBULIN RATIO (test code = A/G) 0.9 0.7-2.0 N CALCIUM (test code = CA) 8.8 mg/dL 8.2-10.1 N BILIRUBIN TOTAL (test code = BILT) 0.80 mg/dL 0.2-1.00 N SGOT/AST (test code = AST) 55.0 U/L 15-37 H SGPT/ALT (test code = ALT) 54.0 U/L 12-78 N P lease note new normal range. ALKALINE PHOSPHATASE TOTAL (test code = ALKP) 259 U/L 46-116 H PROTHROMBIN [id number] 20:40:00* Test Item Value Reference Range Interpretation Comments PROTHROMBIN TIME PATIENT (test code = PTP) 11.5 secs 10.1-12.5 N INTERNATIONAL NORMAL RATIO (test code = INR) 1.03 <2.0 RECOMMENDED THERAPEUTIC RANGE FOR ORAL ANTICOAGULANTTREATMENT: CONDITION INRProphylaxis of venous thrombosis in 2.0 - 3.0 high-risk medical or surgical patientsTreatment of venous thrombosis 2.0 - 3.0Prevention of embolism 2.0 - 3.0Prevention of recurrent embolism, or 3.0 - 4.5 patients with mechanical prosthetic intravascular valves IS PATIENT ON ANTICOAGULANTS ? YLIST ANTICOAGULANT/ANTI PLT MEDICATION : OtherHa s Lab been notified if Patient is on Heparin Drip? NOTHROMBOPLASTIN TIME PARTIAL 2020-02-10 20:40:00* Test Item Value Reference Range Interpretation Comments PTT ACTIVATED (test code = APTT) 38.5 secs 24.9-37.0 H IS PATIENT ON ANTICOAGULANTS ? YLIST ANTICOAGULANT/ANTI PLT MEDICATION : OtherHa s Lab been notified if Patient is on Heparin Drip? [id number] 17:57:00Not Detected (6/11/20 12:57 PM)[facility]- XR FLUORO FOR SPINE INJ 2020-01-10 10:14:00 Patient Name: PIERRE PHILLIPS Unit No: [id number] EXAMS: CPT CODE: [id number] XR FLUORO FOR SPINE INJ [id number] LUMBAR TRANSFORAMINAL INJECTION REFERRING PHYSICIAN: PREOPERATIVE DIAGNOSIS: Degenerative Lumbar Disc Disease. POSTOPERATIVE DIAGNOSIS: Left lumbar radiculopathy PROCEDURES PERFORMED 1. Fluoroscopically guided needle localization of the left L3, left L4, left L5 spinal nerve/nerves with transforaminal epidural steroid injection/injections. 2. Transforaminal epidurogram/epidurograms at left L3, left L4, left L5. FINDINGS: Poor filling all. Concordant provocation left L5 hip, left L4 back. Pain relief-100%. ANTIBIOTIC: Cefazolin ESTIMATED BLOOD LOSS: Minimal ANESTHESIA: (TIVA )Total intravenous anesthetic (patient intolerant to sedatives and hypnotics) COMPLICATIONS: None DETAILS OF PROCEDURE: After obtaining stable vital signs, informed consent and IV access, with no known contraindications to proceeding, the patient was taken to the fluoroscopy suite and placed in a prone position with all extremities padded and appropriate monitors placed. A sterile prep and drape was performed over t he lumbosacral spine. Using fluoroscopic visualization at each lev el the insertion site was marked for a paravertebral approach to the janae en. Using standard technique, a 25 gauge needle was advanced to the base o f the pedicle. In AP view, final positioning was obtained outside the 6 on the clock position on the pedicle. Then, 1 ml of Isovue-300 contrast was injected to produce the epidurograms. No paresthesias were elicited with needle insertion or injection and there were no signs of intravascula r or intrathecal uptake. Then, with 1 ml of 4% lidocaine and 10 mg of tr iamcinolone was injected incrementally with frequent negative aspirations. There were no signs of intravascular or intrathecal uptake. Each subseque nt level was done using the same technique and medications. The patient's vital signs remained stable. The patient was taken to the PACU in good con dition. at 1 014 Reported and signed by: Darius Ogden M.D. [facility] NAME: PIERRE PHILLIPS [address] [facility] PHYS: Darius Garner MD [place] [address] : 1950 AGE: 69 SEX: M LOC: RENEE PHONE #: [phone] EXAM DATE: 01/09/2020 STATUS: [facility] FAX #: [phone] RAD #: D/C DT PAGE 1 Signed Report (CONTINUED) Patient Name: PIERRE PHILLIPS Unit No: [id number] EXAMS: CPT CODE: [id number] XR FLUORO FOR SPINE INJ [id number] <Continued> CC: Technologist: Thelma Loza(R) Transcribed D/ (1014) Jose [facility] NAME: PIERRE PHILLIPS HUMZA [address] [facility] PHYS: Darius Garner MD [place] [address] : 1950 AGE: 69 SEX: M LOC: RENEE PHONE #: [phone] EXAM DATE: 01/09/2020 STATUS: [facility] FAX #: [phone] RAD #: D/C DT PAGE 2 Signed Report Patient Name: PIERRE PHILLIPS Unit No: [id number] EXAMS: CPT CODE: [id number] XR FLUORO FOR SPINE INJ 92747 <Continued> Orig Print D/T: S: 01/10/2020 (1017) [facility] NAME: PIERRE PHILLIPS [address] [facility] PHYS: Darius Garner MD [place] [address] : 1950 AGE: 69 SEX: M LOC: RENEE PHONE #: [phone] EXAM DATE: 01/09/2020 STATUS: [facility] FAX #: [phone] RAD #: D/C DT PAGE 3 Signed Report - MRI L-SPINE W/O [id number] 10:18:00 Patient Name: PIERRE PHILLIPS Unit No: [id number] EXAMS: CPT CODE: [id number] MRI L-SPINE W/O CONT 47584 DIAGNOSIS: 1. At L1-2 there is a mild retrolisthesis and associated disc bulging with moderate left foraminal narrowing and mild right-sided stenosis. No central canal stenosis is seen. 2. At L2-3 there is a slight retrolisth esis with 2 mm of disc bulging in the foramina and mild bilateral foramina l narrowing. Mild narrowing of the central canal is seen with facet and l igamentum flavum hypertrophic and degenerative change. 3. At L3-4 t here is a mild retrolisthesis with 3 mm of disc bulging in the foramina. Moderate left and mild right foraminal narrowing is seen. Mild narrowing of the central canal is present with facet and ligamentum flavum hypertrop hic and degenerative change. 4. At L4-5 there is 4 mm of central disc pro trusion compressing the thecal sac and the exiting nerve roots. Moderate bilateral foraminal narrowing is present. There is marked central canal s tenosis with facet and ligamentum flavum hypertrophic and degenerative alvaro nge. 5. At L5-S1 there is no evidence for disc bulge or herniation, bony canal or foraminal stenosis. 6. Probable splenomegaly and possible hepatomegaly. Further evaluation by ultrasound is recommended if clinical ly indicated. COMMENT: COMPARISON: No prior exams av ailable. Scans were performed in the sagittal and axial planes uti lizing T1, T2 and inversion recovery images. Endplate and di sc degeneration is present at all levels except L5-S1. The L5-S1 disc is desiccated. Disc configurations are as described. Spondylitic changes are as noted. The conus is in the expected location. The description these fin dings assumes a normal count of 5 lumbar type vertebra. at 1018 Reported and signed by: Jose Babb MD CC: Darius Ogden MD Technologist: Dago Edwards(R) Transcribed D/ (1018) OsmelL [facility] NAME: PIERRE PHILLIPS [address] [facility] PHYS: DOCUD - Doctor,Darius Pearl MD : 1950 AGE: 69 SEX: M [place], [place] [address] LOC: Y.MRI PHONE #: EXAM DATE: 01/01/2020 STATUS: REG [facility] FAX #: [phone] RAD #: D/C DT PAGE 1 Signed Report Patient Name: PIERRE PHILLIPS Unit No: [id number] EXAMS: CPT CODE: [id number] MRI L-SPINE W/O CONT 83910 <Continued> Orig Print D/T: S: 01/01/2020 (1022) [facility] NAME: PIERRE PHILLIPS [address] [facility] PHYS: DOCUD - Doctor,Darius Pearl MD : 1950 AGE: 69 SEX: M [place], [place] [address] LOC: [facility] PHONE #: [phone] EXAM DATE: 01/01/2020 STATUS: [facility] FAX #: [phone] RAD #: D/C DT PAGE 2 Signed Report URINALYSIS [id number] 23:38:00* Test Item Value Reference Range Interpretation Comments UA COLOR (test code = COLU) CARLOS YEL/STRAW A UA APPEARANCE (test code = APPU) CLOUDY CLEAR A UA GLUCOSE DIPSTICK (test code = DGLUU) NEGATIVE NEGATIVE UA BILIRUBIN DIPSTICK (test code = BILU) NEGATIVE NEGATIVE UA KETONE DIPSTICK (test code = KETU) 1+ NEGATIVE A UA SPECIFIC GRAVITY (test code = SGU) 1.026 1.005-1.030 N UA BLOOD DIPSTICK (test code = DURGA) 3+ NEGATIVE A UA PH DIPSTICK (test code = JAMES) 5.0 5.0-7.0 N UA PROTEIN DIPSTICK (test code = PROU) 2+ NEGATIVE A UA UROBILINIOGEN DIPSTICK (test code = URO) 0.2 mg/dL 0.2-1.0 UA NITRITE DIPSTICK (test code = BERNIE) NEGATIVE NEGATIVE UA LEUKOCYTE ESTERASE DIPSTICK (test code = LEUU) NEGATIVE NEGA TIVE UA RBC (test code = RBCU) >50 RBC/HPF 0-3 A UA WBC NO REFLEX (test code = WBCUCL) 0-3 WBC/HPF 0-3 UA BACTERIA (test code = BACU) TRACE /HPF NONE SEEN UA SQUAMOUS CELLS (test code = SQU) NONE SEEN /HPF NONE SEEN UA MUCUS (test code = MUCU) 2+ /LPF NONE SEEN A - CT ABD PELVIS [id number] 23:12:00 Name: PIERRE PHILLIPS [facility] [place] : 1950 Age/S: 69 / M [address] [place] [address] Unit #: [id number] Loc: [place] [address] Phys: Patrizia Crews Acct: [id number] Dis Date: Status: REG ER PHONE #: [phone] Exam Date: 12/02/20192245 FAX #: [phone] Reason: LLQ pain EXAMS: CPT CODE: [id number] CT ABD PELVIS W/CONT 23587 CT ABDOMEN AND PELVIS WITH CONTRAST. INDICATION: Left lower quadrant abdominal pain for several days. COMPARISON: None. TECHNIQUE: Helical imaging was performed from the diaphragm through the pubic symphysis with multiplanar reformations obtained. DOSE: CT imaging performed at this location utilizes radiation dose optimization technique which includes one or more of the followin) Automated exposure control; 2) Adjustment of the mA and/or kV according to patient's size; 3) Use of iterative reconstruction techniques. DLP: 422 mGy-cm IV contrast: 100 mL Isovue-300 GI contrast: None FINDINGS: LOWER CHEST: Miniscule left pleural effusion present with compressive atelectasis. Minimal dependent atelectasis also seen in the right lung base. Coronary artery calcifications are present. PERITONEUM: No free abdominal air. Miniscule free fluid seen in the upper abdomen and pelvis. RETROPERITONEUM: The abdominal aorta is normal in caliber with moderate calcified plaque. No adenopathy identified. SOLID ORGANS: Multiple poorly circumscribed hypodense lesions in the liver predominantly in the right lobe measure up to 1.3 cm diameter. The gallbladder, spleen, pancreas, bilateral adrenal glands, and right kidney appear within normal limits. Very mild left hydronephrosis may be present. 4 mm calcification in the left ureterovesical junction or immediately adjacent is seen. PELVIS: The bladder is nearly empty. Prostate gland measures approximately 4.7 cm transverse dimension. BOWELS/APPENDIX: There are no abnor mehran dilated small or large bowel loops. The appendix is not identified. Colonic diverticulosis is present. MUSCULOSKELETAL: Degener ative changes are seen in the spine. PAGE 1 S igned Report (CONTINUED) Name: PIERRE PHILLIPS [facility] [place] : 1950 Age/S: 69 / M [address] [place] [address] Blvd Unit #: [id number] Loc: [place] [address] Phys: Patrizia Crews Acct: [id number] Dis Date: Status: REG ER PHONE #: [phone] Exam Date: 0 2245 FAX #: [phone] Reason: LLQ pain EXAMS: CPT CODE: [id number] CT ABD PELVIS W/CONT 94384 <Continued> IMPRESSION: 1. Very mild left hydronephrosis thought to be related to a ureterovesical junction calculus. Correlate with direct visualization or IVP as clinically indicated. 2. Few poorly circumscribed hepatic hypodense lesions. Metastatic disease is not excluded. 3. Aortic and coronary artery vascular calcifications. 4. Colonic diverticulosis. 5. Trace ascites. 6. Miniscule left pleural effusion. SL: TR-H at 2312 Reported and signed by: Tommie Miranda M.D. CC: Patrizia FORD Technologist:Jerica Galeas, RT(R)(CT) CTDI: DLP: Trnscb Date/Time: 12/02/2019 (2312) [email or web address] Orig Print D/T: S: 12/02/2019 (9306) PAGE 2 Signed Report CBC W/AUTO [id number] 22:45:00* Test Item Value Reference Range Interpretation Comments WHITE BLOOD CELL (test code = WBC) 2.35 x10 3/uL 4.5-11.0 L RED BLOOD CELL (test code = RBC) 4.63 x10 6/uL 4.00-5.60 N HEMOGLOBIN (test code = HGB) 13.3 g/dL 12.5-16.9 N HEMATOCRIT (test code = HCT) 41.5 % 37.5-50.7 N MEAN CELL VOLUME (test code = MCV) 89.6 fL 81.0-99.0 N MEAN CELL HGB (test code = MCH) 28.7 pg 27.0-33.0 N MEAN CELL HGB CONCETRATION (test code = MCHC) 32.0 g/dL 33.0-37. 0 L RED CELL DISTRIBUTION WIDTH CV (test code = RDW) 16.5 % 11.5- 14.5 H RED CELL DISTRIBUTION WIDTH SD (test code = RDW-SD) 54.6 fL 37 .0-54.0 H PLATELET COUNT (test code = PLT) 85 x10 3/uL 150-400 L IMMATURE PLATELET FRACTION (test code = IPF) 8.8 % 0.9-11.2 N MEAN PLATELET VOLUME (test code = MPV) 12.8 fL 7.0-9.0 H NEUTROPHIL % (test code = NT%) 64.7 % 56.0-77.0 N IMMATURE GRANULOCYTE % (test code = IG%) 0.0 % 0.0-2.0 N LYMPHOCYTE % (test code = LY%) 15.7 % 14.0-32.0 N MONOCYTE % (test code = MO%) 17.9 % 4.8-9.0 H EOSINOPHIL % (test code = EO%) 1.3 % 0.3-3.7 N BASOPHIL % (test code = BA%) 0.4 % 0.0-2.0 N NUCLEATED RBC % (test code = NRBC%) 0.0 % 0-0 N NEUTROPHIL # (test code = NT#) 1.52 x10 3/uL 2.0-7.6 L IMMATURE GRANULOCYTE # (test code = IG#) 0.00 x10 3/uL 0.00-0.03 N LYMPHOCYTE # (test code = LY#) 0.37 x10 3/uL 1.0-3.8 L MONOCYTE # (test code = MO#) 0.42 x10 3/uL 0.1-0.8 N EOSINOPHIL # (test code = EO#) 0.03 x10 3/uL 0.0-0.2 N BASOPHIL # (test code = BA#) 0.01 x10 3/uL 0.0-0.2 N NUCLEATED RBC # (test code = NRBC#) 0.00 x10 3/uL 0.0-0.1 N MANUAL DIFF REQUIRED (test code = MDIFF) NO PLT [id number] 22:45:00* Test Item Value Reference Range Interpretation Comments PLATELET ESTIMATE (test code = PLTEST) 68-85 THOUSAND ADEQUATE PLATELET MORPHOLOGY (test code = PLTMORPH) LARGE PLATELETS BASIC METABOLIC [id number] 22:15:00* Test Item Value Reference Range Interpretation Comments SODIUM (test code = NA) 140 mEq/L 134-147 N POTASSIUM (test code = K) 3.7 mEq/L 3.4-5.0 N CHLORIDE (test code = CL) 106 mEq/L 100-108 N CARBON DIOXIDE (test code = CO2) 29 mEq/L 21-33 N ANION GAP (test code = GAP) 9 0-20 N GLUCOSE (test code = GLU) 109 mg/dL 70-110 N BLOOD UREA NITROGEN (test code = BUN) 17 mg/dL 7-18 N GLOMERULAR FILTRATION RATE (test code = GFR) 50.0 70-80 L Units of measure = ml/min/1.73 m2 CREATININE (test code = CREAT) 1.4 mg/dL 0.6-1.3 H CALCIUM (test code = CA) 9.5 mg/dL 8.0-10.5 N HEPATIC FUNCTION [id number] 22:15:00* Test Item Value Reference Range Interpretation Comments TOTAL PROTEIN (test code = PROT) 6.9 g/dL 6.4-8.2 N ALBUMIN (test code = ALB) 2.90 g/dL 3.4-5.0 L BILIRUBIN TOTAL (test code = BILT) 1.1 MG/DL <1.5 N BILIRUBIN DIRECT (test code = BILD) 0.30 MG/DL 0.0-0.30 N BILIRUBIN INDIRECT (test code = BILIND) 0.80 MG/DL SGOT/AST (test code = AST) 53 IUnit/L 15-37 H SGPT/ALT (test code = ALT) 48 IUnit/L 15-65 N ALKALINE PHOSPHATASE TOTAL (test code = ALKP) 196 IUnit/L 20-125 H [id number] 22:15:00* Test Item Value Reference Range Interpretation Comments LIPASE (test code = LIP) 248 IUnit/L 73-393 N BASIC METABOLIC [id number] 22:14:00* Test Item Value Reference Range Interpretation Comments SODIUM (test code = NA) 140 mEq/L 134-147 N POTASSIUM (test code = K) 3.7 mEq/L 3.4-5.0 N CHLORIDE (test code = CL) 106 mEq/L 100-108 N CARBON DIOXIDE (test code = CO2) 29 mEq/L 21-33 N ANION GAP (test code = GAP) 9 0-20 N GLUCOSE (test code = GLU) 109 mg/dL 70-110 N BLOOD UREA NITROGEN (test code = BUN) 17 mg/dL 7-18 N GLOMERULAR FILTRATION RATE (test code = GFR) 70-80 CREATININE (test code = CREAT) mg/dL 0.6-1.3 CALCIUM (test code = CA) 9.5 mg/dL 8.0-10.5 N HEPATIC FUNCTION [id number] 22:14:00* Test Item Value Reference Range Interpretation Comments TOTAL PROTEIN (test code = PROT) g/dL 6.4-8.2 ALBUMIN (test code = ALB) g/dL 3.4-5.0 BILIRUBIN TOTAL (test code = BILT) MG/DL <1.5 BILIRUBIN DIRECT (test code = BILD) MG/DL 0.0-0.30 SGOT/AST (test code = AST) IUnit/L 15-37 SGPT/ALT (test code = ALT) IUnit/L 15-65 ALKALINE PHOSPHATASE TOTAL (test code = ALKP) IUnit/L 20-125 [id number] 22:14:00* Test Item Value Reference Range Interpretation Comments LIPASE (test code = LIP) 248 IUnit/L 73-393 N CBC W/AUTO [id number] 22:08:00* Test Item Value Reference Range Interpretation Comments WHITE BLOOD CELL (test code = WBC) 2.35 x10 3/uL 4.5-11.0 L RED BLOOD CELL (test code = RBC) 4.63 x10 6/uL 4.00-5.60 N HEMOGLOBIN (test code = HGB) 13.3 g/dL 12.5-16.9 N HEMATOCRIT (test code = HCT) 41.5 % 37.5-50.7 N MEAN CELL VOLUME (test code = MCV) 89.6 fL 81.0-99.0 N MEAN CELL HGB (test code = MCH) 28.7 pg 27.0-33.0 N MEAN CELL HGB CONCETRATION (test code = MCHC) 32.0 g/dL 33.0-37. 0 L RED CELL DISTRIBUTION WIDTH CV (test code = RDW) 16.5 % 11.5- 14.5 H RED CELL DISTRIBUTION WIDTH SD (test code = RDW-SD) 54.6 fL 37 .0-54.0 H PLATELET COUNT (test code = PLT) 85 x10 3/uL 150-400 L IMMATURE PLATELET FRACTION (test code = IPF) 8.8 % 0.9-11.2 N MEAN PLATELET VOLUME (test code = MPV) 12.8 fL 7.0-9.0 H NEUTROPHIL % (test code = NT%) 64.7 % 56.0-77.0 N IMMATURE GRANULOCYTE % (test code = IG%) 0.0 % 0.0-2.0 N LYMPHOCYTE % (test code = LY%) 15.7 % 14.0-32.0 N MONOCYTE % (test code = MO%) 17.9 % 4.8-9.0 H EOSINOPHIL % (test code = EO%) 1.3 % 0.3-3.7 N BASOPHIL % (test code = BA%) 0.4 % 0.0-2.0 N NUCLEATED RBC % (test code = NRBC%) 0.0 % 0-0 N NEUTROPHIL # (test code = NT#) 1.52 x10 3/uL 2.0-7.6 L IMMATURE GRANULOCYTE # (test code = IG#) 0.00 x10 3/uL 0.00-0.03 N LYMPHOCYTE # (test code = LY#) 0.37 x10 3/uL 1.0-3.8 L MONOCYTE # (test code = MO#) 0.42 x10 3/uL 0.1-0.8 N EOSINOPHIL # (test code = EO#) 0.03 x10 3/uL 0.0-0.2 N BASOPHIL # (test code = BA#) 0.01 x10 3/uL 0.0-0.2 N NUCLEATED RBC # (test code = NRBC#) 0.00 x10 3/uL 0.0-0.1 N MANUAL DIFF REQUIRED (test code = MDIFF) NO PLT [id number] 22:08:00* Test Item Value Reference Range Interpretation Comments PLATELET ESTIMATE (test code = PLTEST) THOUSAND ADEQUATE CBC W/AUTO [id number] 22:08:00* Test Item Value Reference Range Interpretation Comments WHITE BLOOD CELL (test code = WBC) 2.35 x10 3/uL 4.5-11.0 L RED BLOOD CELL (test code = RBC) 4.63 x10 6/uL 4.00-5.60 N HEMOGLOBIN (test code = HGB) 13.3 g/dL 12.5-16.9 N HEMATOCRIT (test code = HCT) 41.5 % 37.5-50.7 N MEAN CELL VOLUME (test code = MCV) 89.6 fL 81.0-99.0 N MEAN CELL HGB (test code = MCH) 28.7 pg 27.0-33.0 N MEAN CELL HGB CONCETRATION (test code = MCHC) 32.0 g/dL 33.0-37. 0 L RED CELL DISTRIBUTION WIDTH CV (test code = RDW) 16.5 % 11.5- 14.5 H RED CELL DISTRIBUTION WIDTH SD (test code = RDW-SD) 54.6 fL 37 .0-54.0 H PLATELET COUNT (test code = PLT) 85 x10 3/uL 150-400 L IMMATURE PLATELET FRACTION (test code = IPF) 8.8 % 0.9-11.2 N MEAN PLATELET VOLUME (test code = MPV) 12.8 fL 7.0-9.0 H NEUTROPHIL % (test code = NT%) 64.7 % 56.0-77.0 N IMMATURE GRANULOCYTE % (test code = IG%) 0.0 % 0.0-2.0 N LYMPHOCYTE % (test code = LY%) 15.7 % 14.0-32.0 N MONOCYTE % (test code = MO%) 17.9 % 4.8-9.0 H EOSINOPHIL % (test code = EO%) 1.3 % 0.3-3.7 N BASOPHIL % (test code = BA%) 0.4 % 0.0-2.0 N NUCLEATED RBC % (test code = NRBC%) 0.0 % 0-0 N NEUTROPHIL # (test code = NT#) 1.52 x10 3/uL 2.0-7.6 L IMMATURE GRANULOCYTE # (test code = IG#) 0.00 x10 3/uL 0.00-0.03 N LYMPHOCYTE # (test code = LY#) 0.37 x10 3/uL 1.0-3.8 L MONOCYTE # (test code = MO#) 0.42 x10 3/uL 0.1-0.8 N EOSINOPHIL # (test code = EO#) 0.03 x10 3/uL 0.0-0.2 N BASOPHIL # (test code = BA#) 0.01 x10 3/uL 0.0-0.2 N NUCLEATED RBC # (test code = NRBC#) 0.00 x10 3/uL 0.0-0.1 N MANUAL DIFF REQUIRED (test code = MDIFF) NO PLT [id number] 22:08:00* Test Item Value Reference Range Interpretation Comments PLATELET ESTIMATE (test code = PLTEST) THOUSAND ADEQUATE URINE [id number] 17:50:[facility] [id number] 17:50:00 3000[facility] [id number] 17:50:0024 (10/11/19 11:50 AM)[facility] [id number] 17:50:79875Reyzukgt HermannCHEM [id number] 10:53:002.4[facility]ann[facility]M [id number] 10:53:41560Vzykipqh HermannCHEM [id number] 10:53:0014[facility] [id number] 10:53:001.17 [facility] [id number] 10:53:43133Jmvtxuco HermannCHEM PANEL 2019-10-11 10:53:003.8[facility]annCHEM [id number] 10:53:55102Bppacqbb HermannCHEM [id number] 10:53:0029[facility] VBCSY1176-12-00 10:53:009.3[facility]annCHEM [id number] 10:53:009.8[facility]annCHEM [id number] 10:53:0062[facility]annCHE[facility] EVQSH6024-29-33 10:53:005.2 [facility] [id number] 10:53:002.5[facility]annCHEM PANEL 2019-10-11 10:53:0071[facility]annCHE[facility] [id number] 10:53:0060[facility] [id number] 10:53:33708Djtuezfx [facility]annCHE[facility] RXLFI2272-74-38 10:53:001.4[facility]annCHE[facility] [id number] 10:53:000.5[facility]CHE[facility] UFIJN3994-28-49 10:53:002.7[facility]annCHEM [id number] 10:53:00* Test Item Value Reference Range Interpretation Comments A/G Ratio (test code = A/G Ratio) 0.9 1 0.7-1.6 [facility] [id number] 10:53:000.9[facility]annCHEM PANEL 2019-10-11 10:53:73449Nylyhamr HermannCHEM [id number] 10:53:0015[facility]CHE[facility] FEUJP9760-33-58 10:53:001.21[facility]annCHE[facility] REINN0773-64-55 10:53:50791Uexdxezq [facility]annCHEM HSHFN9334-00-82 10:53:003.9[facility]annCHE[facility] [id number] 10:53:52128Cfclxrgl HermannCHEM [id number] 10:53:0030 [facility] [id number] 10:53:008.8[facility]annCHEM PANEL 2019-10-11 10:53:005.2[facility]ann[facility] [id number] 10:53:002.4[facility]annCHE[facility] FIPIZ9872-94-42 10:53:0071[facility]CHE[facility] UDPZX2144-07-68 10:53:0065[facility]annCHE[facility] UZZTN0866-79-44 10:53:07729Qrsitjqi HermannCHEM AJCBV9795-51-08 10:53:001.5[facility]annCHE[facility] [id number] 10:53:008.9 [facility] [id number] 10:53:00* Test Item Value Reference Range Interpretation Comments B/C Ratio (test code = B/C Ratio) 12 1 6-25 [facility] [id number] 10:53:002.8[facility]annCHEM PANEL 2019-10-11 10:53:00* Test Item Value Reference Range Interpretation Comments A/G Ratio (test code = A/G Ratio) 0.9 1 0.7-1.6 [facility] [id number] 10:53:0060[facility]annHEMATOLOGY 2019-10-11 10:53:0042.7[facility] JbxrlxcLUPMMPACBB0643-89-08 10:53:0033.1[facility] WctxzypDIDZRPIYSW9582-75-89 10:53:0017.3[facility] LpdsziiCLUKVRTZZL9645-61-37 10:53:006.3[facility] DepjvqfSEGWAOGIAK6815-52-07 10:53:000.6[facility] YYBNJEFGFE6100-92-41 10:53:000.9[facility] BchridtIBZTOOJPKO4608-16-24 10:53:000.7 [facility] ExfomtuXKOXKOZGOP0220-53-32 10:53:000.4[facility]annHEMATOLOGY 2019-10-11 10:53:000.1[facility] YulniwzMWMVWRHIMM2097-51-90 10:53:002.1[facility] NqblgyrOBETTFCEEL0873-35-43 10:53:004.72[facility] FisyjvpFFWNUQYUWC2207-73-64 10:53:0013.6[facility] MbsyokcKOJCXRIHBV4189-98-19 10:53:0041.1[facility] GBQIVNPFDI1131-27-68 10:53:0087.1[facility] OujcpuoYILTFEJQXO3788-62-12 10:53:00* Test Item Value Reference Range Interpretation Comments MCH (test code = MCH) 28.9 pg 27.0-31.0 [facility] WxwqmwrDKHTZOMOHQ7231-96-24 10:53:0033.2[facility]annHEMATOLOGY 2019-10-11 10:53:0017.7[facility] HzmfnwaKIMPOZLFBI2840-61-77 10:53:0067[facility] UqaukqhFHXCXLOZIZ0710-82-89 10:53:0011.0[facility] UxbiiemVFUAVY2369-31-72 10:53:0056[facility] PhdhhddTLEXUB2357-98-64 10:53:86835Pxqwaveq HermannLIPIDS 2019-10-11 10:53:0061[facility] GrruyxwLKRKAF7040-49-98 10:53:00* Test Item Value Reference Range Interpretation Comments CHD Risk (test code = CHD Risk) 2.00 1 4.00-7.30 [facility] TnabhytUFJVMV7765-68-01 10:53:0050[facility] HmwxzhoRJOTEW0935-60-57 10:53:00* Test Item Value Reference Range Interpretation Comments VLDL (test code = VLDL) 11 1 [facility] LgqifdgWIPRGFOGGE9433-41-93 04:29:007[facility] STOOL 2019-10-11 04:29:00Clear (10/10/19 10:29 PM)[facility] ST[facility]OL 2019-10-11 04:29:00* Test Item Value Reference Range Interpretation Comments UA Spec Grav (test code = UA Spec Grav) 1.024 1 [facility] [id number] 04:29:00* Test Item Value Reference Range Interpretation Comments UA pH (test code = UA pH) 7.0 1 5.0-8.0 [facility] [id number] 04:29:00Negative *NA*(10/10/19 10:29 PM)[facility] [id number] 04:29:00Negative (10/10/19 10:29 PM) [facility] XPXEK5801-83-92 04:29:004.0[facility] [id number] 04:29:00Negative (10/10/19 10:29 PM)[facility] [id number] 04:29:00Negative (10/10/19 10:29 PM)[facility] FIJYI3960-35-23 04:29:001[facility] [id number] 04:29:00<1 [facility] [id number] 04:29:0067.30[facility] CHEM 2019-10-11 04:29:005.0[facility] [id number] 04:29:00* Test Item Value Reference Range Interpretation Comments U Prot/Creat (test code = U Prot/Creat) 0.07 1 [facility] [id number] 04:29:00None Seen (10/10/19 10:29 PM) [facility] [id number] 04:29:0071[facility] HermannIMMUNOLOGY 2019-10-10 11:41:00Negative *NA*(10/10/19 5:41 AM)[facility] HermannIMMUNOLOGY 2019-10-10 11:41:00Negative *NA*(10/10/19 5:41 AM)[facility] HermannIMMUNOLOGY 2019-10-10 11:41:00Negative *NA*(10/10/19 5:41 AM)[facility] HermannIMMUNOLOGY 2019-10-10 11:41:00Negative *NA*(10/10/19 5:41 AM)[facility] HermannCHEM PANEL 2019-10-09 20:05:0091[facility] HermannCHEM [id number] 20:05:0025[facility] HermannCHEM EMOBM3229-90-40 20:05:001.30[facility]annCHEM HIHRD3526-30-16 20:05:77580Oumnxkrc HermannCHEM WGDNC3137-86-85 20:05:004.3[facility]annCHEM HPUBO7977-08-72 20:05:07594Vpbckqlw HermannCHEM MVTHM0162-27-59 20:05:0031 [facility]annCHE[facility] [id number] 20:05:009.6[facility] HermannCHEM PANEL 2019-10-09 20:05:005.7[facility] HermannCHEM [id number] 20:05:002.2[facility]annCHEM HXFBG0914-17-18 20:05:0083[facility]annCHEM CRVKP1104-36-91 20:05:0070[facility] HermannCHEM JJKDX3106-21-95 20:05:65364Ayblmjqh HermannCHEM VZSYI8686-91-43 20:05:000.9[facility]annCHEM ZSDKD1333-77-91 20:05:007.3 [facility]annCHEM NZEXR7701-61-77 20:05:00* Test Item Value Reference Range Interpretation Comments B/C Ratio (test code = B/C Ratio) 19 1 6-25 [facility]annCHEM [id number] 20:05:003.5[facility] HermannCHEM PANEL 2019-10-09 20:05:00* Test Item Value Reference Range Interpretation Comments A/G Ratio (test code = A/G Ratio) 0.6 1 0.7-1.6 [facility] [id number] 20:05:0055[facility]annCHEM PANEL 2019-10-09 20:05:002.7[facility]CHE[facility] VTGBR2668-77-50 20:05:21844Rohisasx LkbfszsBMBSXEMFSY2044-37-18 20:05:002.4[facility] NmgdlkhPSXUUZKSYJ6915-40-69 20:05:005.00[facility] OumibhsQPBAEAHODJ2641-52-97 20:05:0014.5[facility] Anibal QKIBOAYRUY6604-32-11 20:05:0043.2[facility] WgpglmgONOWVOKTIF7710-02-49 20:05:00 86.4[facility] TdchzeoHRLZXJILBW3387-42-59 20:05:00* Test Item Value Reference Range Interpretation Comments MCH (test code = MCH) 29.0 pg 27.0-31.0 [facility] WzdvvklBKQMXCGGAF5766-90-53 20:05:0033.5[facility]annHEMATOLOGY 2019-10-09 20:05:0018.0[facility] YtiisqbPKKWLBEIHM3705-97-33 20:05:0061[facility] PhmxuyvPHKETPKUXE8496-27-32 20:05:0010.5[facility] QtnxmhtXPWOWCRFJD9016-76-03 20:05:0012[facility] AwmtiotGNDUQAUMFI5556-38-80 20:05:00Normal (10/09/19 2:05 PM) [facility] ArrtytpJCXTWSNQRN8396-57-60 20:05:0054.3[facility]annHEMATOLOGY 2019-10-09 20:05:0022.6[facility] UqsnkjoNRRTMTWOFZ7645-14-93 20:05:0018.4[facility] LptssujYEPAPAXYKK4663-77-44 20:05:003.7[facility] WzacrdiPNTPCAFPFF0954-23-11 20:05:001.0[facility] ZdlryuiACAYIBXJOP1191-75-36 20:05:001.3[facility] Anibal NCIHXQRUYZ0628-84-67 20:05:000.5[facility] EfgwvtuTINMTRAOXE3202-43-33 20:05:000.4 [facility] JpqwvnlCFXVOKXTPI4280-61-41 20:05:000.1[facility] HermannIMMUNOLOGY 2019-10-09 20:05:001.4[facility]- XR FLUORO FOR SPINE GAR7430-86-25 11:00:00 Patient Name: PIERRE PHILLIPS Unit No: [id number] EXAMS: CPT CODE: [id number] XR FLUORO FOR SPINE INJ 69079 LUMBAR DISCOGRAM AND PLACEMENT OF INTRADISCAL STEROIDS REFERRING PHYSICIAN: PREOPERATIVE DIAGNOSIS: Degenerative lumbar disc disease. POSTOPERATIVE DIAGNOSIS: Lumbar degenerative disc disease 2. PROCEDURE PERFORMED: Fluoroscopically guided needle localization of the level L3-4, L4-5 discs with provocative discography, placement of intradiscal steroids FINDINGS: The level L3-4, L4-5 discogram showed: a) Provocation was concordant at L4-5 for back pain, negative at L3-4 b) L4-5 disc was positive for back pain with annular degeneration, L5-S1 disc was negative with annular degeneration c) Injectate volume:4 ml, 1 cc Omnipaque dye, 10 mg Kenalog, 10 mg Ancef, 1 mL 0.75% Marcaine ANTIBIOTIC: Cefazolin IV and intradiscal ESTIMATED BLOOD LOSS:Minimal ANESTHESIA:(TIVA) Total intravenous anesthetic (patient intolerant to sedatives and hypnotics) COMPLICATIONS:None DETAILS OF PROCEDURE: After obtaining stable vital signs, informed consent and IV access, there were no laboratory, radiographic or other contraindications to proceeding. The patient received preoperative antibiotics and was taken to the fluoroscopy suite where the patient was placed in a prone position with all extremities padded and appropriate monitors placed. The patient was sterilely prepped and draped over the l umbosacral spine. Under fluoroscopic visualization the level s L3-4, L4-5 discs were visualized and the insertion sites were marked for paramedian approaches. Lidocaine 1.5%, 2 ml, was infiltrated into the ski n, subcutaneous tissue, and superficial musculature after which a 20 gauge spinal introducer needle was advanced to the level of the [facility] NAME: PIERRE PHILLIPS HUMZA [address] [facility] in PHYS: Darius Garner MD [place], [place] [address] : 1950 AGE: 69 SEX: M LOC: YNoheliaFABIENNE PHONE #: [phone] EXAM DATE: 09/17/2019 STATUS: [facility] FAX #: [phone] RAD #: D/C DT PAGE 1 Shoshana d Report (CONTINUED) Patient Name: PIERRE PHILLIPS Unit No: [id number] EXAMS: CPT CODE: [id number] XR FLUORO FOR SPINE INJ 31300 <Continued> facets. A 25 gauge curved B-bevel needle was then passed through the introducer and advanced into the center of the disc. No paresthesias were elicited. Isovue 300 contrast was then injected with a manometric syringe to produce the discogram. Opening, symptomatic and peak pressures were recorded. Each disc was then injected with antibiotics and the symptomatic discs were also injected with triamcinolone/bupivacaine. The needles were removed and sterile Band- Aids were placed over the insertion sites. The patient was taken to the recovery room in stable condition. at 1100 Reported and signed by: Darius Ogden M.D. CC: Darius Ogden MD Technologist: SHAWNA ROBINS RT(R) Transcribed D/ (1100) Sami.TERRAD [facility] NAME: EKTASONJAPIERRE Mercado HUMZA [address] [facility] PHYS: Darius Garner MD [place], [place] [address] : 1950 AGE: 69 SEX: M LOC: Y.FABIENNE PHONE #: [phone] EXAM DATE: 09/17/2019 STATUS: [facility] FAX #: [phone] RAD #: D/C DT PAGE 2 Signed Report Patient Name: PIERRE PHILLIPS Unit No: [id number] EXAMS: CPT CODE: [id number] XR FLUORO FOR SPINE INJ 67364 <Continued> Orig Print D/T: S: 09/19/2019 (1103) [facility] NAME: PIERRE PHILLIPS [address] [facility] PHYS: DOCUD - Doctor,Darius Pearl MD [place], [place] [address] : 1950 AGE: 69 SEX: M LOC: RENEE PHONE #: [phone] EXAM DATE: 09/17/2019 STATUS: [facility] FAX #: [phone] RAD #: D/C DT PAGE 3 Signed Report - XR CHEST 2 [id number] 14:33:00 FAX: Krunal Seymour MD [phone] [place]: St: REG Name: PIERRE REILLY [facility] : [birth year] Age/S: 69/M [address] [place] [address] Unit #: [id number] Loc: [place] [address] Phys: Krunal Brown MD Acct: [id number] Dis Date: Status: REG CLI PHONE #: [phone] Exam Date: 07/09/2019 1422 FAX #: [phone] Reason: Z87.01, HX OF PNEUMONIA. EXAMS: CPT CODE: [id number] XR CHEST 2 V 22430 CHEST RADIOGRAPHS - PA AND LATERAL : COMPARISON: May 14, 2003 CLINICAL HISTORY: Z87.01, HX OF PNEUMONIA. The cardiopericardial silhouette is withi n normal limits. No acute infiltrates are seen. Small calcified granuloma noted in the left midlung. No vascular congestion or pneumothorax. IMPRESSION: No acute pulmon byron abnormality. Electronically Signed by Tl Sommer on 07/09 at 1433 Reported and signed by: Delta Sommer M.D. CC: Krunal BROWN Technologist: RT Angelica(Pascual) Trnscrd Date/Time/By: 07/09/2019 (2473) : By: [email or web address] Orig Print D/T: S: (9523) PAGE 1 Signed Rep ort CHEST 2 [id number] 13:54:00 [place] [address] Patient Name: PIERRE PHILLIPS MR #: [id number] : 1950 Age/Sex: 68/M Req #: [id number] Adm Physician: Ordered by: JJ LOMAS MD Report #: [id number] Location: OR Room/Bed: Procedure: [id number] DX/VELIA ST 2 VIEWS Exam Date: Exam Time: REPORT STATUS: Signed EXAMINATION: CHEST 2 VIEWS INDICATION: Preop for biopsy PER PROTOCOL PRE ADMIT COMPARISON: None FINDINGS: TUBES and LINES: None. LUNGS: Lizzie ngs are well inflated. Lungs are clear. There is no evidence of pneumonia o r pulmonary edema. PLEURA: No pleural effusion or pneumothorax. HEART AND MEDIASTINUM: The cardiomediastinal silhouette is unremarkable. ADAMARIS BOLIVAR AND SOFT TISSUES: No acute osseous lesion. Soft tissues are unremarkable . UPPER ABDOMEN: No free air under the diaphragm. IMPRESSION: N o acute thoracic abnormality. Signed by: Dr. Kaley Reyes M.D. on 019 1:55 PM Dictated By: KALEY REYES MD, MD [id number] Transcribed By: LAURA on 02/11/191354 COPY TO: JJ LOMAS MD
--- NOTE | 2020-07-24 14:48 | Diagnostic Imaging Report ---
OR Fluoroscopy: IMPRESSION: Fluoroscopy service provided in the OR. Interpretation not requested. Signed by: Ruel Yuen MD on 07/24/2020 2:45 PM
[2020-07-24] MEDS ORDERED: MEPERIDINE HCL INJ 25 MG/ML VIAL ONE (14:58)
[2020-07-24 14:59] LABS: ANION GAP 11.4 mmol/L (8-16); BLOOD UREA NITROGEN 15 mg/dL (7-26); BUN/CREATININE RATIO 18 (6-25); CALCIUM 9.1 mg/dL (8.4-10.2); CARBON DIOXIDE 27 mmol/L (22-29); CHLORIDE 106 mmol/L (98-107); CREATININE, SERUM 0.85 mg/dL (0.72-1.25); EST GLOMERULAR FILTRATION RATE > 60 ML/MIN (60-); GLUCOSE 93 mg/dL (74-118); POTASSIUM 4.4 mmol/L (3.5-5.1); SODIUM 140 mmol/L (136-145)
[2020-07-24] MEDS ORDERED: HYDRALAZINE HCL 20 MG/ML VIAL ONE (15:24)
[2020-07-24 16:00] VITALS: BP 128/68
[2020-07-24] MEDS: D5.45%NS/KCL 20MEQ 1,000 ML IV SCH (16:27)
[2020-07-24] MEDS: DOCUSATE SODIUM 100 MG CAP PO SCH (16:28)
[2020-07-24 16:30] VITALS: BP 128/68
[2020-07-24 16:38] VITALS: BP 128/68
[2020-07-24] MEDS ORDERED: NITROGLYCERIN 0.4 MG SUBL SL PRN (18:00)
[2020-07-24 20:00] VITALS: BP 127/75
--- NOTE | 2020-07-24 20:16 | History and Physical ---
REASON FOR ADMISSION: Status post TURP. POT FEEDER: Dr. Henrique Silva, surgeon postop. HISTORY OF PRESENT ILLNESS: The patient is a 70-year-old male, status post TURP procedure. The patient has history of enlarged prostate with urinary retention. He also has a left UVJ stone history and dyslipidemia and multiple other chronic medical problems, recurrent prostate infection, and he also has coronary artery disease with previous PTCA and stent. The patient is stable with respect to his chronic medical problem, now status post TURP with cystoscopy. Postop, the patient is stable. He does have some hematuria, but no significant obstruction. He is getting urinary bladder irrigation for prevention of clotting. The patient is otherwise stable. PAST MEDICAL HISTORY: Allergic rhinitis, gout, hypertension, enlarged prostate with urinary retention, recurrent prostatitis and urinary tract infection, coronary artery disease with previous PTCA and stent. PAST SURGICAL HISTORY: Right inguinal hernia repair, colonoscopy in 2019 with polypectomy, tonsillectomy, he had lumbar spine spur repair, status post TURP, PTCA percutaneous coronary angioplasty with stent. SOCIAL HISTORY: The patient does not smoke or use alcohol. No regular drug use. ALLERGIES: NO KNOWN ALLERGIES. HOME MEDICATIONS: The patient is on allopurinol, aspirin, nasal spray, Coreg, cholestyramine, doxazosin, furosemide, gabapentin, multivitamin, Niaspan, simvastatin, Flomax, nitroglycerin p.r.n. REVIEW OF SYSTEMS: Penile discomfort with Escalante catheter in place. Suprapubic discomfort. No chest pain. No shortness of breath, abdominal pain, or any neurological deficit. No nausea or vomiting. The patient is moving all extremities. PHYSICAL EXAMINATION: VITAL SIGNS: Temperature is 98, blood pressure 128/68, pulse rate 87, respirations 20. GENERAL: The patient is not in acute distress. He is awake. HEENT: Normocephalic and atraumatic. Anicteric. NECK: Supple grossly. PULMONARY: Clear. CARDIOVASCULAR: Regular rhythm. ABDOMEN: Soft, nondistention. Escalante catheter in place. Continuous urinary irrigation. EXTREMITIES: No cyanosis or edema. NEUROLOGIC: No gross focal deficit. LABORATORY DATA: Sodium is 140, potassium 4.4, chloride 106, bicarb 27, BUN is 15, creatinine is 0.8, glucose 93. WBC 4.3, hemoglobin 11.8, hematocrit 36.7, and platelets 111. ASSESSMENT: 1. The patient is status post transurethral resection of the prostate and cystoscopy. The patient is stable postop, getting continuous urinary irrigation. 2. Baseline coronary artery disease with previous stent and angioplasty along with hypertension, dyslipidemia, enlarged prostate, baseline thrombocytopenia stable, leukopenia stable, and other chronic medical problems stable as well. PLAN: Continue with urinary bladder irrigation. Resume the patient's home medication. SCD and incentive spirometry. to the thigh area while the patient in bed for DVT prophylaxis. Adjust the patient's medication. Repeat lab work. Continue with postoperative care order by Dr. Henrique Silva. Continue the patient with pain management at this time. Continue with urinary bladder irrigation. Continue to monitor the patient closely. MD RAVEN Daniel/DOUGLAS /[id number]
[2020-07-24] MEDS: TAMSULOSIN HCL 0.4 MG CAP PO SCH (21:32)
[2020-07-24] MEDS: GABAPENTIN 100 MG CAP PO SCH (21:32)
[2020-07-24] MEDS: DOXAZOSIN MESYLATE 2 MG TAB PO SCH (21:32)
[2020-07-24] MEDS: SIMVASTATIN 80 MG TAB PO SCH (21:32)
[2020-07-24 23:59] VITALS: BP 125/73
[2020-07-25] VITALS (9 sets, daily range): BP systolic 101–123; BP diastolic 53–67
[2020-07-25] MEDS: D5.45%NS/KCL 20MEQ 1,000 ML IV SCH ×2 (02:42→07:32)
[2020-07-25 05:39] LABS: BASOPHILS % 0.1 % (0.0-1.0); HEMATOCRIT 36.7 % (38.2-49.6); HEMOGLOBIN 11.9 g/dL (14.0-18.0); LYMPHOCYTES # (AUTO) 0.3 (1.0-3.2); LYMPHOCYTES % 4.2 % (18.0-39.1); MEAN CORPUSCULAR HEMOGLOBIN 27.3 pg (28-32); MEAN CORPUSCULAR HGB CONC 32.4 g/dL (31-35); MEAN CORPUSCULAR VOLUME 84.2 fL (81-99); MONOCYTES # (AUTO) 0.5 (0.2-0.8); MONOCYTES % 6.7 % (4.4-11.3); NEUTROPHILS # (AUTO) 6.5 (2.1-6.9); NEUTROPHILS % 88.6 % (38.7-80.0); PLATELET COUNT 107 x10e3/uL (140-360); RED BLOOD COUNT 4.36 x10e6/uL (4.3-5.7); RED CELL DISTRIBUTION WIDTH 17.5 % (11.7-14.4)
[2020-07-25 06:12] LABS: BLOOD UREA NITROGEN 17 mg/dL (7-26); BUN/CREATININE RATIO 20 (6-25); CARBON DIOXIDE 29 mmol/L (22-29); CHLORIDE 103 mmol/L (98-107); CREATININE, SERUM 0.87 mg/dL (0.72-1.25); EST GLOMERULAR FILTRATION RATE > 60 ML/MIN (60-); GLUCOSE 132 mg/dL (74-118); SODIUM 136 mmol/L (136-145)
[2020-07-25] MEDS: CEFTRIAXONE SOD 1 GM/NS 50 ML 50 ML IV SCH (08:25)
[2020-07-25] MEDS: AZELASTINE HCL 137 MCG NASAL SPRAY NS SCH (08:25)
[2020-07-25] MEDS: ALLOPURINOL 100 MG TAB PO SCH (08:27)
[2020-07-25] MEDS: DOCUSATE SODIUM 100 MG CAP PO SCH ×2 (08:27→17:06)
[2020-07-25] MEDS: CHOLESTYRAMINE 4 GM PACKET PO SCH (08:27)
[2020-07-25] MEDS: CARVEDILOL 12.5 MG TAB PO SCH (08:27)
[2020-07-25] MEDS: ACETAMINOPHEN/CODEINE 300MG - 30MG TAB PO PRN ×2 (10:21→17:37)
[2020-07-25 10:58] LABS: LYMPHOCYTES % (MANUAL) 6 % (19-48); MONOCYTES % (MANUAL) 7 % (3.4-9.0); NEUTROPHILS % (MANUAL) 87 % (40-74); PLATELET MORPHOLOGY COMMENT NORMAL; RBC MORPHOLOGY COMMENT NORMAL
[2020-07-25 10:59] LABS: PLATELET ESTIMATE SLIGHTLY DECREASED
--- NOTE | 2020-07-25 13:43 | NUR ---
Nutrition Screen Note RD Recommendation for Physician: Continue diet as ordered Plan of Care: RD following, monitoring for tolerance and adequacy Nutrition reason for involvement: Nutrition Risk Trigger MST Primary Diagnose(s): Prostatism PMH: CAD Ht70: in Wt:146lb BMI:20.9 kg/m2 IBW:166lb RD Assessment: (07/25/2020) Chart reviewed. Labs and meds reviewed. Initial encounter with patient. Diet Hx: NKFA. Pt is reporting a good appetite/Po intake. Pt denies any difficulty chewing, swallowing, nor has any nausea or vomiting. Pt is able to feed himself Current Diet: regular Malnutrition Evaluation (07/25/20) The patient does not meet criteria for a specified degree of malnutrition at this time. Will re-evaluate at follow-up as appropriate. Diet Education Needs Assessment: Diet education not indicated. Nutrition Care Level: Pravin Wong RD, LD, CNSC
--- NOTE | 2020-07-25 15:14 | Operative Report ---
DATE OF PROCEDURE: 07/24/2020 SURGEON: Henrique Silva MD PREOPERATIVE DIAGNOSES: 1. Obstructive benign prostatic hypertrophy. 2. History of urolithiasis. 3. Possible urinary tract infection. POSTOPERATIVE DIAGNOSES: 1. Obstructive benign prostatic hypertrophy. 2. History of urolithiasis. 3. Possible urinary tract infection. OPERATION PERFORMED: 1. Cystourethroscopy with bilateral ureteral catheterization and retrograde ureteropyelography (separate procedure performed for urine tract infection possibility as well as the history of stones). 2. Interpretation of retrograde ureteropyelography. 3. Supervision of fluoroscopy, no radiologist present. 4. Cystourethroscopy with photoselective vaporization of the prostate utilizing the GreenLight laser (separate procedure performed for the obstructive BPH). ANESTHESIA: General. COMPLICATIONS: None. CLINICAL SUMMARY: Anthony Quinteros is a 70-year-old man with complicated history. He has chronic thrombocytopenia which has been stable. The patient does not need chemotherapy according the Dominic. The patient elected to proceed with surgery as planned due to the fact that he has had progressively worsening BPH and failing medical therapy. He is aware of the risks of bleeding, infection, injury to adjacent structures, need for additional procedures and he elected to proceed. OPERATIVE PROCEDURE IN DETAIL: Informed consent was verified. Anthony Quinteros was properly identified, taken to the operating room, placed on the cystoscopy table in supine position. Anesthesia was uneventfully begun. The patient was then carefully gently repositioned in dorsal lithotomy position with all pressure points well padded. His genitalia were prepared and draped in usual sterile fashion. The cystoscope sheath with a visual obturator in place was atraumatically inserted into the patient's urethra. It was guided unremarkable urethra through the normal sphincteric region, through the prostate bed, which was significant for bilobar prostatic hypertrophy with kissing lateral lobes and visual obstruction. We entered the patient's bladder, which exhibited some mild erythema, so urine culture was sent for documentation. No tumors, no stones, no diverticula. Grade 1 trabeculations were noted. An 8-Northern Irish catheter was used to cannulate each ureter and retrograde ureteropyelograms were performed. Interpretation of retrograde ureteropyelography: Contrast was instilled in retrograde fashion bilaterally. There were no tumors, no stones, and no diverticula. Unobstructed drainage was observed bilaterally fluoroscopically. Photoselective vaporization of the prostate was then carried out from the bladder neck to maneuver past the verumontanum. After delivering 85,096 joules of energy over a total ablation time of 23 minutes and 20 seconds, we had a wide open prostatic channel with excellent hemostasis. The cystoscope was withdrawn. A continuous irrigation Escalante catheter was placed. It was irrigated to further ensure it worked properly. A belladonna and opium suppository were placed and the patient was uneventfully reversed from anesthesia and taken to recovery in stable condition. There were no complications of the procedure. The patient tolerated the procedure well. We will proceed with routine postoperative care and ongoing urological followup. Henrique MD DONAVAN Silva/DOUGLAS /[id number]
--- NOTE | 2020-07-25 17:05 | NUR ---
Patient taken off CBI, per Dr. Silva's orders, encouraged lots of water orally. Patient verbalized understanding.
--- NOTE | 2020-07-25 19:00 | NUR ---
RECEIVED BEDSIDE SHIFT REPORT FROM PREVIOUS NURSE. CALL LIGHT WITHIN REACH. PATIENT IN BED. MOSQUEDA DRAINING YELLOW URINE. PATIENT IN NO PAIN OR DISTRESS.
[2020-07-25] MEDS: DOXAZOSIN MESYLATE 2 MG TAB PO SCH (21:00)
[2020-07-25] MEDS: SIMVASTATIN 80 MG TAB PO SCH (21:10)
[2020-07-25] MEDS: TAMSULOSIN HCL 0.4 MG CAP PO SCH (21:10)
[2020-07-25] MEDS: GABAPENTIN 100 MG CAP PO SCH (21:10)
[2020-07-26 04:00] VITALS: BP 128/69
[2020-07-26 06:05] LABS: BASOPHILS % 0.5 % (0.0-1.0); EOSINOPHILS # (AUTO) 0.1 (0.0-0.4); EOSINOPHILS % 1.8 % (0.0-6.0); HEMATOCRIT 35.2 % (38.2-49.6); HEMOGLOBIN 11.4 g/dL (14.0-18.0); LYMPHOCYTES # (AUTO) 0.3 (1.0-3.2); LYMPHOCYTES % 7.8 % (18.0-39.1); MEAN CORPUSCULAR HEMOGLOBIN 27.8 pg (28-32); MEAN CORPUSCULAR HGB CONC 32.4 g/dL (31-35); MEAN CORPUSCULAR VOLUME 85.9 fL (81-99); MONOCYTES # (AUTO) 0.5 (0.2-0.8); MONOCYTES % 11.7 % (4.4-11.3); NEUTROPHILS % 77.9 % (38.7-80.0); PLATELET COUNT 82 x10e3/uL (140-360); RED CELL DISTRIBUTION WIDTH 17.5 % (11.7-14.4)
[2020-07-26 06:33] LABS: ANION GAP 7.4 mmol/L (8-16); BLOOD UREA NITROGEN 13 mg/dL (7-26); BUN/CREATININE RATIO 17 (6-25); CALCIUM 8.8 mg/dL (8.4-10.2); CARBON DIOXIDE 31 mmol/L (22-29); CHLORIDE 101 mmol/L (98-107); CREATININE, SERUM 0.77 mg/dL (0.72-1.25); EST GLOMERULAR FILTRATION RATE > 60 ML/MIN (60-); GLUCOSE 89 mg/dL (74-118); POTASSIUM 4.4 mmol/L (3.5-5.1); SODIUM 135 mmol/L (136-145)
--- NOTE | 2020-07-26 07:00 | NUR ---
GAVE BEDSIDE SHIFT REPORT TO ONCOMING NURSE. CALL LIGHT WITHIN REACH. PATIENT IN BED. HOURLY ROUNDING PERFORMED
[2020-07-26 08:08] VITALS: BP 123/68
[2020-07-26 08:13] VITALS: BP 123/68
[2020-07-26] MEDS: CHOLESTYRAMINE 4 GM PACKET PO SCH (09:00)
[2020-07-26] MEDS: AZELASTINE HCL 137 MCG NASAL SPRAY NS SCH (09:00)
[2020-07-26] MEDS: DOCUSATE SODIUM 100 MG CAP PO SCH ×2 (09:56→17:25)
[2020-07-26] MEDS: ALLOPURINOL 100 MG TAB PO SCH (09:56)
[2020-07-26] MEDS: CEFTRIAXONE SOD 1 GM/NS 50 ML 50 ML IV SCH (09:56)
[2020-07-26] MEDS: CARVEDILOL 12.5 MG TAB PO SCH (09:56)
--- NOTE | 2020-07-26 12:26 | NUR ---
Escalante discontinued per Doctor's orders. Seriel urines x5, if clear then will discharge home.
[2020-07-26 13:58] VITALS: BP 114/61
[2020-07-26 16:00] VITALS: BP 142/80
--- NOTE | 2020-07-26 17:34 | NUR ---
Patient received discharge order from Dr. Valerio once patient landrum was removed (per Dr. Silva) and had 5 clear serial urines. Patient did not complain of any pain or discomfort.
--- NOTE | 2020-07-26 19:00 | NUR ---
RECEIVED BEDSIDE SHIFT REPORT FROM PREVIOUS NURSE. CALL LIGHT WITHIN REACH. PATIENT GETTING DRESSED TO GO HOME. AT BEDSIDE.
--- NOTE | 2020-07-26 19:20 | NUR ---
PATIENT WAS GIVEN WRITTEN DISCHARGE INSTRUCTIONS AND PRESCRIPTION. PATIENT AND HIS WAS EDUCATED ON FOLLOW UP APPOINTMENTS, STOP ASPIRIN, FILL OUT PRESCRIPTIONS, AND DISCHARGE INSTRUCTIONS. PATIENT AND HIS VERBALIZED UNDERSTANDING. IV WITH CATH WAS TAKEN OUT. AND PATIENT COLLECTED ALL THEIR BELONGINGS. PATIENT IN NO PAIN OR DISTRESS. PATIENT WAS WHEELCHAIRED WITH ALL HIS BELONGINGS TO HIS PRIVATE AUTO. PATIENT GRATEFUL FOR THE CARE RECEIVED
--- NOTE | 2020-07-27 09:35 | Discharge Summary ---
HAND SANDER: Dr. Henrique Silva. FINAL DIAGNOSES: 1. Status post cystoscopy with retrograde and TURP procedure. 2. Status post TURP, require continuous urinary bladder irrigation. 3. Urinary retention with recurrent prostatitis and urinary tract infection. 4. Postop hematuria, resolved. SUMMARY: The patient is a 70-lqms-mhlf with enlarged prostate with urinary retention and recurrent urinary tract infection. At this time, the patient with E coli infection. The patient discharged home with Ceftin. He is stable after TURP procedures. He did have urinary hematuria, but quickly resolved. He did require urinary bladder irrigation continuously. The patient did better. Escalante catheter discontinued. The patient urinated. No gross hematuria. No clotting. The patient discharged home. Resume home medication. Prescription given by Dr. Henrique Silva for pain medication and Ceftin 5 mg twice a day for 14 days. The patient is stable. Follow up with Dr. Henrique Silva for postoperative care. Follow up with family physician for medication reconciliation. Activity as tolerated. Monitor urine output. Resume home diet. MD RAVEN Daniel/DOUGLAS /[id number]
== END 2020-07-26 19:25 | disposition home or self-care (01) | DRG 713 ==
LOC: OR 12:13 → PACU V 14:15 → MED/SURG 16:07
PROVIDERS: ADMIT Internal Medicine; ATTEND Internal Medicine
PROC: BT141ZZ Fluoroscopy of Kidneys, Ureters and Bladder using Low Osmolar Contrast (ICD-10-PCS; 2020-07-24)
PROC: 0VB08ZZ Excision of Prostate, Via Natural or Artificial Opening Endoscopic (ICD-10-PCS; principal; 2020-07-24 13:30)
PROC: 0T788ZZ Dilation of Bilateral Ureters, Via Natural or Artificial Opening Endoscopic (ICD-10-PCS; 2020-07-24 13:30)
DX: N40.1 Benign prostatic hyperplasia with lower urinary tract symptoms (principal); N39.0 Urinary tract infection, site not specified; R33.8 Other retention of urine; R31.9 Hematuria, unspecified; D69.6 Thrombocytopenia, unspecified; E78.5 Hyperlipidemia, unspecified; I25.10 Atherosclerotic heart disease of native coronary artery without angina pectoris; M10.9 Gout, unspecified; Z95.5 Presence of coronary angioplasty implant and graft; D72.819 Decreased white blood cell count, unspecified; I25.2 Old myocardial infarction; Z20.828 Contact with and (suspected) exposure to other viral communicable diseases; I10 Essential (primary) hypertension
CPT/HCPCS: 36415; 52648; 71046; 74420; 80048; 80053; 83735; 84550; 85025; 86900; 87086; 87186; 93005; C1758; J0360; J0696; J1100; J1580; J2001; J2175; J2250; J2270; J2405; J3010; U0002

== ENCOUNTER → 2022-01-28 | Outpatient (CLI) | payer MEDICARE ==
[~2022-01-28] MED LIST changes: +AZELASTINE137 MCG/0.; +GABAPENTIN100 MG PO; +KETOCONAZOLE15 GM TOP; +LOPERAMIDE2 MG PO; +NITROGLYCERIN0.4 MG SL; +QUESTRAN PACKET4 GM PO
== END ==
LOC: CT 11:55
PROVIDERS: ATTEND Urology
DX: N20.0 Calculus of kidney (principal); R16.0 Hepatomegaly, not elsewhere classified
CPT/HCPCS: 74176

== ENCOUNTER → 2022-05-27 | Day surgery (SDC) | payer MEDICARE ==
[2022-05-26 13:21] LABS: BASOPHILS % 0.5 % (0.0-1.0); EOSINOPHILS # (AUTO) 0.2 (0.0-0.4); EOSINOPHILS % 4.1 % (0.0-6.0); HEMATOCRIT 36.3 % (38.2-49.6); HEMOGLOBIN 11.1 g/dL (14.0-18.0); LYMPHOCYTES # (AUTO) 0.6 (1.0-3.2); LYMPHOCYTES % 15.4 % (18.0-39.1); MEAN CORPUSCULAR HEMOGLOBIN 28.9 pg (28-32); MEAN CORPUSCULAR HGB CONC 30.6 g/dL (31-35); MEAN CORPUSCULAR VOLUME 94.5 fL (81-99); MONOCYTES # (AUTO) 0.6 (0.2-0.8); MONOCYTES % 15.7 % (4.4-11.3); NEUTROPHILS # (AUTO) 2.5 (2.1-6.9); PLATELET COUNT 101 x10e3/uL (140-360); RED BLOOD COUNT 3.84 x10e6/uL (4.3-5.7); RED CELL DISTRIBUTION WIDTH 14.5 % (11.7-14.4)
[2022-05-26 13:39] LABS: ANION GAP 14.4 mmol/L (8-16); CALCIUM 9.8 mg/dL (8.4-10.2); CREATININE, SERUM 0.92 mg/dL (0.72-1.25); POTASSIUM 4.4 mmol/L (3.5-5.1)
[~2022-05-27] MED LIST changes: +CEFTRIAXONE 1 GM VIAL ONE; +DEXAMETHASONE SOD PHOS INJ 4 MG/ML SDV ONE; +KETAMINE HCL INJ 50 MG/ML 10 ML VIAL ONE; +MIDAZOLAM HCL 2 MG/2 ML VIAL ONE; +ONDANSETRON HCL INJ 2MG/ML 2ML 2 MG/ML VIAL ONE; +POVIDONE IODINE 0.05% 0.05 % ML PO ONE; +PROPOFOL IV EMULSION 10 MG/ML 20 ML VIAL ONE; +VITAMIN D3 PO
[2022-05-27 11:10] VITALS: BP 160/91
== END | disposition home or self-care (01) ==
LOC: OR 08:40
PROVIDERS: ATTEND Urology
DX: N20.0 Calculus of kidney (principal); I25.10 Atherosclerotic heart disease of native coronary artery without angina pectoris; I10 Essential (primary) hypertension; I25.2 Old myocardial infarction; R00.1 Bradycardia, unspecified; G62.9 Polyneuropathy, unspecified; Z01.810 Encounter for preprocedural cardiovascular examination; Z01.812 Encounter for preprocedural laboratory examination; Z01.818 Encounter for other preprocedural examination; Z79.82 Long term (current) use of aspirin; Z79.899 Other long term (current) drug therapy; Z95.5 Presence of coronary angioplasty implant and graft; Z87.891 Personal history of nicotine dependence
CPT/HCPCS: 36415; 50590; 71046; 74018; 80048; 83970; 84550; 85025; 93005; J0696; J1100; J2250; J2405; J2704

== ENCOUNTER → 2023-01-05 | Outpatient (CLI) | payer MEDICARE ==
[~2023-01-05] MED LIST changes: -CEFTRIAXONE 1 GM VIAL ONE; -DEXAMETHASONE SOD PHOS INJ 4 MG/ML SDV ONE; -KETAMINE HCL INJ 50 MG/ML 10 ML VIAL ONE; -MIDAZOLAM HCL 2 MG/2 ML VIAL ONE; -ONDANSETRON HCL INJ 2MG/ML 2ML 2 MG/ML VIAL ONE; -POVIDONE IODINE 0.05% 0.05 % ML PO ONE; -PROPOFOL IV EMULSION 10 MG/ML 20 ML VIAL ONE
== END ==
LOC: RAD 11:27
PROVIDERS: ATTEND Urology
DX: N20.0 Calculus of kidney (principal)
CPT/HCPCS: 74018